=== PATIENT | male | born 1960 | race Caucasian/White ===

== ENCOUNTER → 2016-06-08 | Outpatient (CLI) | payer BC ==
[2016-06-08 18:57] LABS: ALT/SGPT 40 U/L (12-78); AST/SGOT 21 U/L (15-37); BLOOD UREA NITROGEN 11 mg/dl (7-18); BUN/CREATININE RATIO 11.2 (10-20); CALCIUM 9.1 mg/dl (8.5-10.1); CARBON DIOXIDE 26 mmol/L (21-32); CHLORIDE 103 mmol/L (98-107); GLUCOSE 88 mg/dl (70-99); POTASSIUM 4.1 mmol/L (3.5-5.1); SODIUM 139 mmol/L (136-145)
[2016-06-08 19:04] LABS: ALB/GLOB RATIO 1.2 (0.9-2); ALKALINE PHOSPHATASE 77 U/L (45-117); CHOLESTEROL 191 mg/dl (0-200); CHOLESTEROL/HDL RATIO 2.9; FREE PSA 0.16 ng/ml; HDL CHOLESTEROL 67 mg/dl; LDL CHOLESTEROL CALCULATED 107 mg/dl; PROSTATE SPECIFIC ANTIGEN 0.475 ng/ml (0.000-4.000); TRIGLYCERIDES 87 mg/dl (0-150); VERY LOW DENSITY LIPOPROT CALC 17 mg/dl
== END | disposition home or self-care (01) ==
LOC: C.LABSPEC 17:53
PROVIDERS: ATTEND Family Medicine
DX: Z00.00 Encounter for general adult medical examination without abnormal findings (principal)

== ENCOUNTER 2023-10-18 19:24 | Inpatient (IN) ==
[2023-10-18 20:34] LABS: Basophils # (auto) 0.04 K/uL (0.00-0.20); Basophils % (auto) 0.3 %; Eosinophils # (auto) 0.04 K/uL (0.00-0.50); Eosinophils % (auto) 0.3 %; Hematocrit (blood only) 41.2 % (42.0-52.0); Hemoglobin 14.6 g/dl (14.0-18.0); Immature Granulocytes # (auto) 0.07 K/uL (0.01-0.20); Immature Granulocytes % (auto) 0.5 %; Lymphocytes # (auto) 1.69 K/uL (1.20-3.40); Lymphocytes % (auto) 12.9 %; Mean Corpuscular Hemoglobin 30.5 pg (25.0-34.0); Mean Corpuscular Hgb Conc 35.4 g/dL (32.0-36.0); Monocytes # (auto) 0.95 K/uL (0.11-0.59); Monocytes % (auto) 7.2 %; Neutrophils # (auto) 10.35 K/uL (1.40-6.50); Neutrophils % (auto) 78.8 %; Platelet Count 402 K/uL (130-400); RDW Coefficient of Variation 11.8 % (11.5-14.5); RDW Standard Deviation 36.8 fL (36.4-46.3); Red Blood Count 4.79 M/uL (4.70-6.10); White Blood Count 13.14 K/ul (4.8-10.8)
[2023-10-18 20:59] LABS: Albumin Globulin Ratio 1.3 (0.9-2); Albumin Level 5.1 gm/dl (3.4-5.0); BUN Creatinine Ratio 10.3 (10-20); Bilirubin,Total 0.6 mg/dl (0.2-1.0); Calcium 10.4 mg/dl (8.6-10.3); Creatinine Clr Calc Pharmacy 76.2 ml/min; Est GFR (African American) 85.8 ml/min; Globulin 3.9 gm/dl (2.5-4.0); Potassium 3.7 mmol/L (3.5-5.1)
[2023-10-18] MEDS: OPTIRAY 320 100ml IV ONE (21:53)
[2023-10-18 22:15] LABS: Appearance Urine Clear (Clear); Bilirubin Urine Negative (Negative); Blood Urine Trace (Negative); Color Urine Dark Yellow; Epithelial Cell Urine Auto 0-2 /hpf (0-2); Glucose Urine UA Negative (Negative); Ketones Urine 1+ (Negative); Leukocyte Esterase Urine Trace (Negative); Nitrite Urine Negative (Negative); Protein Urine 1+ (Negative); Specific Gravity Urine 1.025 (1.000-1.030); Urobilinogen Urine Negative (Negative); WBC Urine Automated 0-5 /hpf (0-5)
[2023-10-18 22:40] LABS: Mucus Urine Present (None Prsent)
[2023-10-18 22:43] LABS: Bacteria Urine Automated 1+ (None Seen)
[2023-10-19] MEDS: SODIUM CHLORIDE 0.9% 1,000 ML IV ONE (00:28)
[2023-10-19] MEDS: cefTRIAXone SODIUM 2,000 MG/50 ML BAG IV STA (00:28)
--- NOTE | 2023-10-19 01:13 | CT Scan Report ---
Exam(s): CT ABDOMEN + PELVIS With Contrast IV Amt: 90ml optiray 320 EXAM: CT Abdomen and Pelvis With Intravenous Contrast CLINICAL HISTORY: Reason for exam: lower abdominal pain; dysuria. TECHNIQUE: Axial computed tomography images of the abdomen and pelvis with intravenous contrast. CTDI is 23.79 mGy and DLP is 1192.29 mGy-cm. Automated exposure control was utilized for the study. A dose lowering technique was utilized adhering to the principles of ALARA. CONTRAST: Patient received 90ml optiray 320 of IV contrast COMPARISON: No relevant prior studies available. FINDINGS: Lung bases: Unremarkable. No mass. No consolidation. ABDOMEN: Liver: Unremarkable. No mass. Gallbladder and bile ducts: Unremarkable. No calcified stones. No ductal dilation. Pancreas: Unremarkable. No mass. No ductal dilation. Spleen: Unremarkable. No splenomegaly. Adrenals: Unremarkable. No mass. Kidneys and ureters: Unremarkable. No solid mass. No hydronephrosis. Stomach and bowel: Diverticulosis, without acute diverticulitis. No small bowel obstruction. No free intraperitoneal air. PELVIS: Appendix: No findings to suggest acute appendicitis. Bladder: Mild wall thickening of the urinary bladder, correlate for UTI. Reproductive: Unremarkable as visualized. ABDOMEN and PELVIS: Intraperitoneal space: Unremarkable. No free air. No significant fluid collection. Bones/joints: Degenerative changes of the spine. No acute fracture. No dislocation. Soft tissues: Unremarkable. Vasculature: Atherosclerotic changes of the aorta. No abdominal aortic aneurysm. Lymph nodes: Unremarkable. No enlarged lymph nodes. IMPRESSION: Diverticulosis, without acute diverticulitis. No small bowel obstruction. No free intraperitoneal air. Mild wall thickening of the urinary bladder, correlate for UTI. Electronically signed by: Omi Valerio MD 10/19/23 01:12 AM
--- NOTE | 2023-10-19 03:53 | History & Physical Report ---
Date of Service October 19, 2023 Assessment & Plan (1) Hyponatremia: Plan: 62-year-old male with past medical history significant for prediabetes, mixed hyperlipidemia, hypertension, GERD, BPH, hereditary and idiopathic peripheral neuropathy, ongoing tobacco abuse, history of pulmonary embolism and history of DVT comes because of urinary symptoms also found to have hyponatremia. Patient states last week he went to urgent care in [place] because of difficulty micturating and was told possible prostatitis and was prescribed Bactrim. Started taking Bactrim last Tuesday. Initially symptoms seem to improved. Has an appointment with [facility] urology October 18. But since Tuesday again he started to develop same symptoms and came here. Has lower abdominal pain. When he came in lower abdominal pain was 7/10 in severity. He did not notice any blood in the urine. Somewhat constipated. Not eating much since his symptoms started. Denies any fevers. No chest pain or shortness of breath. No cough. No headache. No blurred vision. No runny nose or sore throat. Patient states smokes 1-1 and half packs cigarettes daily. Drinks 10-12 beers daily. Smokes marijuana couple of times a week. Patient states he did not drink alcohol this whole this week and he does not think will go through withdrawal. hyponatremia sodium 121 most likely beer potomania also seems poor oral intake last few days will check urine osmolality, urine sodium and serum osmolality gentle fluids normal saline at rate of 50 mill per hour BMP every 6 hours slow correction closely monitor labs holding chlorthalidone nephrology consult for further recommendations UTI BPH possible prostatitis empiric Rocephin continue home Flomax urology consult alcoholism drinks 10-12 beers daily alcohol withdrawal protocol with gabapentin and IV Ativan as needed banana bag p.o. thiamine and folic acid close monitor tobacco abuse needs counseling history of DVT and PE on Eliquis hypertension on lisinopril and metoprolol succinate holding chlorthalidone IV labetalol as needed will monitor hyperlipidemia on statin GERD on omeprazole history of palpitations metoprolol succinate nightly history of anxiety on Prozac DVT prophylaxis on Eliquis disposition telemetry full code. History of Present Illness Chief Complaint: acute UTI, hyponatremia, alcoholism Primary Care Provider: Raimundo Flaherty DO 62-year-old male with past medical history significant for prediabetes, mixed hyperlipidemia, hypertension, GERD, BPH, hereditary and idiopathic peripheral neuropathy, ongoing tobacco abuse, history of pulmonary embolism and history of DVT comes because of urinary symptoms also found to have hyponatremia. Patient states last week he went to urgent care in [place] because of difficulty micturating and was told possible prostatitis and was prescribed Bactrim. Started taking Bactrim last Tuesday. Initially symptoms seem to improved. Has an appointment with [facility] urology October 18. But since Tuesday again he started to develop same symptoms and came here. Has lower abdominal pain. When he came in lower abdominal pain was 7/10 in severity. He did not notice any blood in the urine. Somewhat constipated. Not eating much since his symptoms started. Denies any fevers. No chest pain or shortness of breath. No cough. No headache. No blurred vision. No runny nose or sore throat. Patient states smokes 1-1 and half packs cigarettes daily. Drinks 10-12 beers daily. Smokes marijuana couple of times a week. Patient states he did not drink alcohol this whole this week and he does not think will go through withdrawal. Past medical history. As mentioned above past surgical history. Colonoscopy. Social history. Smokes 1-1 and a pack a day for last 35 years. Alcohol 10-12 beers daily. Smokes marijuana couple of times a week. Family history. Mother had diabetes And hypertension. Allergies Allergy/AdvReac Type Severity Reaction Status Date / Time Penicillins Allergy Hives Verified 10/19/23 00:33 Home Medications Medication Instructions Recorded Confirmed Type apixaban 5 mg tablet (Eliquis) 5 mg PO BID 10/19/23 10/19/23 History chlorthalidone 25 mg tablet 12.5 mg PO QAM 10/19/23 10/19/23 History fluoxetine 20 mg capsule 20 mg PO QAM 10/19/23 10/19/23 History lisinopril 40 mg tablet 40 mg PO DAILY 10/19/23 10/19/23 History metoprolol succinate 25 mg 12.5 mg PO HS 10/19/23 10/19/23 History tablet,extended release 24 hr omeprazole 20 mg capsule,delayed 20 mg PO DAILYBB 10/19/23 10/19/23 History release pravastatin 10 mg tablet 10 mg PO QAM 10/19/23 10/19/23 History sulfamethoxazole 800 1 tab PO BID 10/19/23 10/19/23 History mg-trimethoprim 160 mg tablet tamsulosin 0.4 mg capsule 0.4 mg PO QAM 10/19/23 10/19/23 History Past Med/Surg History Problem List (Updated 10/19/23 @ 06:36 by Mari Tee DO) Acute hyponatremia (Acute) Urinary tract infection Hyponatremia Medical History HTN (hypertension) Family History Other Heart disease Hypertension Social History Smoking Status: Current every day smoker Tobacco Type: Cigarettes Preferred Language: Serbian Feels Safe at Home: Yes Review of Systems Review of Systems: All systems reviewed & are unremarkable except as noted in HPI & below Physical Exam Physical Exam: General- Not in distress Head- atraumatic Eyes- PERRL. ENT- oropharynx clear Neck- supple, no JVD. Lungs- clear to auscultation no wheezing or crackles. Heart- regular rhythm; no murmur, no gallop. Abdomen- normal bowel sounds, soft, nontender, no distension Extremities- no pretibial edema, no erythema seen Neuro- alert, oriented PERRL, ; no facial palsy; no dysarthria; moves extremities. Results & Data Results & Data Vital Signs (Past 12 Hours) Vital Signs Temp Pulse Pulse Resp BP BP Pulse Ox 10/19/23 03:20 67 16 154/84 H 97 10/19/23 01:30 70 17 143/82 H 98 10/19/23 00:30 86 17 174/96 H 99 10/19/23 00:20 81 10/19/23 00:19 86 13 95 10/18/23 19:45 36.7 C 108 H 16 173/104 H 97 O2 Del Method 10/19/23 03:20 Room Air 10/19/23 01:30 Room Air 10/19/23 00:30 Room Air 10/19/23 00:20 10/19/23 00:19 Room Air 10/18/23 19:45 Room Air Diagnostic Findings Laboratory Results WBC 13.14 K/ul (4.8-10.8) H 10/18/23 20:16 RBC 4.79 M/uL (4.70-6.10) 10/18/23 20:16 Hgb 14.6 g/dl (14.0-18.0) 10/18/23 20:16 Hct 41.2 % (42.0-52.0) L 10/18/23 20:16 MCV 86.0 fL (80.0-100.0) 10/18/23 20:16 MCH 30.5 pg (25.0-34.0) 10/18/23 20:16 MCHC 35.4 g/dL (32.0-36.0) 10/18/23 20:16 RDW Std Deviation 36.8 fL (36.4-46.3) 10/18/23 20:16 RDW Coeff of Tyron 11.8 % (11.5-14.5) 10/18/23 20:16 Plt Count 402 K/uL (130-400) H 10/18/23 20:16 MPV 9.0 fL (9.4-12.4) L 10/18/23 20:16 Immature Gran % (Auto) 0.5 % 10/18/23 20:16 Neut % (Auto) 78.8 % 10/18/23 20:16 Lymph % (Auto) 12.9 % 10/18/23 20:16 Murray % (Auto) 7.2 % 10/18/23 20:16 Eos % (Auto) 0.3 % 10/18/23 20:16 Baso % (Auto) 0.3 % 10/18/23 20:16 Neut # (Auto) 10.35 K/uL (1.40-6.50) H 10/18/23 20:16 Lymph # (Auto) 1.69 K/uL (1.20-3.40) 10/18/23 20:16 Murray # (Auto) 0.95 K/uL (0.11-0.59) H 10/18/23 20:16 Eos # (Auto) 0.04 K/uL (0.00-0.50) 10/18/23 20:16 Baso # (Auto) 0.04 K/uL (0.00-0.20) 10/18/23 20:16 Immature Gran # (Auto) 0.07 K/uL (0.01-0.20) 10/18/23 20:16 Sodium 121 mmol/L (136-145) L 10/18/23 20:16 Potassium 3.7 mmol/L (3.5-5.1) 10/18/23 20:16 Chloride 86 mmol/L (98-107) L 10/18/23 20:16 Carbon Dioxide 24 mmol/L (21-32) 10/18/23 20:16 Anion Gap 11 (3-11) 10/18/23 20:16 BUN 11 mg/dl (6-23) 10/18/23 20:16 Creatinine 1.07 mg/dl (0.6-1.4) 10/18/23 20:16 Est Cr Clr Drug Dosing 76.2 ml/min 10/18/23 20:16 Est GFR ( Amer) 85.8 ml/min 10/18/23 20:16 Est GFR (Non-Af Amer) 74.0 ml/min 10/18/23 20:16 BUN/Creatinine Ratio 10.3 (10-20) 10/18/23 20:16 Glucose 129 mg/dl (70-99(Fasting)) H 10/18/23 20:16 Calcium 10.4 mg/dl (8.6-10.3) H 10/18/23 20:16 Total Bilirubin 0.6 mg/dl (0.2-1.0) 10/18/23 20:16 AST 20 U/L (13-39) 10/18/23 20:16 ALT 26 U/L (7-52) 10/18/23 20:16 Alkaline Phosphatase 119 U/L (34-104) H 10/18/23 20:16 Total Protein 9.0 gm/dl (6.0-8.3) H 10/18/23 20:16 Albumin 5.1 gm/dl (3.4-5.0) H 10/18/23 20:16 Globulin 3.9 gm/dl (2.5-4.0) 10/18/23 20:16 Albumin/Globulin Ratio 1.3 (0.9-2) 10/18/23 20:16 Lipase 69 U/L (11-82) 10/18/23 20:16 Urine Color Dark Yellow 10/18/23 21:22 Urine Appearance Clear (Clear) 10/18/23 21:22 Urine pH 7.0 (4.5-7.5) 10/18/23 21:22 Ur Specific [place] 1.025 (1.000-1.030) 10/18/23 21:22 Urine Protein 1+ (Negative) H 10/18/23 21:22 Urine Glucose (UA) Negative (Negative) 10/18/23 21:22 Urine Ketones 1+ (Negative) H 10/18/23 21:22 Urine Blood Trace (Negative) H 10/18/23 21:22 Urine Nitrite Negative (Negative) 10/18/23 21:22 Urine Bilirubin Negative (Negative) 10/18/23 21:22 Urine Urobilinogen Negative (Negative) 10/18/23 21:22 Ur Leukocyte Esterase Trace (Negative) H 10/18/23 21:22 Urine WBC (Auto) 0-5 /hpf (0-5) 10/18/23 21:22 Urine RBC (Auto) 6-10 /hpf (0-2) H 10/18/23 21:22 U Hyaline Cast (Auto) 3-5 /lpf (0-2) H 10/18/23 21:22 U Epithel Cells (Auto) 0-2 /hpf (0-2) 10/18/23 21:22 Urine Bacteria (Auto) 1+ (None Seen) H 10/18/23 21:22 Urine Mucus Present (None Prsent) A 10/18/23 21:22 Ethyl Alcohol mg/dL < 10.0 mg/dl (<10.0) 10/18/23 20:16 Impressions Abdomen/Pelvis CT 10/18/23 19:36 Exam(s): CT ABDOMEN + PELVIS With Contrast IV Amt: 90ml optiray 320 EXAM: CT Abdomen and Pelvis With Intravenous Contrast CLINICAL HISTORY: Reason for exam: lower abdominal pain; dysuria. TECHNIQUE: Axial computed tomography images of the abdomen and pelvis with intravenous contrast. CTDI is 23.79 mGy and DLP is 1192.29 mGy-cm. Automated exposure control was utilized for the study. A dose lowering technique was utilized adhering to the principles of ALARA. CONTRAST: Patient received 90ml optiray 320 of IV contrast COMPARISON: No relevant prior studies available. FINDINGS: Lung bases: Unremarkable. No mass. No consolidation. ABDOMEN: Liver: Unremarkable. No mass. Gallbladder and bile ducts: Unremarkable. No calcified stones. No ductal dilation. Pancreas: Unremarkable. No mass. No ductal dilation. Spleen: Unremarkable. No splenomegaly. Adrenals: Unremarkable. No mass. Kidneys and ureters: Unremarkable. No solid mass. No hydronephrosis. Stomach and bowel: Diverticulosis, without acute diverticulitis. No small bowel obstruction. No free intraperitoneal air. PELVIS: Appendix: No findings to suggest acute appendicitis. Bladder: Mild wall thickening of the urinary bladder, correlate for UTI. Reproductive: Unremarkable as visualized. ABDOMEN and PELVIS: Intraperitoneal space: Unremarkable. No free air. No significant fluid collection. Bones/joints: Degenerative changes of the spine. No acute fracture. No dislocation. Soft tissues: Unremarkable. Vasculature: Atherosclerotic changes of the aorta. No abdominal aortic aneurysm. Lymph nodes: Unremarkable. No enlarged lymph nodes. IMPRESSION: Diverticulosis, without acute diverticulitis. No small bowel obstruction. No free intraperitoneal air. Mild wall thickening of the urinary bladder, correlate for UTI. Electronically signed by: Omi Valerio MD 10/19/23 01:12 AM Code Status & VTE Plan VTE Prophylaxis Plan VTE Prophylaxis will be ordered: Yes
--- NOTE | 2023-10-19 04:26 | Urology Consultation ---
Date of Consultation October 19, 2023 Assessment & Plan (1) Urinary tract infection: The patient has been admitted on the hospitalist service. She is noted to have hyponatremia we will defer management this condition to the primary service Concerning patient's urologic issues we recommend proceeding as follows: The patient has been placed on empiric Rocephin. This should continue until his urine culture which has been sent is back at which time antibiotics be tailored based on these results May be beneficial to have patient have a PSA checked once his acute issue has been adequately treated The patient has already noted some symptomatic relief since he has had intravenous antibiotics initiated Additional recommendations be forthcoming based on his clinical course as it unfolds History of Present Illness Reason for Consultation: Urinary tract infection, concern for possible prostatitis Attending Physician: Cj Helms MD History of Present Illness This is a 62-year-old male who presented the emergency department secondary to urinary complaints. The patient notes for approximately 1 week he has been h aving urinary difficulties. He notes that he was having some burning with urination and he does admit to some urinary hesitancy and some incomplete bladder emptying. He does feel as though his urine stream was normal however. He also admits to some right lower abdominal pain as well as right flank pain. He denies any perineal pain. He denies any nausea or vomiting. He denies any fevers, shakes, or chills. He was seen at an urgent care recently and placed was placed on Bactrim secondary to these complaints. He notes he was initially feeling better with only to have return of his complaints at that time. The patient notes that due to his urinary complaints he tentatively made it an appointment to see [facility] group urology and his appointment was scheduled for tomorrow. Since arrival to the hospital the patient has had labs and imaging which I independent reviewed. A CT scan of the abdomen pelvis showed some mild thickening of the urinary bladder which was suggestive of urinary tract infection. Labs included CBC her white blood cell count was elevated at 13.1. Hemoglobin was normal and his hematocrit was slightly low at 41.2. Platelet count was 402,000. Chemistry profile showed sodium was 121 with a normal potassium. BUN and creatinine were both within the normal range. A urinalysis was negative for nitrites but did show trace leukocyte Estrace and no pyuria. There is 1+ bacteria on this study. At the time my interview the patient was resting comfortably in bed he was no distress. Allergies Allergy/AdvReac Type Severity Reaction Status Date / Time Penicillins Allergy Hives Verified 10/19/23 00:33 Home Medications Medication Instructions Recorded Confirmed Type apixaban 5 mg tablet (Eliquis) 5 mg PO BID 10/19/23 10/19/23 History chlorthalidone 25 mg tablet 12.5 mg PO QAM 10/19/23 10/19/23 History fluoxetine 20 mg capsule 20 mg PO QAM 10/19/23 10/19/23 History lisinopril 40 mg tablet 40 mg PO DAILY 10/19/23 10/19/23 History metoprolol succinate 25 mg 12.5 mg PO HS 10/19/23 10/19/23 History tablet,extended release 24 hr omeprazole 20 mg capsule,delayed 20 mg PO DAILYBB 10/19/23 10/19/23 History release pravastatin 10 mg tablet 10 mg PO QAM 10/19/23 10/19/23 History sulfamethoxazole 800 1 tab PO BID 10/19/23 10/19/23 History mg-trimethoprim 160 mg tablet tamsulosin 0.4 mg capsule 0.4 mg PO QAM 10/19/23 10/19/23 History Patient History Medical History HTN (hypertension) Family History Other Heart disease Hypertension Social History Smoking Status: Current every day smoker Tobacco Type: Cigarettes Preferred Language: Colombian Feels Safe at Home: Yes Review of Systems Review of Systems: All systems reviewed & are unremarkable except as noted in HPI & below Physical Exam Constitutional: WD/WN, vitals as above Eyes: no conjunctival abnormality ENMT: Ears: no hearing impairment and no external ear abnormality Mouth: no oropharynx abnormality Neck: trachea midline Respiratory: normal respiratory effort; no respiratory distress and no labored breathing Cardiovascular: Rate/Rhythm: regular rate and regular rhythm Gastrointestinal (Abdomen): Abdomen is soft and nondistended. There is no pain with palpation. Musculoskeletal: No calf tenderness Skin: no rashes Psychiatric: A+Ox3, euthymic affect Genitourinary: No CVA tenderness with percussion bilaterally Results & Data Vital Signs (Past 12 Hours) Vital Signs Temp Pulse Pulse Resp BP BP Pulse Ox 10/19/23 03:20 67 16 154/84 H 97 10/19/23 01:30 70 17 143/82 H 98 10/19/23 00:30 86 17 174/96 H 99 10/19/23 00:20 81 10/19/23 00:19 86 13 95 10/18/23 19:45 36.7 C 108 H 16 173/104 H 97 O2 Del Method 10/19/23 03:20 Room Air 10/19/23 01:30 Room Air 10/19/23 00:30 Room Air 10/19/23 00:20 10/19/23 00:19 Room Air 10/18/23 19:45 Room Air PG Care Time/CCT Total # of Minutes Spent Total Time Spent with Patient: Total time spent is greater than 50% in coordination of care (as documented) at patient's floor/unit and/or counseling patient: Coding Level of Care Code 63158 IN/OBS CONSULT LVL 5,80M Diagnoses Urinary tract infection N39.0
[2023-10-19] MEDS ORDERED: ACETAMINOPHEN 325 MG TAB PO PRN (05:43)
[2023-10-19] MEDS ORDERED: LORazepam 1 MG in SYRINGE 0.5 ML IV PRN (05:43)
[2023-10-19] MEDS ORDERED: NITROGLYCERIN SL 0.4 MG/TAB TAB SL PRN (05:43)
[2023-10-19] MEDS ORDERED: LORazepam 3 MG in SYRINGE 1.5 ML IV PRN (05:43)
[2023-10-19] MEDS ORDERED: LORazepam 2 MG in SYRINGE 1 ML IV PRN (05:43)
[2023-10-19] MEDS ORDERED: LABETALOL HCL IV 5 MG/ML 20ML IV PRN (05:43)
[2023-10-19] MEDS ORDERED: GABAPENTIN 1200MG ALCOHOL WITHDRAWAL LOAD PO STA (05:43)
[2023-10-19] MEDS ORDERED: Ativan IV Alcohol Withdrawal--Active Protocol IV PRN (05:43)
[2023-10-19] MEDS: GABAPENTIN 600 MG TAB PO ONE (06:06)
[2023-10-19] MEDS: PANTOprazole 40 MG TAB PO SCH (06:08)
[2023-10-19] MEDS: MULTI-VITAMIN INFUSION 10 ML, THIAMINE HCL 100 MG, FOLIC ACID 1 MG in SODIUM CHLORIDE 0... IV ONE (06:32)
--- NOTE | 2023-10-19 06:36 | Emergency Department Note ---
Impression & Plan Acute hyponatremia, Acute prostatitis admit to the [facility] [place] ED Provider Note NAME: JASWANT DE SANTIAGO AGE: 62 SEX: Male INFORMANT: Patient ED PROVIDER(S): Mari Tee DO CHIEF COMPLAINT: Abdominal pain and dysuria PLAN: Disposition: admit to the [facility] [place] MEDICAL DECISION MAKING: this is a 62-year-old male patient who presents to the emergency department with lower abdominal pain and urinary symptoms. The patient had been on Bactrim to treat prostatitis. He feels as if the symptoms are not improving. Patient was noted to be significantly hyponatremic. He does have a history of this and was told this was secondary to his alcohol abuse. When the diagnosis was made earlier this year, the patient stopped drinking alcohol and his sodium rebounded to 136. Unfortunately, the patient began to drink again(12-15 beers a day) and the sodium has dropped back down to 121. laboratory studies revealed white blood cell count was 13.1. H&H were stable. Glucose was 129. Urinalysis appears to be infected. We will start the patient on IV antibiotics here in the emergency department along with IV normal saline solution. Patient went for CT scan of the abdomen/pelvis which was unremarkable. [facility]. Triage Nursing notes: reviewed and agree With them. Vital Signs: reviewed and remarkable for hypertension and tachycardia Chronic Medical/Social Conditions affecting care: alcohol abuse Prior/ Outside/ External records reviewed: I reviewed patient's most recent laboratory values in the [facility] [employer] system Differential Diagnosis: acute UTI, prostatitis, urinary hesitancy, electrolyte abnormality, cystitis Diagnostics, independently interpreted by me: Imaging studies: CT scan of the abdomen/pelvis: As per stat rad HPI: 62 year old Male arrives for evaluation of abdominal pain and dysuria. patient had been diagnosed with prostatitis last week and started on Bactrim. He felt as if the symptoms were initially improving but then began to worsen again despite taking the Bactrim. He then began to develop some dysuria. PAST MEDICAL HISTORY: See Below, PAST SURGICAL HISTORY: See Below, SOCIAL HISTORY: See Below, HOME MEDICATIONS: See list ALLERGIES: penicillin VITALS: See Below PHYSICAL EXAMINATION: HEENT: Head - normocephalic and atraumatic. Pupils are equal, round, and reactive to light. Extraocular eye muscles are intact, and sclera are anicteric. Nose - moist nasal mucosa without discharge. Mouth - moist buccal mucosa. Oropharynx is nonerythematous and there is no tonsillar exudate or edema noted. Neck: Supple; no cervical lymphadenopathy or nuchal rigidity Heart: Tachycardic rate and regular rhythm. There is a normal S1 and S2 with no murmurs, clicks, or gallops appreciated. Lungs: Clear to auscultation bilaterally with no wheezes, rales, or rhonchi. Abdomen: Soft, completely nontender, nondistended, with good bowel sounds. There are no palpable pulsatile masses or hepatosplenomegaly. There is no guarding, rigidity, or rebound noted. Extremities: No evidence of cyanosis, clubbing, or edema. There are easily palpable peripheral pulses. Skin: warm and dry with good turgor and no rashes. emergency department treatment: IV normal saline bolus, IV Rocephin Emergency department course: Patient was initially evaluated out in WC 09. He was then moved into the ED proper. An IV lock was initiated and labs were drawn as above. Urine specimen was obtained. Patient was bolused with IV normal saline solution. He went for CT scan of the abdomen/pelvis. He was started on IV Rocephin. I discussed the case with the [facility] Hospitalist and they will evaluate for further inpatient care. Past Med/Surg History Problem List (Updated 10/20/23 @ 06:40 by Mari Tee DO) Acute prostatitis (Acute) Alcohol withdrawal syndrome without complication Alcohol abuse Chronic anticoagulation Prostatitis, acute Acute hyponatremia (Acute) Urinary tract infection Hyponatremia Medical History HTN (hypertension) Family History Other Heart disease Hypertension Social History Smoking Status: Current every day smoker Tobacco Type: Cigarettes Hx Alcohol Use: Yes Alcohol type: beer Hx Substance Use: No Preferred Language: Khmer Communication Ability: Effective Clinical Services Specialist Required: No Beliefs That Will Affect Care: None Current Living Situation: Spouse Other Information That Helps Us Care for You: No Feels Safe at Home: Yes Safety Concerns: Feels Safe At This Time Assistive Devices: None Allergies Allergies Allergy/AdvReac Type Severity Reaction Status Date / Time Penicillins Allergy Hives Verified 10/19/23 00:33 Home Meds Home Medications Medication Instructions Recorded Confirmed apixaban 5 mg tablet (Eliquis) 5 mg PO BID 10/19/23 10/19/23 chlorthalidone 25 mg tablet 12.5 mg PO QAM 10/19/23 10/19/23 fluoxetine 20 mg capsule 20 mg PO [facility] 10/19/23 10/19/23 lisinopril 40 mg tablet 40 mg PO DAILY 10/19/23 10/19/23 metoprolol succinate 25 mg 12.5 mg PO HS 10/19/23 10/19/23 tablet,extended release 24 hr omeprazole 20 mg capsule,delayed 20 mg PO DAILYBB 10/19/23 10/19/23 release pravastatin 10 mg tablet 10 mg PO QA 10/19/23 10/19/23 sulfamethoxazole 800 1 tab PO BID 10/19/23 10/19/23 mg-trimethoprim 160 mg tablet tamsulosin 0.4 mg capsule 0.4 mg PO [facility] 10/19/23 10/19/23 Results & Data (ED) Vital Signs Vital Signs - 24 hr 10/19/23 00:19 10/19/23 00:20 10/19/23 00:30 Pulse Rate 86 81 Pulse Rate [Right Finger] 86 Respiratory Rate 13 17 Blood Pressure [Left Arm] 174/96 H Blood Pressure Mean [Left Arm] 122 Blood Pressure Position [Left Arm] Pulse Oximetry 95 99 Oxygen Delivery Method Room Air Room Air 10/19/23 01:30 10/19/23 03:20 Pulse Rate Pulse Rate [Right Finger] 70 67 Respiratory Rate 17 16 Blood Pressure [Left Arm] 143/82 H 154/84 H Blood Pressure Mean [Left Arm] 102 107 Blood Pressure Position [Left Arm] Lying Pulse Oximetry 98 97 Oxygen Delivery Method Room Air Room Air Laboratory Data 10/19/23 06:41 10/19/23 19:12 Lab Results 10/18/23 10/18/23 Range/Units 20:16 21:22 WBC 13.14 H (4.8-10.8) K/ul RBC 4.79 (4.70-6.10) M/uL Hgb 14.6 (14.0-18.0) g/dl Hct 41.2 L (42.0-52.0) % MCV 86.0 (80.0-100.0) fL MCH 30.5 (25.0-34.0) pg MCHC 35.4 (32.0-36.0) g/dL RDW Std Deviation 36.8 (36.4-46.3) fL RDW Coeff of Tyron 11.8 (11.5-14.5) % Plt Count 402 H (130-400) K/uL MPV 9.0 L (9.4-12.4) fL Immature Gran % (Auto) 0.5 % Neut % (Auto) 78.8 % Lymph % (Auto) 12.9 % Terrell % (Auto) 7.2 % Eos % (Auto) 0.3 % Baso % (Auto) 0.3 % Neut # (Auto) 10.35 H (1.40-6.50) K/uL Lymph # (Auto) 1.69 (1.20-3.40) K/uL Terrell # (Auto) 0.95 H (0.11-0.59) K/uL Eos # (Auto) 0.04 (0.00-0.50) K/uL Baso # (Auto) 0.04 (0.00-0.20) K/uL Immature Gran # (Auto) 0.07 (0.01-0.20) K/uL Sodium 121 L (136-145) mmol/L Potassium 3.7 (3.5-5.1) mmol/L Chloride 86 L (98-107) mmol/L Carbon Dioxide 24 (21-32) mmol/L Anion Gap 11 (3-11) BUN 11 (6-23) mg/dl Creatinine 1.07 (0.6-1.4) mg/dl Est Cr Clr Drug Dosing 76.2 ml/min Est GFR ( Amer) 85.8 ml/min Est GFR (Non-Af Amer) 74.0 ml/min BUN/Creatinine Ratio 10.3 (10-20) Glucose 129 H (70-99(Fasting)) mg/dl Calcium 10.4 H (8.6-10.3) mg/dl Total Bilirubin 0.6 (0.2-1.0) mg/dl AST 20 (13-39) U/L ALT 26 (7-52) U/L Alkaline Phosphatase 119 H (34-104) U/L Total Protein 9.0 H (6.0-8.3) gm/dl Albumin 5.1 H (3.4-5.0) gm/dl Globulin 3.9 (2.5-4.0) gm/dl Albumin/Globulin Ratio 1.3 (0.9-2) Lipase 69 (11-82) U/L Urine Color Dark Yellow Urine Appearance Clear (Clear) Urine pH 7.0 (4.5-7.5) Ur Specific [place] 1.025 (1.000-1.030) Urine Protein 1+ H (Negative) Urine Glucose (UA) Negative (Negative) Urine Ketones 1+ H (Negative) Urine Blood Trace H (Negative) Urine Nitrite Negative (Negative) Urine Bilirubin Negative (Negative) Urine Urobilinogen Negative (Negative) Ur Leukocyte Esterase Trace H (Negative) Urine WBC (Auto) 0-5 (0-5) /hpf Urine RBC (Auto) 6-10 H (0-2) /hpf U Hyaline Cast (Auto) 3-5 H (0-2) /lpf U Epithel Cells (Auto) 0-2 (0-2) /hpf Urine Bacteria (Auto) 1+ H (None Seen) Urine Mucus Present A (None Prsent) Ethyl Alcohol mg/dL < 10.0 (<10.0) mg/dl Administered Medications Apixaban (Apixaban 5 Mg Tablet) 5 mg PO BID [facility] Stop: 11/18/23 08:59 Last Admin: 10/19/23 20:52 Dose: 5 mg Documented By: Admin: 10/19/23 08:42 Dose: 5 mg Documented By: JOEL Fluoxetine HCl (Fluoxetine Hcl 20 Mg Cap) 20 mg PO QAM [facility] Stop: 11/18/23 08:59 Last Admin: 10/19/23 08:42 Dose: 20 mg Documented By: JOEL Folic Acid (Folic Acid 1 Mg Tab) 1 mg PO QAM [facility] Stop: 11/18/23 08:59 Last Admin: 10/19/23 08:42 Dose: 1 mg Documented By: JOEL Gabapentin (Gabapentin 600 Mg Tab) 600 mg PO Q8H [facility] Stop: 10/20/23 16:01 Last Admin: 10/19/23 23:06 Dose: 600 mg Documented By: ELIAN Sodium Chloride (Nss) 1,000 mls @ 50 mls/hr IV .Q20H [facility] Stop: 11/18/23 07:44 Last Admin: 10/20/23 01:54 Dose: 50 mls/hr Documented By: Infusion: 10/20/23 01:54 Dose: Infused Documented By: Admin: 10/19/23 07:16 Dose: 50 mls/hr Documented By: JOEL Ceftriaxone Sodium (Rocephin) 2,000 mg in 50 mls @ 100 mls/hr IV Q24H [facility] Stop: 10/29/23 21:59 Last Infusion: 10/19/23 21:29 Dose: Infused Documented By: Admin: 10/19/23 20:49 Dose: 100 mls/hr Documented By: ELIAN Metoprolol Succinate (Metoprolol Succ 25mg Ext Rel Tab) 12.5 mg PO [facility] Stop: 11/18/23 20:59 Last Admin: 10/19/23 20:50 Dose: 12.5 mg Documented By: ELIAN Pantoprazole [facility] 40 Mg Tab) [facility]: 11/18/23 06:29 Last Admin: 10/20/23 06:20 Dose: 40 mg Documented By: Admin: 10/19/23 06:08 Dose: 40 mg Documented By: ELI Pravastatin Sodium (Pravastatin Sod 10 Mg Tab) 10 mg PO [facility] Stop: 11/18/23 08:59 Last Admin: 10/19/23 08:42 Dose: 10 mg Documented By: JOEL Tamsulosin HCl (Tamsulosin Hcl 0.4 Mg Cap) 0.4 mg PO [facility] Stop: 11/18/23 08:59 Last Admin: 10/19/23 08:42 Dose: 0.4 mg Documented By: JOEL Thiamine HCl (Thiamine Hcl 100 Mg Tab) [facility] [place] [facility] [place]: 11/18/23 08:59 Last Admin: 10/19/23 08:42 Dose: 100 mg Documented By: JOEL Urea (Urea (Urea-Na) 15 Gm Pack) 15 gm PO BID [facility] Stop: 11/18/23 14:14 Last Admin: 10/19/23 21:02 Dose: 15 gm Documented By: Admin: 10/19/23 15:18 Dose: 15 gm Documented By: LAVERNE Discontinued Medications Furosemide (Furosemide Inj 20 Mg/2 Ml Vial) 20 mg IV ONE ONE Stop: 10/19/23 14:16 Last Admin: 10/19/23 15:19 Dose: 20 mg Documented By: LAVERNE Furosemide (Furosemide Inj 20 Mg/2 Ml Vial) 20 mg IV ONE ONE Stop: 10/19/23 14:43 Last Admin: 10/19/23 15:35 Dose: 20 mg Documented By: LAVERNE Gabapentin (Gabapentin 600 Mg Tab) 1,200 mg PO NOW ONE Stop: 10/19/23 05:44 Last Admin: 10/19/23 06:06 Dose: 1,200 mg Documented By: ELI Gabapentin (Gabapentin 600 Mg Tab) 600 mg PO Q6H [facility] Stop: 10/19/23 18:01 Last Admin: 10/19/23 17:12 Dose: 600 mg Documented By: Admin: 10/19/23 11:37 Dose: 600 mg Documented By: LAVERNE Sodium Chloride (Nss) 1,000 mls @ 999 mls/hr IV .Q1H1M ONE Stop: 10/19/23 01:04 Last Infusion: 10/19/23 01:25 Dose: Infused Documented By: Admin: 10/19/23 00:28 Dose: 999 mls/hr Documented By: ELI Ceftriaxone Sodium (Rocephin) 2,000 mg in 50 mls @ 100 mls/hr IV NOW STA Stop: 10/19/23 00:38 Last Infusion: 10/19/23 01:25 Dose: Infused Documented By: Admin: 10/19/23 00:28 Dose: 100 mls/hr Documented By: ELI Multivitamins 10 ml/ Thiamine HCl 100 mg/ Folic Acid 1 mg/Sodium Chloride 1,011.2 mls @ 500 mls/hr IV .Q2H2M ONE Stop: 10/19/23 07:44 Last Infusion: 10/19/23 08:44 Dose: Infused Documented By: Admin: 10/19/23 06:32 Dose: 500 mls/hr Documented By: JIMENA Ioversol (Optiray 320 100ml) 90 ml IV ONCE ONE Stop: 10/18/23 21:54 Last Admin: 10/18/23 21:53 Dose: 90 ml Documented By: DIMA Lisinopril (Lisinopril 40 Mg Tab) 40 mg PO DAILY [facility] Stop: 11/18/23 08:59 Last Admin: 10/19/23 08:42 Dose: 40 mg Documented By: MMG Imaging Data Radiologist's Impression: Abdomen/Pelvis CT 10/18/23 19:36 Exam(s): CT ABDOMEN + PELVIS With Contrast IV Amt: 90ml optiray 320 EXAM: CT Abdomen and Pelvis With Intravenous Contrast CLINICAL HISTORY: Reason for exam: lower abdominal pain; dysuria. TECHNIQUE: Axial computed tomography images of the abdomen and pelvis with intravenous contrast. CTDI is 23.79 mGy and DLP is 1192.29 mGy-cm. Automated exposure control was utilized for the study. A dose lowering technique was utilized adhering to the principles of ALARA. CONTRAST: Patient received 90ml optiray 320 of IV contrast COMPARISON: No relevant prior studies available. FINDINGS: Lung bases: Unremarkable. No mass. No consolidation. ABDOMEN: Liver: Unremarkable. No mass. Gallbladder and bile ducts: Unremarkable. No calcified stones. No ductal dilation. Pancreas: Unremarkable. No mass. No ductal dilation. Spleen: Unremarkable. No splenomegaly. Adrenals: Unremarkable. No mass. Kidneys and ureters: Unremarkable. No solid mass. No hydronephrosis. Stomach and bowel: Diverticulosis, without acute diverticulitis. No small bowel obstruction. No free intraperitoneal air. PELVIS: Appendix: No findings to suggest acute appendicitis. Bladder: Mild wall thickening of the urinary bladder, correlate for UTI. Reproductive: Unremarkable as visualized. ABDOMEN and PELVIS: Intraperitoneal space: Unremarkable. No free air. No significant fluid collection. Bones/joints: Degenerative changes of the spine. No acute fracture. No dislocation. Soft tissues: Unremarkable. Vasculature: Atherosclerotic changes of the aorta. No abdominal aortic aneurysm. Lymph nodes: Unremarkable. No enlarged lymph nodes. IMPRESSION: Diverticulosis, without acute diverticulitis. No small bowel obstruction. No free intraperitoneal air. Mild wall thickening of the urinary bladder, correlate for UTI. Electronically signed by: Omi Valerio MD 10/19/23 01:12 AM Discharge Plan Visit Data Chief Complaint: Urinary Symptoms Stated Complaint: PROSTATITIS, LITTLE URINATION, ABD/PELVIC PAIN ED Provider: Mari Tee Discharge Problem: Acute hyponatremia, Acute prostatitis Patient Disposition: Admitted As Inpatient Discharge Instructions Interventions: ED Discharge Assessment Last Done: 10/19/23 05:44
[2023-10-19] MEDS: SODIUM CHLORIDE 0.9% 1,000 ML IV SCH (07:16)
[2023-10-19 07:49] LABS: Basophils # (auto) 0.04 K/uL (0.00-0.20); Basophils % (auto) 0.5 %; Eosinophils # (auto) 0.11 K/uL (0.00-0.50); Eosinophils % (auto) 1.3 %; Hematocrit (blood only) 36.3 % (42.0-52.0); Hemoglobin 12.9 g/dl (14.0-18.0); Immature Granulocytes # (auto) 0.04 K/uL (0.01-0.20); Immature Granulocytes % (auto) 0.5 %; Lymphocytes # (auto) 1.37 K/uL (1.20-3.40); Lymphocytes % (auto) 16.6 %; Mean Corpuscular Hgb Conc 35.5 g/dL (32.0-36.0); Mean Corpuscular Volume 84.4 fL (80.0-100.0); Mean Platelet Volume 9.3 fL (9.4-12.4); Monocytes # (auto) 0.77 K/uL (0.11-0.59); Monocytes % (auto) 9.3 %; Neutrophils # (auto) 5.92 K/uL (1.40-6.50); Neutrophils % (auto) 71.8 %; Platelet Count 340 K/uL (130-400); RDW Coefficient of Variation 11.8 % (11.5-14.5); RDW Standard Deviation 35.9 fL (36.4-46.3); White Blood Count 8.25 K/ul (4.8-10.8)
[2023-10-19 07:53] LABS: BUN Creatinine Ratio 11.5 (10-20); Creatinine Clr Calc Pharmacy 93.8 ml/min; Est GFR (African American) 107.2 ml/min; Est GFR (Non-African American) 92.5 ml/min; Magnesium 1.9 mg/dl (1.7-2.4); Phosphorus 4.2 mg/dl (2.5-4.9); Potassium 3.9 mmol/L (3.5-5.1)
[2023-10-19] MEDS: FOLIC ACID 1 MG TAB PO SCH (08:42)
[2023-10-19] MEDS: FLUoxetine HCL 20 MG CAP PO SCH (08:42)
[2023-10-19] MEDS: lisinopril 40 MG TAB PO SCH (08:42)
[2023-10-19] MEDS: TAMSULOSIN HCL 0.4 MG CAP PO SCH (08:42)
[2023-10-19] MEDS: APIXABAN 5 MG TABLET PO SCH (08:42)
[2023-10-19] MEDS: THIAMINE HCL 100 MG TAB PO SCH (08:42)
[2023-10-19] MEDS: PRAVASTATIN SOD 10 MG TAB PO SCH (08:42)
[2023-10-19] MEDS: GABAPENTIN 600 MG TAB PO SCH ×2 (11:37→23:06)
[2023-10-19 13:20] LABS: BUN Creatinine Ratio 10.7 (10-20); Calcium 9.3 mg/dl (8.6-10.3); Creatinine Clr Calc Pharmacy 79.2 ml/min; Est GFR (African American) 89.8 ml/min; Est GFR (Non-African American) 77.5 ml/min; Potassium 4.4 mmol/L (3.5-5.1)
--- NOTE | 2023-10-19 13:57 | Nephrology Consultation ---
Date of Consultation October 19, 2023 Assessment & Plan (1) Hyponatremia: Acute on chronic issue. He has h/o beer potomania. Na normal when less beer and low when high as per outpt review of labs. He is also on Chlorthalidone which in a person prone to low Na is not a good choice at all and should never be used. the effect of this will be there for few days if he needs diuretics he can have Loop diuretics only. na 121 but has stalled at 121--123 range. Add lasix 20 iv for free water diuresis. Continue NS at 50/hr. Also add urea-na 15 bid. No beer. FFR 1800 ml per day. (2) Urinary tract infection: On iV abx but urine C>s from 10/10 was negative Plan time spent 52 mins. History of Present Illness Reason for Consultation: hyponatremia Attending Physician: Tommy Hawk DO History of Present Illness 62-year-old male with well-known history of hyponatremia related with super excessive beer intake. I reviewed his outpatient blood work and he has had sodium as low as 122 which then improved to completely normal as soon as it cut down/Stops Beer. Admitted yesterday for Acute prostatitis/ UTI, hyponatremia, alcoholism. He was started on Bactrim as outpt on 10/11/2023 for presmued UTI. However Urine C/s was negative. Since admission on Ceftriaxone. Was seen by urology earlier today. na on admission was 121 and most recent 123. Chlorthalidone stopped and is on NS currently. he feels normal currently. NO UTI symptoms now. ROS--12 Systems reviewed and otherwise negative Physical Exam Physical Exam: General- Not in distress. gonzalo/flushed facial appearance Head- atraumatic Neck- supple, no JVD. Lungs- clear to auscultation no wheezing or crackles. Heart- regular rhythm; no murmur, no gallop. Abdomen- normal bowel sounds, soft, nontender, no distension Extremities- no pretibial edema, no erythema seen Neuro- alert, oriented PERRL, ; no facial palsy; no dysarthria; moves extremities. Allergies Allergy/AdvReac Type Severity Reaction Status Date / Time Penicillins Allergy Hives Verified 10/19/23 00:33 Home Medications Medication Instructions Recorded Confirmed Type apixaban 5 mg tablet (Eliquis) 5 mg PO BID 10/19/23 10/19/23 History chlorthalidone 25 mg tablet 12.5 mg PO QAM 10/19/23 10/19/23 History fluoxetine 20 mg capsule 20 mg PO QAM 10/19/23 10/19/23 History lisinopril 40 mg tablet 40 mg PO DAILY 10/19/23 10/19/23 History metoprolol succinate 25 mg 12.5 mg PO HS 10/19/23 10/19/23 History tablet,extended release 24 hr omeprazole 20 mg capsule,delayed 20 mg PO DAILYBB 10/19/23 10/19/23 History release pravastatin 10 mg tablet 10 mg PO QAM 10/19/23 10/19/23 History sulfamethoxazole 800 1 tab PO BID 10/19/23 10/19/23 History mg-trimethoprim 160 mg tablet tamsulosin 0.4 mg capsule 0.4 mg PO QAM 10/19/23 10/19/23 History Patient History Medical History HTN (hypertension) Family History Other Heart disease Hypertension Social History Smoking Status: Current every day smoker Tobacco Type: Cigarettes Hx Alcohol Use: Yes Alcohol type: beer Hx Substance Use: No Preferred Language: Micronesian Communication Ability: Effective Numerologist Required: No Beliefs That Will Affect Care: None Current Living Situation: Spouse Other Information That Helps Us Care for You: No Feels Safe at Home: Yes Safety Concerns: Feels Safe At This Time Assistive Devices: None Results & Data Vital Signs (Past 12 Hours) Vital Signs Temp Pulse Pulse Resp BP Pulse Ox O2 Del Method 10/19/23 12:52 80 10/19/23 12:27 Room Air 10/19/23 10:09 36.9 C 74 20 138/71 97 Room Air 10/19/23 08:44 67 18 152/92 H 99 Room Air 10/19/23 07:25 60 10/19/23 06:18 60 18 167/85 H 95 Room Air 10/19/23 03:20 67 16 154/84 H 97 Room Air
--- OUTSIDE RECORDS SUMMARY | 2023-10-19 14:40 | External Medical Summary | Summary of Care ---
Author Name Unknown Organization [facility] Address [address] [facility] [place] [address] Phone [phone] Care Team Providers Care Customer Support Associate Name Role Phone Sam Clemente PA-C Primary Care Provide r Reason for Visit * Reason Onset Date Comments Referral 10/18/2023 Encounter Details Date Type Department Care Team (Late st Contact Info) Description 10/18/2023 Telephone [facility] [place] [address] [place] [phone] Hair Henderson PA-C [address] [place] [phone] Referral Allergies Active Allergy Reactions Criticality Noted Date Comments Penicillins Rash 05/19/2012 documented as of this encounter (statuses as of 10/18/2023) Medications Medication Sig Dispensed Refills Start Date End Date Status Misc. Devices MISC Custom Molded Orthotics 1 Each 10/23/2019 Active Tamsulosin HCl 0.4 MG Oral Capsule (Flomax)Indications:N octuria Take 1 Capsule by mouth in the morning. 90 Capsule 3 02/02/2023 Active Lisinopril 40 MG Oral TabletIndications:HTN , goal below 140/90 Take 1 Tablet by mouth in the morning. 90 Tablet 3 05/09/2023 Active Eliquis 5 MG Oral Tablet (Apixaban) TAKE ONE TABLET BY MOUTH TWICE DAILY 180 Tablet 08/01/2023 Active Pravastatin Sodium 10 MG Oral Tablet (Pravachol)Indication s:Mixed hyperlipidemia Take 1 Tablet by mouth in the morning. In the morning.. 90 Tablet 3 08/04/2023 Active ProAir HFA 108 (90 Base) MCG/ACT Inhalation Aerosol SolutionIndications:S OB (shortness of breath),Tobacco use disorder Inhale 2 Puffs by mouth every 4 hours as needed for Wheezing. 18 g 3 08/04/2023 Active Chlorthalidone 25 MG Oral Tablet (Hygroton) Take 0.5 Tablets by mouth in the morning. 45 Tablet 1 08/19/2023 Active FLUoxetine HCl 20 MG Oral Capsule (PROzac) Take 1 Capsule by mouth at bedtime. 30 Capsule 1 09/20/2023 Active Metoprolol Succinate ER 25 MG Oral Tablet Extended Release 24 Hour (toPROL XL) Take 0.5 Tablets by mouth at bedtime. 45 Tablet 3 09/20/2023 Active Omeprazole 20 MG Oral Capsule Delayed Release (PriLOSEC)Indications :GERD without esophagitis TAKE ONE CAPSULE BY MOUTH IN THE MORNING, one hour before the first meal of the day 30 Capsule 10/10/2023 Active Sulfamethoxazole-Trim ethoprim 800-160 MG Oral Tablet (Bactrim DS) Take 1 Tablet by mouth in the morning and 1 Tablet before bedtime. Do all this for 14 days. Until gone.. 28 Tablet 10/11/2023 10/25/2023 Active documented as of this encounter (statuses as of 10/18/2023) Active Problems Problem Noted Date Diagnosed Date BPH without obstruction/lower urinary tract symp toms 08/04/2023 Mixed hyperlipidemia 02/02/2023 Gastroesophageal reflux disease without esophagi tis 02/02/2023 Prediabetes 01/09/2021 History of pulmonary embolism 04/24/2019 History of DVT (deep vein thrombosis) 04/24/2019 Hereditary and idiopathic peripheral neuropathy 04/23/2019 Personal history of skin cancer 12/12/2014 Overview: Hx Basal Cell Carcinoma left shoulder HTN, goal below 140/90 05/19/2012 Tobacco use disorder 05/19/2012 documented as of this encounter (statuses as of 10/18/2023) Resolved Problems Problem Noted Date Diagnosed Date Resolved Date Elevated hemoglobin 07/15/2021 04/14/19 24 Personal history of alcoholism 07/13/2021 04/14/2023 Stage 2 chronic kidney disease 01/02/2021 07/10/2021 Loss of weight 01/02/2021 01/20/2022 Pulmonary embolism 10/17/2018 0 Acute deep vein thrombosis ( DVT) of left lower extremity 10/17/2018 04/24/2019 documented as of this encounter (statuses as of 10/18/2023) Immunizations Name Administration Dates Next Due TDAP (age 10 and older)(Boostrix) 09/17/2008 documented as of this encounter Social History Tobacco Use Types Packs/Day Years Used Date Smoking Tobacco: Every Day Cigarettes 1 35 Smokeless Tobacco: Never Comments:About 1/2 ppd as of 08/09/23 Alcohol Use Standard Drinks/Week Comments Yes 72 (1 standard drink = 0.6 oz pu re alcohol) avg 6pk+ per day AUDIT-C Answer Date Recorded Q1: How often do you have a drink containing alcohol? 4 or more times a week 09/13/2022 Q2: How many drinks containi ng alcohol do you have on a typical day when you are drinking? 7 to 9 Q3: How often do you have si x or more drinks on one occasion? Daily or almost daily 09/13/2022 PHQ-2 Answer Date Recorded PHQ Adult Total Score 0 08/04/2023 Hunger Vital Sign Answer Date Recorded Within the past 12 months, y ou worried that your food would run out before you got the money to buy more. Never true 09/14/19 23 Within the past 12 months, t he food you bought just didn't last and you didn't have money to get more. Never true 09/13/2022 Utilities Answer Date Recorded Do you have trouble paying y our heating, water, or electric bill? (Adult - for ages 18 years and over) Not on file 09/27/2023 Is your family able to pay t he heat, water, or electric bill? (Household - for ages 0-17 years) Not on file 09/27/2023 Does your family have access to good internet? (Household - for ages 0-17 years) Not on file 09/27/2023 Social Connections Answer Date Recorded How often do you feel lonely or isolated from those around you? (Adult - for ages 18 years and over) Not on file 09/27/2023 Sex and Gender Information Value Date Recorded Sex Assigned at Male 10/20/2018 10:42 AM EDT Gender Identity Male 10/20/2018 10:42 AM EDT Sexual Orientation Straight 10/20/2018 10 :42 AM EDT Job Start Date Occupation Industry Not on file Not on file Not on file documented as of this encounter Functional Status Functional Status Response Date of Assess ment Are you deaf or do you have serious difficulty h earing? No 10/17/2018 Are you blind or do you have serious difficulty seeing, even when wearing glasses? No 10/17/2018 Do you have serious difficul ty walking or climbing stairs? (5 years old or older) No 10/17/2018 Do you have difficulty dress ing or bathing? (5 years old or older) No 10/17/2018 Because of a physical, menta l, or emotional condition, do you have difficulty doing errands alone such as visiting a doctor s office or shopping? (15 years old or older) No 10/18/19 19 Cognitive Status Response Date of Assessm ent Because of a physical, menta l, or emotional condition, do you have serious difficulty concentrating, remembering, or making decisions? (5 years old or older) No 10/17/2018 documented as of this encounter Miscellaneous Notes * Addendum Note - Don Negro LPN - 10/18/2023 11:12 AM EDTAddended by: DON NEGRO on: 10/18/2023 11:12 AM Modules accepted: Orders * Telephone Encounter - Don Negro LPN - 10/18/2023 11:12 AM EDT Referral pended. * Telephone Encounter - Adriana Lorenz LPN - 10/18/2023 10:57 AM EDT Patient calling with continuation of symptoms as he had in office with provider Hair Henderson PA-C. This provider is not currently in clinic today. He is attempting to see urology in [facility] but no referral was placed. Can you please place a referral for patient to have continuation of care? Thank you! documented in this encounter Plan of Treatment Upcoming Encounters Date Type Department Care Team (Late st Contact Info) Description 11/16/2023 9:30 AM EDT Office Visit Cardiology, [place] [address] [place] [address] Tabitha Chauhan CRNP [address] [place] [address] 10/19/2024 9:00 AM EDT Office Visit [facility], [place] [address] [place] [phone] Sam Clemente PA-C [address] [place] [address] Scheduled Procedures Name Priority Associated Diagnoses Date/Ti me COLONOSCOPY FLEXIBLE PROXIMA L DIAGNOSTIC Recall Screening for colon cancer Health Maintenance Due Date Last Done Comments Pneumococcal Vaccine: Pediatrics (0 to 5 Years) and At-Risk Patients (6 to 64 Years) (1 of 2 - PCV) 1966 Cologuard 2005 Fecal Occult Blood Test 2005 Sigmoidoscopy 2005 Zoster Vaccines (1 of 2) 2010 DTaP,Tdap,and Td Vaccines (2 - Td or Tdap) 09/17/2018 09/17/2008 COVID-19 Vaccine (1 - season) 2022 *NEPHROLOGY REFERRAL DUE TO RESISTANT HTN 08/12/2023 Influenza Vaccine (FLU shot) (#1) 2023 HbA1c 07/20/2024 07/21/2023, 07/10, 07/14/2021, Additional history exists Depression Screening 08/03/2024 08/04/2023 GFR 08/31/2024 09/01/2023, 05/0 12/2023, 07/31/2023, Additional history exists Albumin/Creatinine Ratio 07/23/2025 07/23/2022 Lipid Panel 07/20/2028 07/21/2023, 07/10, 2021, Additional history exists Colonoscopy 03/19/2032 03/19/2022, 03/19/2022 Colorectal Cancer Screening 03/19/2032 Lung Cancer Screening Completed 12/13/2017 HPV (Gardasil) Vaccine Aged Out No lo nger eligible based on patient's age to complete this topic Hepatitis B Vaccine Aged Out No longe r eligible based on patient's age to complete this topic MENINGOCOCCAL (MENACTRA/MENVEO) Aged Out No longer eligible based on patient's age to complete this topic documented as of this encounter Medical Devices Not on filedocumented as of this encounter Advance Directives * Full Code (Latest Code Status on File) Date Activated Date Inactivated Comments 10/17/2018 7:16 PM 10/19/2018 4:24 PM This order re flects the patients wishes and were consensually agreed upon. Question Answer Comments Discussion of Advance Directives occurred with: Patient Care Teams Customer Support Associate Relationship Specialty Start Date End Date Sam Clemente PA-C [address] [place] [phone] PCP - General Physician Ethylene Plant Helper 02/02/23 documented as of this encounter
--- OUTSIDE RECORDS SUMMARY | 2023-10-19 14:40 | External Medical Summary | Summary of Care ---
Author Name Unknown Organization [facility] Address [address] [facility] [facility] [address] Phone [phone] Care Team Providers Care Rabbet Operator Name Role Phone Whitney Clemente PA-C Primary Care Provide r Reason for Referral * Evaluate & Treat - Unlimited Visits (Within 10 days (routine)) - Pending Review Specialty Diagnoses / Procedures Referred By Timi aguilar Referred To Contact Urology Diagnoses Dysuria Hair Henderson PA-C [address] [place] [phone] Referral ID Status Reason Start Date Expiration Date Visits Requested Visits Authorized [id number] Pending Review Specialty Services Required 10/18/[phone] Question Answer Referral Priority Within 10 days (routine) Where should this appointment be scheduled? [facility] What is the patient being referred for? Urinary Concerns Reason for Visit * Reason Onset Date Comments Referral 10/18/2023 Encounter Details Date Type Department Care Team (Late st Contact Info) Description [facility] [place] [address] [place] [phone] Hair Henderson PA-C [address] [place] [phone] Referral Allergies [...] Date Resolved Date Elevated hemoglobin 07/15/2021 04/14/19 Personal history of alcoholism 07/13/2021 04/14/2023 Stage [...] encounter Miscellaneous Notes * Addendum Note - Whitney Clemente PA-C - 10/18/2023 12:00 PM EDTAddended by: WHITNEY CLEMENTE on: 10/18/2023 12:00 PM Modules accepted: Orders * Telephone Encounter - Whitney Clemente PA-C - 10/18/2023 12:00 PM EDT Referral signed. * Addendum Note - Don Negro LPN [...] He is attempting to see urology in [facility] but no referral was placed. Can you please place a referral for patient to have continuation of care? Thank you! documented in this encounter Plan of Treatment Upcoming Encounters Date Type Department Care Team (Late st Contact Info) Description 11/16/2023 9:30 AM EDT Office Visit [place] [address] [place] [address] Tabitha Chauhan CRNP [address] [place] [address] 10/19/2024 9:00 AM EDT Office Visit Family Practice, [place] [address] [facility] [place] [address] Whitney Clemente PA-C [address] [facility] [place] [address] Scheduled Procedures Name Priority Associated Diagnoses Date/Ti me COLONOSCOPY FLEXIBLE PROXIMA L DIAGNOSTIC Recall Screening for colon cancer Scheduled Referrals Name Type Priority Associated Diagnoses Orde r Schedule ADULT/PEDS UROLOGY REFERRAL OP Referral Within 10 days (routine) Dysuria Ordered: 10/18/2023 Health Maintenance Due Date Last Done Comments Pneumococcal Vaccine: Pediatrics (0 to 5 Years) and At-Risk Patients (6 to 64 Years) (1 of 2 - PCV) 1966 Cologuard 2005 Fecal Occult Blood Test 2005 Sigmoidoscopy 2005 Zoster Vaccines (1 of 2) 2010 DTaP,Tdap,and Td Vaccines (2 - Td or Tdap) 09/17/2018 09/17/2008 COVID-19 Vaccine ( - 2022- season) 2022 *NEPHROLOGY REFERRAL DUE TO RESISTANT [...] Not on filedocumented as of this encounter Visit Diagnoses Diagnosis Dysuria- Primary documented in this encounter Advance Directives * Full Code (Latest Code Status on File) Date Activated Date Inactivated Comments 10/17/2018 7:16 PM 10/19/2018 4:24 PM This order re flects the patients wishes and were consensually agreed upon. Question Answer Comments Discussion of Advance Directives occurred with: Patient Care Teams Rabbet Operator Relationship Specialty Start Date End Date Whitney Clemente PA-C [address] [facility] [place] [phone] PCP - General Physician Purchasing Intern 02/02/23 documented as of this encounter
--- OUTSIDE RECORDS SUMMARY | 2023-10-19 14:40 | External Medical Summary | Summary of Care ---
Author Name Unknown Organization [facility] Address [address] [facility] [place] [address] Phone [phone] Care Team Providers Care Senior Design Engineering Specialist Name Role Phone Sam Clemente PA-C Primary Care Provide r Reason for Visit * Reason Onset Date Comments Referral 10/18/2023 Encounter Details Date Type Department Care Team (Late st Contact Info) Description 10/18/2023 Telephone [facility] [place] [address] [place] [phone] Hair Henderson PA-C [address] [place] [phone] Referral Allergies [...] He is attempting to see urology in [facility] but no referral was placed. Can you please place a referral for patient to have continuation of care? Thank you! documented in this encounter Plan of Treatment Upcoming Encounters Date Type Department Care Team (Late st Contact Info) Description 11/16/2023 9:30 AM EDT Office Visit Cardiology, [place] [address] [place] [address] Tabitha Chauhan CRNP [address] [place] [address] 10/19/2024 9:00 AM EDT Office Visit [facility], [place] [address] [place] [address] Sam Clemente PA-C [address] [place] [address] Scheduled Procedures Name Priority Associated Diagnoses Date/Ti [...] Advance Directives occurred with: Patient Care Teams Senior Design Engineering Specialist Relationship Specialty Start Date End Date Sam Clemente PA-C [address] [place] [phone] PCP - General Physician Assistant Child Care Teacher 02/02/23 documented as of this encounter
--- OUTSIDE RECORDS SUMMARY | 2023-10-19 14:40 | External Medical Summary | Summary of Care ---
Author Name Unknown Organization [facility] Address [address] [place] [address] Phone [phone] Care Team Providers Care Anthropology Professor Name Role Phone Whitney Clemente PA-C Primary Care Provide r Reason for Referral * Evaluate & Treat - Unlimited Visits (Within 10 days (routine)) - Pending Review Specialty Diagnoses / Procedures Referred By Timi aguilar Referred To Contact Urology Diagnoses Dysuria Hair Henderson PA-C [address] [place] [phone] Referral ID Status Reason Start Date Expiration Date Visits Requested Visits Authorized [id number] Pending Review Specialty Services Required 10/18/[phone] Question Answer Referral Priority Within 10 days (routine) Where should this appointment be scheduled? [facility] What is the patient being referred for? Urinary Concerns Reason for Visit * Reason Onset Date Comments Referral 10/18/2023 Encounter Details Date Type Department Care Team (Late st Contact Info) Description [facility] [place] [address] [place] [address] Hair Henderson PA-C [address] [place] [phone] Referral Allergies [...] He is attempting to see urology in [facility] but no referral was placed. Can you please place a referral for patient to have continuation of care? Thank you! documented in this encounter Plan of Treatment Upcoming Encounters Date Type Department Care Team (Late st Contact Info) Description 11/16/2023 9:30 AM EDT Office Visit [place] [address] [place] [address] Tabitha Chauhan CRNP [address] [place] [address] 10/19/2024 9:00 AM EDT Office Visit Family Practice, [place] [address] [facility] [place] [address] Whitney Clemente PA-C [address] [facility] [place] [address] Scheduled Procedures Name Priority Associated Diagnoses Date/Ti [...] Advance Directives occurred with: Patient Care Teams Anthropology Professor Relationship Specialty Start Date End Date Whitney Clemente PA-C [address] [facility] [place] [phone] PCP - General Physician Basin Cleaner 02/02/23 documented as of this encounter
--- OUTSIDE RECORDS SUMMARY | 2023-10-19 14:41 | External Medical Summary | Summary of Care ---
Author Name Unknown Organization [facility] Address [address] [facility] [place] [address] Phone [phone] Care Team Providers Care Flame Cutting Machine Operator Name Role Phone Sam Clemente PA-C Primary Care Provide r Reason for Visit * Reason Onset Date Comments Test Results 09/09/2023 Holter Encounter Details Date Type Department Care Team (Late st Contact Info) Description 09/09/2023 [facility] [address] [place] [address] Tabitha Chauhan CRNP [address] [facility] [place] [id number] Test Results (Holter) Allergies Active Allergy Reactions Criticality Noted Date Comments Penicillins Rash 05/19/2012 documented as of this encounter (statuses as of 09/09/2023) Medications Medication Sig Dispensed Refills Start Date End Date Status Misc. Devices MISC Custom Molded Orthotics 1 Each 10/23/2019 Active Omeprazole 20 MG Oral Capsule Delayed Release (PriLOSEC)Indications :GERD without esophagitis Take 1 capsule by mouth 60 minutes before the first meal of the day 30 Capsule 11 10/11/2022 Active Tamsulosin HCl 0.4 MG Oral Capsule [...] the morning. 45 Tablet 1 08/19/2023 Active documented as of this encounter (statuses as of 09/09/2023) Active Problems Problem Noted Date Diagnosed Date [...] as of this encounter (statuses as of 09/09/2023) Resolved Problems Problem Noted Date Diagnosed Date Resolved Date Elevated hemoglobin 07/15/2021 04/14/19 24 Personal history of alcoholism 07/13/2021 04/14/2023 Stage 2 chronic kidney disease 01/02/2021 07/10/2021 Loss of weight 01/02/2021 01/20/2022 Pulmonary embolism 10/17/2018 0 Acute deep vein thrombosis ( DVT) of left lower extremity 10/17/2018 04/24/2019 documented as of this encounter (statuses as of 09/09/2023) Immunizations Name Administration Dates Next Due TDAP [...] money to get more. Never true 09/13/2022 Sex and Gender Information Value Date Recorded [...] as of this encounter Miscellaneous Notes * Telephone Encounter - Kiesha Westbrook NRCMA - 09/09/2023 1:25 PM EDT Pt notified. Kiesha Lema. SILKE Westbrook * Telephone Encounter - Kiehsa Westbrook NRCMA - 09/09/2023 1:21 PM EDT ----- Message from Elizabeth Ervin sent at 09/09/2023 11:21 AM EDT ----- Results reviewed in coverage of Tabitha Chauhan Holter monitor unremarkable showing primarily sinus rhythm with an average heart rate of 96 beats per minute. Occasional PVCs with a 2% burden. Symptoms correlated with sinus rhythm and sinus tach. Keep follow-up as scheduled on 09/20/2023 to discuss results in detail. documented in this encounter Plan of Treatment Upcoming Encounters Date Type Department Care Team (Late st Contact Info) Description 09/13/2023 12:45 PM EDT [address] [address] 09/13/2023 2:00 PM EDT App[address]ment Vascular Lab, [address] [address] 09/20/2023 11:00 AM EDT [address]iology[address] [place] [address] Tabitha Chauhan CRNP [address] [place], [place] [address] [address] 11/15/2024 9:00 AM EDT Office Visit [facility] [address] [facility] [address] [place] [address] Sam Clemente PA-C [address] [facility] [address] [place] [address] Scheduled Procedures Name Priority Associated Diagnoses Date/Ti [...] RESISTANT HTN 08/12/2023 Influenza Vaccine (FLU shot) (Season Ended) 2023 HbA1c 07/20/2024 07/21/2023, 07/10, 07/14/2021, Additional history exists Depression Screening 08/03/2024 08/04/2023 GFR 08/31/2024 09/01/2023, 05/0 12/2023, 07/31/2023, Additional history exists Albumin/Creatinine Ratio 07/23/2025 07/23/2022 Lipid Panel 07/20/2028 07/21/2023, 07/10, 2021, Additional history exists Colonoscopy 03/19/2032 03/19/2022, 03/19/2022 Colorectal Cancer Screening 03/19/2032 Lung Cancer Screening Completed 12/13/2017 GARDASIL-HPV IMMUNIZATION SERIES Aged Out No longer eligible based on patient's age to complete this topic Hepatitis B Aged Out No longer eligi ble based on patient's age to complete this [...] Advance Directives occurred with: Patient Care Teams Flame Cutting Machine Operator Relationship Specialty Start Date End Date Sam Clemente PA-C [address] [facility] [place] [address] PCP - General Physician Leach Runner 02/02/23 documented as of this encounter
--- OUTSIDE RECORDS SUMMARY | 2023-10-19 14:41 | External Medical Summary | Summary of Care ---
Author Name Unknown Organization [facility] Address [address] [facility] [place] [address] Phone [phone] Care Team Providers Care Train Inspector Name Role Phone Sam Clemente PA-C Primary Care Provide r Reason for Visit * Reason Onset Date Comments Urinary Tract Infection Symptoms 10/10/2023 Encounter Details Date Type Department Care Team (Late st Contact Info) Description 10/10/2023 Telephone [facility], [place] [address] [facility] [place] [phone] Sam Clemente PA-C [address] [place] [phone] Urinary Tract Infection Symptoms Allergies Active Allergy Reactions Criticality Noted Date Comments Penicillins Rash 05/19/2012 documented as of this encounter (statuses as of 10/12/2023) Medications Medication Sig Dispensed Refills Start Date [...] of the day 30 Capsule 10/10/2023 Active documented as of this encounter (statuses as of 10/12/2023) Active Problems Problem Noted Date Diagnosed Date [...] as of this encounter (statuses as of 10/12/2023) Resolved Problems Problem Noted Date Diagnosed Date Resolved Date Elevated hemoglobin 07/15/2021 04/14/19 24 Personal history of alcoholism 07/13/2021 04/14/2023 Stage 2 chronic kidney disease 01/02/2021 07/10/2021 Loss of weight 01/02/2021 01/20/2022 Pulmonary embolism 10/17/2018 0 Acute deep vein thrombosis ( DVT) of left lower extremity 10/17/2018 04/24/2019 documented as of this encounter (statuses as of 10/12/2023) Immunizations Name Administration Dates Next Due TDAP [...] encounter Miscellaneous Notes * Telephone Encounter - Leela Ta CCMA - 10/12/2023 12:27 PM EDT Patient was seen at [facility] 10/11/2023 for uti symptoms * Telephone Encounter - Charlotte Moore OSA - 10/10/2023 7:09 PM EDT No Appointments Available Patient declined appointments?: No What Visit Type is needed? Return If Acute Visit Type is needed, were surrounding clinics offered to patient (Yes/No)? No, explain unavailable Was patient offered appointments with other available providers (Yes/No)? No, explain unavailable See Call Details? (Yes or No): Yes documented in this encounter Plan of Treatment Upcoming Encounters Date Type Department Care Team (Late st Contact Info) Description 11/16/2023 9:30 AM EDT Office Visit Cardiology, [place] [address] [place] [address] Tabitha Chauhan CRNP [address] [place] [address] 10/19/2024 9:00 AM EDT Office Visit [facility], [place] [address] [place] [address] Sam Clemente PA-C [address] [place] [address] Scheduled Procedures Name Priority Associated Diagnoses Date/Ti [...] Tdap) 09/17/2018 09/17/2008 COVID-19 Vaccine (1 - 2022- season) 2022 *NEPHROLOGY REFERRAL DUE [...] Advance Directives occurred with: Patient Care Teams Train Inspector Relationship Specialty Start Date End Date Sam Clemente PA-C [address] [place] [phone] PCP - General Physician Senior Software Manager 02/02/23 documented as of this encounter
--- OUTSIDE RECORDS SUMMARY | 2023-10-19 14:41 | External Medical Summary | Summary of Care ---
Author Name Unknown Organization [facility] Address [address] [facility] [facility] [address] Phone [phone] Care Team Providers Care Game Manager Name Role Phone Sam Clemente PA-C Primary Care Provide r Reason for Visit * Reason Onset Date Comments Test Results 09/14/2023 Encounter Details Date Type Department Care Team (Late st Contact Info) Description 09/14/2023 Telephone Cardiology, [place] [address] [place] [address] Tabitha Chauhan CRNP [address] [facility] [place] [address] Test Results Allergies Active Allergy Reactions Criticality Noted Date Comments Penicillins Rash 05/19/2012 documented as of this encounter (statuses as of 09/14/2023) Medications Medication Sig Dispensed Refills Start Date [...] as of this encounter (statuses as of 09/14/2023) Active Problems Problem Noted Date Diagnosed Date [...] as of this encounter (statuses as of 09/14/2023) Resolved Problems Problem Noted Date Diagnosed Date Resolved Date Elevated hemoglobin 07/15/2021 04/14/19 Personal history of alcoholism 07/13/2021 04/14/2023 Stage 2 chronic kidney disease 01/02/2021 07/10/2021 Loss of weight 01/02/2021 01/20/2022 Pulmonary embolism 10/17/2018 0 Acute deep vein thrombosis ( DVT) of left lower extremity 10/17/2018 04/24/2019 documented as of this encounter (statuses as of 09/14/2023) Immunizations Name Administration Dates Next Due TDAP (age 10 and older)(Boostrix) 09/17/2008 documented as of this encounter Social History Tobacco Use Types Packs/Day Years Used Date Smoking Tobacco: Every Day Cigarettes 1 35 Smokeless Tobacco: Never Comments:About 2 ppd as of 08/09/23 Alcohol Use Standard [...] when you are drinking? 7 to 9 3 Q3: How often do you have si [...] encounter Miscellaneous Notes * Telephone Encounter - Adriane Gupta LPN - 09/14/2023 11:12 AM EDT Patient advised of the provider's message. * Telephone Encounter - Adriane Gupta LPN - 09/14/2023 11:11 AM EDT ----- Message from Tabitha Chauhan sent at 09/14/2023 7:46 AM EDT ----- No evidence of renal artery stenosis. documented in this encounter Plan of Treatment Upcoming Encounters Date Type Department Care Team (Late st Contact Info) Description 09/20/2023 11:00 AM EDT [facility] [place] [address] [facility] [place] [address] Tabitha Chauhan CRNP [address] [place] [address] 11/15/2024 9:00 AM EDT Office Visit Family Practice, [place] [address] [facility] [place] [address] Sam Clemente PA-C [address] [facility] [phone] Scheduled Procedures Name Priority Associated Diagnoses Date/Ti [...] Tdap) 09/17/2018 09/17/2008 COVID-19 Vaccine ( - 2022-24 season) 2022 *NEPHROLOGY REFERRAL DUE TO RESISTANT [...] Advance Directives occurred with: Patient Care Teams Game Manager Relationship Specialty Start Date End Date Sam Clemente PA-C [address] [place] [phone] PCP - General Physician Blister Packaging Machine Operator 02/02/23 documented as of this encounter
--- OUTSIDE RECORDS SUMMARY | 2023-10-19 14:41 | External Medical Summary | Summary of Care ---
Author Name Unknown Organization [facility] Address [address] [place] [address] Phone [phone] Care Team Providers Care Time Lock Expert Name Role Phone Sam Clemente PA-C Primary Care Provide r Reason for Visit * Precert (Within 10 days (routine)) - Authorized Specialty Diagnoses / Procedures Referred By Contac t Referred To Contact Cardiac Studies Diagnoses HTN, goal below 130/80 Procedures ECHO, COMPLETE (2D), TRANS-THORACIC Tabitha Chauhan CRNP [address] [place] [address] Referral ID Status Reason Start Date Expiration Date V isits Requested Visits Authorized [id number] Authorized Precert 09/13/2023 10/22/[phone] Encounter Details Date Type Department Care Team (Latest Contact Info) Description 09/13/2023 12:39 PM EDT Hospital Encounter Cardiac Studies, [facility] [address] [place] [address] Discharge Disposition: Home - Self Care Allergies Active Allergy Reactions Criticality Noted Date [...] No 10/17/2018 documented as of this encounter Plan of Treatment Upcoming Encounters Date Type Department Care Team (Late st Contact Info) Description 09/20/2023 11:00 AM EDT Office Visit Cardiology, [place] [address] [place] [address] Tabitha Chauhan CRNP [address] [place] [address] 11/15/2024 9:00 AM EDT Office Visit [facility], [place] [address] [place] [address] Sam Clemente PA-C [address] [place] [address] Pending Results Name Type Priority Associated Diagnoses Date /Time ECHO, COMPLETE (2D), TRANS-THORACIC Echocardiology Routine HTN, goal below 130/80 09/13/2023 1:22 PM EDT Scheduled Procedures Name Priority Associated Diagnoses Date/Ti ny COLONOSCOPY FLEXIBLE PROXIMA L DIAGNOSTIC Recall Screening [...] as of this encounter Visit Diagnoses Diagnosis HTN, goal below 130/80 Unspecified essential hypertension documented in this encounter Advance Directives * Full Code (Latest Code Status on File) Date Activated Date Inactivated Comments 10/17/2018 7:16 PM 10/19/2018 4:24 PM This order re flects the patients wishes and were consensually agreed upon. Question Answer Comments Discussion of Advance Directives occurred with: Patient Care Teams Time Lock Expert Relationship Specialty Start Date End Date Sam Clemente PA-C [address] [place] [address] PCP - General Physician Insurance Consultant 02/02/23 documented as of this encounter
--- OUTSIDE RECORDS SUMMARY | 2023-10-19 14:41 | External Medical Summary | Summary of Care ---
Author Name Unknown Organization [facility] Address [address] [facility] [place] [address] Phone [phone] Care Team Providers Care Optical Advisor Name Role Phone Sam Clemente PA-C Primary Care Provide r Reason for Visit * Reason Onset Date Comments Test Results 10/12/2023 Encounter Details Date Type Department Care Team (Late st Contact Info) Description 10/12/2023 Telephone [facility] [place] [address] [place] [address] Patricia Hernandes PA-C [address] [facility] [address] [place] [address] Test Results Allergies Active Allergy Reactions Criticality Noted Date Comments Penicillins Rash 05/19/2012 documented as of this encounter (statuses as of 10/14/2023) Medications Medication Sig Dispensed Refills Start Date [...] as of this encounter (statuses as of 10/14/2023) Active Problems Problem Noted Date Diagnosed Date [...] as of this encounter (statuses as of 10/14/2023) Resolved Problems Problem Noted Date Diagnosed Date Resolved Date Elevated hemoglobin 07/15/2021 04/14/19 24 Personal history of alcoholism 07/13/2021 04/14/2023 Stage 2 chronic kidney disease 01/02/2021 07/10/2021 Loss of weight 01/02/2021 01/20/2022 Pulmonary embolism 10/17/2018 0 Acute deep vein thrombosis ( DVT) of left lower extremity 10/17/2018 04/24/2019 documented as of this encounter (statuses as of 10/14/2023) Immunizations Name Administration Dates Next Due TDAP [...] encounter Miscellaneous Notes * Telephone Encounter - Vanessa Mackey MED ASSIST - 10/14/2023 1:07 PM EDT I identified pt by name and , verified by patient. Pt has been informed of below message and verbalized understanding. * Telephone Encounter - Patricia Hernandes PA-C - 10/12/2023 5:13 PM EDT Urine culture was negative for a urinary tract infection. No bacteria grew in the urine culture. If you are still symptomatic, follow up with your primary care provider. Patricia Hernandes PA-C documented in this encounter Plan of Treatment Upcoming Encounters Date Type Department Care Team (Late st Contact Info) Description 11/16/2023 9:30 AM EDT Office Visit Cardiology, [place] [address] [place] [address] Tabitha Chauhan CRNP [address] [place] [address] 10/19/2024 9:00 AM EDT Office Visit [facility], [place] [address] [place] [address] Sam Clemente PA-C [address] [place] [address] Scheduled Procedures Name Priority Associated Diagnoses Date/Ti [...] Advance Directives occurred with: Patient Care Teams Optical Advisor Relationship Specialty Start Date End Date Sam Clemente PA-C [address] [place] [address] PCP - General Physician Wash Tank Tender 02/02/23 documented as of this encounter
--- OUTSIDE RECORDS SUMMARY | 2023-10-19 14:41 | External Medical Summary | Summary of Care ---
Author Name Unknown Organization [facility] Address [address] [facility] [place] [address] Phone [phone] Care Team Providers Care Mechanical Maintenance Engineer Name Role Phone Sam Clemente PA-C Primary Care Provide r Encounter Details Date Type Department Care Team (Latest Contact Info) Description 09/13/2023 12:40 PM EDT - 09/13/2023 11:59 PM EDT Hospital Encounter Vascular Lab, [facility] [address] [facility] [place] [phone] Arrived Discharge Disposition: Home - Self Care Allergies [...] as of this encounter Miscellaneous Notes * Result Encounter Note - Tabitha Chauhan CRNP - 09/13/2023 2:00 PM EDT No evidence of renal artery stenosis. * Result Encounter Note - Tabitha Chauhan CRNP - 09/13/2023 2:00 PM EDT No evidence of renal artery stenosis. documented in this encounter Plan of Treatment Upcoming Encounters Date Type Department Care Team (Late st Contact Info) Description 09/20/2023 11:00 AM EDT Office Visit Cardiology, [place] [address] [place] [address] Tab[facility]han CRNP [address] [facility] [place] [address] 11/15/2024 9:00 AM EDT Office Visit Family Practice, [place] [address] [place] [address] Sam Clemente PA-C [address] [place] [address] Scheduled Procedures Name Priority Associated Diagnoses Date/Ti [...] Not on filedocumented as of this encounter Procedures Procedure Name Priority Date/Time Associated Diagnosis Comments [facility] RENAL VASCULAR SCAN-COMPLETE Routine 09/13/2023 2:02 PM EDT HTN, goal below 130/80 documented in this encounter Results * [facility] RENAL VASCULAR SCAN-COMPLETE (09/13/2023 2:02 PM EDT) Anatomical Region Laterality Modality Abdomen, Vascular Ultrasound Narrative 09/13/2023 2:46 PM EDT VASCULAR LAB RESULTS DATE OF EXAMINATION: 09/13/23 INDICATION: htn RENAL ARTERY DUPLEX SCAN Immediately before proceeding with the vascular lab procedure reported below, the identity of the patient, the correct exam and the correct procedural site were verified. Goodwin scale, color flow and spectral doppler were performed for this examination. Duplex ultrasound demonstrates an aortic flow velocity of 92 centimeters per second. The right renal artery is visualized. The peak systolic velocities are 165, 131, 100 and 92 centimeters per second at the origin, proximal, mid and distal renal artery segments, respectively. The renal resistive index is 0.67. The ddhz-kv-fyis length of the right kidney measured 10.7 centimeters. The right renal-aortic ratio is 1.8. The right renal vein is visualized and demonstrates normal flow. The left renal artery is visualized. The peak systolic velocities are 98, 98, 143 and 154 centimeters per second at the origin, proximal, mid and distal renal artery segments, respectively. The renal resistive index is 0.74. The ghml-ir-hydl length of the left kidney measured 11.8 centimeters. The left renal-aortic ratio is 1.6. The left renal vein is visualized and demonstrates normal flow. CONCLUSIONS: On the right:: There is no evidence of hemodynamically significant renal artery stenosis. On the left: There is no evidence of hemodynamically significant renal artery stenosis. Tabitha Gissel [facility] documented in this encounter Visit Diagnoses Diagnosis HTN, goal below 130/80 Unspecified essential hypertension documented in this encounter Advance Directives * Full Code (Latest Code Status on File) Date Activated Date Inactivated Comments 10/17/2018 7:16 PM 10/19/2018 4:24 PM This order re flects the patients wishes and were consensually agreed upon. Question Answer Comments Discussion of Advance Directives occurred with: Patient Care Teams Mechanical Maintenance Engineer Relationship Specialty Start Date End Date Sam Clemente PA-C [address] [place] [phone] PCP - General Physician Buildings And Grounds Director 02/02/23 documented as of this encounter
--- OUTSIDE RECORDS SUMMARY | 2023-10-19 14:41 | External Medical Summary | Summary of Care ---
Author Name Unknown Organization [facility] Address [address] [facility] [place] [address] Phone [phone] Care Team Providers Care Rubber Goods Inspector Tester Name Role Phone Sam Clemente PA-C Primary Care Provide r Reason for Visit * Reason Comments New Problem C/O of right great i ngrown nail and thickened 2nd toe. Pt has stubbed both of these toes in the past and nails have grown like this since. Encounter Details Date Type Department Care Team (Late st Contact Info) Description 08/31/2023 1:00 PM EDT Office Visit Podiatry, [facility] [address] [place] [address] Mari Alaniz, [place] [address] [facility] [place] [id number] Onychomycosis* Allergies Active Allergy Reactions Criticality Noted Date Comments Penicillins Rash 05/19/2012 documented as of this encounter (statuses as of 08/31/2023) Medications Medication Sig Dispensed Refills Start Date [...] as of this encounter (statuses as of 08/31/2023) Active Problems Problem Noted Date Diagnosed Date [...] as of this encounter (statuses as of 08/31/2023) Resolved Problems Problem Noted Date Diagnosed Date Resolved Date Elevated hemoglobin 07/15/2021 04/14/19 24 Personal history of alcoholism 07/13/2021 04/14/2023 Stage 2 chronic kidney disease 01/02/2021 07/10/2021 Loss of weight 01/02/2021 01/20/2022 Pulmonary embolism 10/17/2018 0 Acute deep vein thrombosis ( DVT) of left lower extremity 10/17/2018 04/24/2019 documented as of this encounter (statuses as of 08/31/2023) Immunizations Name Administration Dates Next Due TDAP [...] No 10/17/2018 documented as of this encounter Progress Notes * Lor Baptiste DPM - 08/31/2023 1:20 PM EDT PODIATRY CLINIC NOTE Name: Luis Robledo Date: 08/31/2023 Time: 1:20 PM Subjective PRESENTING PROBLEM: painful nail R toes 1,2 HPI: Luis Robledo is a 62 year old male who presents to clinic for right foot painful toenails to toes 1 and 2. Patient relates he has a history significant for stubbing the toes 1 and 2, and relates he had a metal beam fall on them around 18 years ago, as the origin of the injury. Patient relates he currently smokes 1.5 PPD, and drank 6-8 beers a day until August when he was told to quit. Patient also has a history of blood clots as well as a significant cardiovascular profile. No further pedal complaints or constitutional illness. Patient Active Problem List Diagnosis HTN, goal below 140/90 Tobacco use disorder Personal history of skin cancer Hereditary and idiopathic peripheral neuropathy History of pulmonary embolism History of DVT (deep vein thrombosis) Prediabetes Mixed hyperlipidemia Gastroesophageal reflux disease without esophagitis BPH without obstruction/lower urinary tract symptoms PAST MEDICAL HISTORY: Past Medical History: Diagnosis Date Acute deep vein thrombosis (DVT) of left lower extremity (HCC) 10/17/2018 HTN, goal below 140/90 Tobacco use disorder Past Medical History - Pertinent Findings: As stated PAST SURGICAL HISTORY: Past Surgical History: Procedure Laterality Date COLONOSCOPY W/ BIOPSY (RECTUM) N/A 03/19/2022 diverticulosis sigmoid colon/recall 10 years/COLONOSCOPY FLEXIBLE WITH BIOPSY performed by Rani Rea DO at [facility]COPY [facility] FAMILY HISTORY: Family History Problem Relation Name Age of Onset Hypertension Mother Diabetes Mother No Past Hx Other unaware of fam hx of skin ca, melanoma, or skin dz Family History - Pertinent Findings: As stated SOCIAL HISTORY: Social History Tobacco Use Smoking status: Every Day Current packs/day: 1.00 Average packs/day: 1 pack/day for 35.0 years (35.0 ttl pk-yrs) Types: Cigarettes Smokeless tobacco: Never Tobacco comments: About 1/2 ppd as of 08/09/23 Vaping Use Vaping status: Never Used Substance Use Topics Alcohol use: Yes Alcohol/week: 72.0 standard drinks of alcohol Types: 72 12 oz of beer per week Comment: avg 6pk+ per day Drug use: Yes Types: Marijuana CURRENT MEDICATIONS: Note that discontinued continue to display for 24 hours. Ordered medications to be given in the future also display. Current Outpatient Medications Medication Sig Dispense Refill Misc. Devices MISC Custom Molded Orthotics 1 Each 0 Omeprazole 20 MG Oral Capsule Delayed Release (PriLOSEC) Take 1 capsule by mouth 60 minutes before the first meal of the day 30 Capsule 11 Tamsulosin HCl 0.4 MG Oral Capsule (Flomax) Take 1 Capsule by mouth in the morning. 90 Capsule 3 Lisinopril 40 MG Oral Tablet Take 1 Tablet by mouth in the morning. 90 Tablet 3 Eliquis 5 MG Oral Tablet (Apixaban) TAKE ONE TABLET BY MOUTH TWICE DAILY 180 Tablet 0 Pravastatin Sodium 10 MG Oral Tablet (Pravachol) Take 1 Tablet by mouth in the morning. In the morning.. 90 Tablet 3 ProAir HFA 108 (90 Base) MCG/ACT Inhalation Aerosol Solution Inhale 2 Puffs by mouth every 4 hours as needed for Wheezing. 18 g 3 Chlorthalidone 25 MG Oral Tablet (Hygroton) Take 0.5 Tablets by mouth in the morning. 45 Tablet 1 No current facility-administered medications for this visit. ALLERGIES: Penicillins REVIEW OF SYSTEMS: A complete review of systems was negative unless otherwise stated in the HPI. Objective PHYSICAL EXAMINATION: Most Recent Vital Signs: There were no vitals taken for this visit. LOWER EXTREMITY PHYSICAL EXAM: VASC: DP pulses palpable to BL lower extremities. PT pulses 2/4 to BL extremities. KETTLE CHIPPER is brisk to all digits of BL lower extremities . Pedal hair is absent to BL lower extremities. Temperature gradient is warm to warm from proximal tibia to foot of BL lower extremities. (+) varicosities to BL lower extremities. NEURO: Protective sensation is diminished to BL lower extremities. Light touch sensation is diminished to BL lower extremities. Gross motor function is intact to BL lower extremities. MMT is 5/5 in all planes of BL lower extremities. ORTHO: Ankle ROM is intact to R lower extremities, with (-) pain. Digital ROM is diminished to R lower extremities, with (-) pain. (-) POP to proximal R calf muscle(s). 1st MTPJ ROM diminished to R lower extremities. Mild hallux limitus noted to RLE with decreased dorsal-plantar excursion. Pain to dorsal aspects oftoes 1 and 2 of the right lower extremity. No pain to posterior calves to BLLE. DERM: Skin color, turgor, and texture are unremarkable.(-) open lesions to R lower extremities. (-)signs of infection, including purulence, bogginess, malodor, or fluctuance to R lower extremities. (-) edema to R lower extremities. (-) erythema to R lower extremities. (-) skin lesions present to Rlower extremities. Incurvated pincer nails to toes 1 and 2 of the right lower extremity with thickened, elongated, dystrophic nails with significant subungal debris. No signs of interdigital maceration noted to webspaces. Mild malodor noted to nails of digits 1 and 2 of the right foot. LABS/MICRODATA: Labs reviewed as indicated below: n/a IMAGING/STUDIES: Reviewed. See comments below. No orders to display IMPRESSION and PLAN: Luis Robledo is a 62 year old male who presents to clinic for painful nails to toes 1 and 2 of the right foot. Nails were sharply palliated with a nail nipper to reduce pathologic bulk. Findings noted as above. A culture of nails from the right foot was taken for analysis. Patient will be contacted. Follow up as needed Pt was evaluated and treated by Dr. Alaniz with all questions and concerns addressed. Clinical exam performed, as above. Vitals, labs, and imaging reviewed, as above. Patient will follow up in clinic as needed. This note was completed using the dictation program Fluency Direct. As such, there may be misspellings, word substitutions, or other variations that should not change the essence of the clinical content of this encounter note. Necessary attempts were made to correct dictation errors. If there is need for further clarification, please direct questions to the author. I have discussed the patient's management with the medical trainee and agree with the note. Please refer to the documented findings and plan of care. This patient's visit today consisted of an evaluation and procedure. I was present and confirmed the findings of the history and exam, and was present for the rose and critical portions of the procedure. Nail trimmed. Cx obtained. Discussed treatmentof the toe nail would be dependent on the cx results. Medications such as PO vs topical Rx. Will call with results. Mari Alaniz DPM documented in this encounter Nursing Notes * Adriane Fair LPN - 08/31/2023 1:00 PM EDT Chief Complaint Patient presents with New Problem C/O of right great ingrown nail and thickened 2nd toe. Pt has stubbed both of these toes in the past and nails have grown like this since. Patient was instructed to not get up on the exam table/exam chair until directed and assisted by their provider; patient is to remain seated in the chair/ wheelchair/ exam table/ exam chair for fall prevention and safety reasons. Patient is aware to have assistance to step down off exam table/exam chair with personnel. Patient voiced full comprehension of instructions. documented in this encounter Plan of Treatment Upcoming Encounters Date Type Department Care Team (Late st Contact Info) Description 09/13/2023 12:45 PM EDT Appointment Cardiac Studies, [address] [place] [address] 09/13/2023 2:00 PM EDT Appointment Vascular Lab, [address] [place] [address] 09/20/2023 11:00 AM EDT Office Visit Cardiology, [address] [place] [address] [facility]ith[facility]han CR[facility] [address] [facility] [place] [address] 11/15/2024 9:00 AM EDT Office Visit [facility] [place] [address] [facility] [place] [address] Sam Clemente PA-C [address] [place] [address] Scheduled Orders Name Type Priority Associated Diagnoses Orde r Schedule CULTURE, FUNGUS, DERM Lab Routine Onychomycosis Expected: 08/31/2023, Expires: 01/01/2024 Scheduled Procedures Name Priority Associated Diagnoses Date/Ti [...] Tdap) 09/17/2018 09/17/2008 COVID-19 Vaccine ( - season) 2022 *NEPHROLOGY REFERRAL DUE TO RESISTANT HTN 08/12/2023 Influenza Vaccine (FLU shot) (Season Ended) 2023 HbA1c 07/20/2024 07/21/2023, 07/10, 07/14/2021, Additional history exists Depression Screening 08/03/2024 08/04/2023 GFR 08/17/2024 08/18/2023, 07/11, 07/21/2023, Additional history exists Albumin/Creatinine Ratio 07/23/2025 07/23/2022 [...] as of this encounter Visit Diagnoses Diagnosis Onychomycosis- Primary Dermatophytosis of nail documented in this encounter Advance Directives * Full Code (Latest Code Status on File) Date Activated Date Inactivated Comments 10/17/2018 7:16 PM 10/19/2018 4:24 PM This order re flects the patients wishes and were consensually agreed upon. Question Answer Comments Discussion of Advance Directives occurred with: Patient Care Teams Rubber Goods Inspector Tester Relationship Specialty Start Date End Date Sam Clemente PA-C [address] [place] [address] PCP - General Physician Circular Saw Edge Fuser 02/02/23 documented as of this encounter
--- OUTSIDE RECORDS SUMMARY | 2023-10-19 14:41 | External Medical Summary | Summary of Care ---
Author Name Unknown Organization [facility] Address [address] [facility] [place] [address] Phone [phone] Care Team Providers Care Breaker Layer Name Role Phone Sam Clemente PA-C Primary Care Provide r Reason for Visit * Reason Comments Outpatient Testing Encounter Details Date Type Department Care Team (Late st Contact Info) Description 09/01/2023 8:30 AM EDT Laboratory [facility], [address] [place] [address] [place] [id number] Hyponatremia Allergies Active Allergy Reactions Criticality Noted Date Comments Penicillins Rash 05/19/2012 documented as of this encounter (statuses as of 09/01/2023) Medications Medication Sig Dispensed Refills Start Date [...] as of this encounter (statuses as of 09/01/2023) Active Problems Problem Noted Date Diagnosed Date [...] as of this encounter (statuses as of 09/01/2023) Resolved Problems Problem Noted Date Diagnosed Date Resolved Date Elevated hemoglobin 07/15/2021 04/14/19 24 Personal history of alcoholism 07/13/2021 04/14/2023 Stage 2 chronic kidney disease 01/02/2021 07/10/2021 Loss of weight 01/02/2021 01/20/2022 Pulmonary embolism 10/17/2018 0 Acute deep vein thrombosis ( DVT) of left lower extremity 10/17/2018 04/24/2019 documented as of this encounter (statuses as of 09/01/2023) Immunizations Name Administration Dates Next Due TDAP [...] 09/13/2023 12:45 PM EDT Appointment Cardiac Studies, [address] [place] [address] 09/13/2023 2:00 PM EDT Appointment Vascular Lab, [address] [place] [address] 09/20/2023 11:00 AM EDT Office Visit Cardiology, [address] [place] [address] [facility]han CRNP [address] [facility] [address] 11/15/2024 9:00 AM EDT Office Visit [facility] [address] [facility] [place] [address] Sam Clemente PA-C [address] [place] [address] Pending Results Name Type Priority Associated Diagnoses Date /Time BASIC METABOLIC PANEL Lab Routine Hyponatremia 09/01/2023 8:28 AM EDT Scheduled Procedures Name Priority Associated Diagnoses [...] as of this encounter Visit Diagnoses Diagnosis Hyponatremia Hyposmolality and/or hyponatremia documented in this encounter Advance Directives * Full Code (Latest Code Status on File) Date Activated Date Inactivated Comments 10/17/2018 7:16 PM 10/19/2018 4:24 PM This order re flects the patients wishes and were consensually agreed upon. Question Answer Comments Discussion of Advance Directives occurred with: Patient Care Teams Breaker Layer Relationship Specialty Start Date End Date Sam Clemente PA-C [address] [place] [address] PCP - General Physician Casting Repairer 02/02/23 documented as of this encounter
--- OUTSIDE RECORDS SUMMARY | 2023-10-19 14:41 | External Medical Summary ---
Author Name Unknown Address Unknown Organization [id number]:[facility] [place] [address] [place] [address] Laboratory Report Ordering Provider Test Date Status BRIE MCBRIDE 09/01/2023 08:28:24 Final Observation Date Value Abnormality Reference (Units ) Status BUN 09/01/2023 08:28:24 20 6-20 (mg/dL) Final Creatinine 09/01/2023 08:28:24 1.0 0.6-1.2 (mg/dL) Final Glomerular filtration rate/1.73 sq M.predicted [Volume Rate/Area] in Serum, Plasma or Blood by Creatinine-based formula (CKD-EPI) 09/01/2023 08:28:24 88 >=60 (mL/min) Final eGFR is calculated based on the CKD-EPI 2020 equation Sodium 09/01/2023 08:28:24 136 135-146 (m mol/L) Final Potassium 09/01/2023 08:28:24 4.5 3.5-5.1 (m mol/L) Final Cl 09/01/2023 08:28:24 99 98-107 (mm ol/L) Final CO2 09/01/2023 08:28:24 27 22-32 (mmo l/L) Final Anion gap 09/01/2023 08:28:24 10 7-15 (mmol /L) Final Glucose 09/01/2023 08:28:24 122 Above high normal 70 -120 (mg/dL) Final Calcium 09/01/2023 08:28:24 9.6 8.4-10.2 ( mg/dL) Final Performing Location [facility] [place] [address] [place] [address]
--- OUTSIDE RECORDS SUMMARY | 2023-10-19 14:41 | External Medical Summary | Summary of Care ---
Author Name Unknown Organization [facility] Address [address] [facility] [place] [address] Phone [phone] Care Team Providers Care Director Of Occupational Therapy Name Role Phone Sam Clemente PA-C Primary Care Provide r Encounter Details Date Type Department Care Team (Latest Contact Info) Description 09/06/2023 11:06 AM EDT - 09/06/2023 11:59 PM EDT Hospital Encounter Cardiac Studies, [facility] [address] [facility] [place] [address] Glh, Plumbing Inspector [address] [facility] [place] [address] Discharge Disposition: Home - Self Care Allergies Active Allergy Reactions Criticality Noted Date Comments Penicillins Rash 05/19/2012 documented as of this encounter (statuses as of 09/07/2023) Medications Medication Sig Dispensed Refills Start Date [...] as of this encounter (statuses as of 09/07/2023) Active Problems Problem Noted Date Diagnosed Date [...] as of this encounter (statuses as of 09/07/2023) Resolved Problems Problem Noted Date Diagnosed Date Resolved Date Elevated hemoglobin 07/15/2021 04/14/19 24 Personal history of alcoholism 07/13/2021 04/14/2023 Stage 2 chronic kidney disease 01/02/2021 07/10/2021 Loss of weight 01/02/2021 01/20/2022 Pulmonary embolism 10/17/2018 0 Acute deep vein thrombosis ( DVT) of left lower extremity 10/17/2018 04/24/2019 documented as of this encounter (statuses as of 09/07/2023) Immunizations Name Administration Dates Next Due TDAP [...] 09/13/2023 12:45 PM EDT Appointment Cardiac Studies, [address] [place] [address] 09/13/2023 2:00 PM EDT Appointment Vascular Lab, [address] [place] [address] 09/20/2023 11:00 AM EDT Office Visit Cardiology, [address] [place] [address] Tabitha Chauhan CRNP [address] [facility] [place] [address] 11/15/2024 9:00 AM EDT [facility] [address] [facility] [place] [address] Sam Clemente PA-C [address] [place] [address] Scheduled Procedures Name Priority Associated Diagnoses Date/Ti [...] as of this encounter Visit Diagnoses Diagnosis Tachycardia Tachycardia, unspecified documented in this encounter Advance Directives * Full Code (Latest Code Status on File) Date Activated Date Inactivated Comments 10/17/2018 7:16 PM 10/19/2018 4:24 PM This order re flects the patients wishes and were consensually agreed upon. Question Answer Comments Discussion of Advance Directives occurred with: Patient Care Teams Director Of Occupational Therapy Relationship Specialty Start Date End Date Sam Clemente PA-C [address] [place] [address] PCP - General Physician Knife Grinder 02/02/23 documented as of this encounter
--- OUTSIDE RECORDS SUMMARY | 2023-10-19 14:41 | External Medical Summary | Summary of Care ---
Author Name Unknown Organization [facility] Address [address] [address] Phone [phone] Care Team Providers Care Sql Developer Dba Name Role Phone Sam Clemente PA-C Primary Care Provide r Reason for Visit * Reason Comments Follow Up Encounter Details Date Type Department Care Team (Late st Contact Info) Description 09/20/2023 11:00 AM EDT [facility] [address] [place] [phone] Tabitha Chauhan CRNP [address] [facility] [place] [phone] HTN, goal below 130/80*; Hyponatremia; ETOH abuse; Palpitations; Tobacco use; Anxiety Allergies Active Allergy Reactions Criticality Noted Date Comments Penicillins Rash 05/19/2012 documented as of this encounter (statuses as of 09/20/2023) Medications Medication Sig Dispensed Refills Start Date [...] at bedtime. 45 Tablet 3 09/20/2023 Active documented as of this encounter (statuses as of 09/20/2023) Active Problems Problem Noted Date Diagnosed Date [...] as of this encounter (statuses as of 09/20/2023) Resolved Problems Problem Noted Date Diagnosed Date Resolved Date Elevated hemoglobin 07/15/2021 04/14/19 24 Personal history of alcoholism 07/13/2021 04/14/2023 Stage 2 chronic kidney disease 01/02/2021 07/10/2021 Loss of weight 01/02/2021 01/20/2022 Pulmonary embolism 10/17/2018 0 Acute deep vein thrombosis ( DVT) of left lower extremity 10/17/2018 04/24/2019 documented as of this encounter (statuses as of 09/20/2023) Immunizations Name Administration Dates Next Due TDAP [...] on file documented as of this encounter Last Filed Vital Signs Vital Sign Reading Time Taken Comments Blood Pressure 143/84 09/20/2023 11:04 AM EDT Pulse 95 09/20/2023 11:04 AM EDT Temperature - - Respiratory Rate - - Oxygen Saturation - - Inhaled Oxygen Concentration - - Weight 91.2 kg (201 lb) 09/20/2023 11:04 AM EDT Height - - Body Mass Index 28.03 08/09/2023 11:27 AM EDT documented in this encounter Functional Status Functional Status Response [...] No 10/17/2018 documented as of this encounter Patient Instructions * Patient Instructions* Tabitha Chauhan CRNP - 09/20/2023 11:20 AM EDT Start Prozac 20 mg at bedtime. This is for your anxiety/mood. This takes at least 4-6 weeks to take effect. Start Metoprolol Succinate 12.5 mg at bedtime. You need a new blood pressure cuff. Do not get a wrist cuff. Omron is a great band. documented in this encounter Progress Notes * Tabitha Chauhan CRNP - 09/20/2023 11:06 AM EDT 09/20/2023 Cardiology Follow Up Primary Electrical Designer: DANII Cardiac Problems: Hypertension Hyperlipidemia Hx PE -on Eliquis Tobacco Use ETOH Abuse Hyponatremia HPI: Luis Robledo is a 62 year old male was last seen in the office on 08/08 as a new patient for evaluation of chest pressure. Here for Cardiology follow up. No longer on Bystolic. Reports palpitations at times. Denies chest pain. Reports a lot of stress in his life. Lives at home with his and step son. His step son is 26 yo and is autistic. He is struggling with anxiety/mood. Denies SI/HI. He is considering moving out of his home, but is not an easy decision. States he did not tolerate Wellbutrin. Chronic shortness of breath that seems to be at baseline. Smoking 1-1.5 PPD. States he is trying to quit and is maybe down to .5 PPD. Drinks 6-8 beer per day. This has been for many years. Home and office BP do not match. His home cuff is +20 pts higher. Home BP's 119-140/70-80s. Endorses headaches. Denies excessive NSAID use. Denies a diet high in sodium. Denies OTC cough/cold medications. REVIEW OF SYSTEMS: See HPI for pertinent positives. All others negative other than those noted in the HPI. CONSTITUTIONAL: No change in weight, No weakness, No fatigue and No fevers, No sweats or chills. +headaches PULMONARY: No cough, sputum, or hemoptysis, No wheezing, No shortness or breath and No recent change in breathing. CARDIOVASCULAR: No chest pain, No dyspnea on exertion, No edema, No palpitations and No syncope. GASTROINTESTINAL: No abdominal pain, No change in bowel habits, No significant heartburn, No nausea, No vomiting, No diarrhea, No constipation, No blood in stools or black tarry stools. No dysphagia. HEMATOLOGIC: No abnormal bleeding and No bruising. NEUROLOGICAL: Normal balance, No headaches and No weakness. Review of patient's allergies indicates: Allergen Reactions Penicillins Rash Current Outpatient Medications Medication Sig Dispense Refill Omeprazole 20 MG Oral Capsule Delayed Release [...] morning. In the morning.. 90 Tablet 3 Chlorthalidone 25 MG Oral Tablet (Hygroton) Take 0.5 Tablets by mouth in the morning. 45 Tablet 1 FLUoxetine HCl 20 MG Oral Capsule (PROzac) Take 1 Capsule by mouth at bedtime. 30 Capsule 1 Metoprolol Succinate ER 25 MG Oral Tablet Extended Release 24 Hour (toPROL XL) Take 0.5 Tablets by mouth at bedtime. 45 Tablet 3 Misc. Devices MISC Custom Molded Orthotics 1 Each 0 ProAir HFA 108 (90 Base) MCG/ACT Inhalation Aerosol Solution Inhale 2 Puffs by mouth every 4 hours as needed for Wheezing. 18 g 3 No current facility-administered medications for this visit. Past Medical History: Diagnosis Date Acute deep vein thrombosis (DVT) of left lower extremity (HCC) 10/17/2018 HTN, goal below 140/90 Tobacco use disorder Family History Problem Relation Name Age of Onset Hypertension Mother Diabetes Mother No Past Hx Other unaware of fam hx of skin ca, melanoma, or skin dz Social History Socioeconomic History Marital status: Tobacco Use Smoking status: Every Day Current packs/day: 1.00 Average packs/day: 1 pack/day for 35.0 years (35.0 ttl pk-yrs) Types: Cigarettes Smokeless tobacco: Never Tobacco comments: About 1/2 ppd as of 08/09/23 Vaping Use Vaping status: Never Used Substance and Sexual Activity Alcohol use: Yes Alcohol/week: 72.0 standard drinks of alcohol Types: 72 12 oz of beer per week Comment: avg 6pk+ per day Drug use: Yes Types: Marijuana Social Determinants of Health Food Insecurity: No Food Insecurity (09/13/2022) Hunger Vital Sign Worried About Running Out of Food in the Last Year: Never true Ran Out of Food in the Last Year: Never true OBJECTIVE/PHYSICAL EXAMINATION: BP 143/84 | Pulse 95 | Wt 91.2 kg (201 lb) | BMI 28.03 kg/m | BSA 2.14 m General: No acute distress. A+Ox3. HEENT: Normocephalic. Atraumatic. PERRL. EOMI. Conjunctiva and sclera clear. NECK: No carotid bruits. No JVD. Carotid upstrokes are brisk. Heart: RRR. S1 and S2 noted. No murmur. No rubs or gallops. PMI non displaced. Lungs: Clear to auscultation. No wheezes.No rhonchi. No rales. Abdomen: Normal bowel sounds. Soft. Nontender. No masses or organomegaly. No abdominal bruits. Extremities: No edema. No clubbing or cyanosis. Pulses: radial=2/4, posterior tibial=2/4, dorsalis pedis = 2/4. NEURO: No focal deficits. PSYCH: Appropriate affect and insight. DATA Labs & Imaging Reviewed Below: Echo 09/13/2023 Calculated LV ejection Fraction = 59% (three dimensional volumes). The left ventricular diastolic function is mildly abnormal (grade I). Non-dilated cardiac chambers. Trace mitral regurgitation. Trivial tricuspid regurgitation is present. The signal is inadequate to calculate pulmonary artery systolic pressure. The aortic root is borderline enlarged. Indeterminate IVC size and collapsability. Right atrial pressure estimated at 8 mmHg. Trivial tricuspid regurgitation is present. The signal is inadequate to calculate pulmonary artery systolic pressure EKG 07/31/2023 NSR 64 bpm LVH ASSESSMENT/PLAN: 62 year old year old male 1. HTN, goal below 130/80 2. Hyponatremia BP above goal today. Home BP monitor did not correlate with the office. Instructed to purchase a new BP cuff. States he is taking all of his medications. -Echocardiogram was unremarkable. No evidence of renal artery stenosis. -Continue Lisinopril 40 mg daily. -Continue Chlorthalidone 12.5 mg daily -Need to monitor his sodium level given his history of hyponatremia -Consider adding Amlodipine if needed in the future. -Consider sleep medicine referral in the future. 3. ETOH abuse -Drinking 6-8 beers/day. 4. Palpitations -Holter monitor unremarkable showing primarily sinus rhythm with an average heart rate of 96 beats per minute. Occasional PVCs with a 2% burden. Symptoms correlated with sinus rhythm and sinus tach. -Bystolic was weaned off at our last visit. Heart rates were low at that time. He also needed better blood pressure control. -Has struggled with Coreg, Metoprolol Tartrate, and Atenolol in the past. Will trial Metoprolol Succinate 12.5 mg at bedtime. 5. Tobacco use -Smoking 1-1.5 PPD -Discussed/Counseled patient on the ill effects of smoking, which may include cardiovascular disease, cerebrovascular disease, peripheral arterial disease, COPD, lung cancer etc. The patient was advised and encouraged to quit smoking completely. Different options for successful cessation of tobaccouse were also discussed with the patient. Patient is not interested in smoking cessation at this time. 6. Anxiety -Significant stress at home. Denies SI/HI. Did not feel well on Wellbutrin. -Start Prozac 20 mg at bedtime. -Patient was educated on the potential side effects of Prozac. Patient voices understanding. All questions were answered and they wish to proceed. -Plan to follow up with PCP in 4-6 weeks. DISPOSITION: Follow up in 8 weeks or if symptoms worsen/fail to improve. All questions were answered to the patients satisfaction. Patient advised to report to ED with any and all emergencies. The patient agrees to the above plan and will call with additional questions or concerns. MARY Powell [address] [address] I spent a total of 40 minutes on the date of service in preparation, delivery, and documentation ofthe care provided to Luis Robledo excluding any time spent in the performance of separately billed services. This chart was completed in part utilizing [employer] Speech Voice Recognition Software. Grammatical errors, random word insertions, pronoun errors, and incomplete sentences are an occasional consequence of this system due to software limitations, ambient noise, and hardware issues. Any formal questions or concerns about the content, text, or information contained within the body of this dictation should be directly addressed to the provider for clarification. documented in this encounter Nursing Notes * Adriane Gupta LPN - 09/20/2023 11:02 AM EDT Patient was identified by name and date of . Name: Luis Robledo Date of : (1960). Examination Room: 2 Reason for Visit: Chief Complaint Patient presents with Follow Up Home monitor- 163/95 Office monitor- 143/84 Interim Hospitalization(s): NO Interim Emergency room visit(s): NO Current symptoms: SOB Medications reviewed and are up to date via: Patient's memory Would you like to sign up for [facility]? decline Patient was instructed to not get up on the exam table/exam chair until directed and assisted by their provider; patient is to remain seated in the chair/ wheelchair/ exam table/ exam chair for fall prevention and safety reasons. Patient is aware to have assistance to step down off exam table/exam chair with personnel. Patient voiced full comprehension of instructions. Adriane Gupta LPN 11:02 AM 09/20/2023 documented in this encounter Plan of Treatment Upcoming Encounters Date Type Department Care Team (Late st Contact Info) Description 11/16/2023 9:30 AM EDT Office Visit Cardiology, [place] [address] [place] [id number] Tabitha Chauhan CRNP [address] [place] [id number] 10/19/2024 9:00 AM EDT Office Visit [facility] [place], [place] [address] [place] [address] Sam Clemente PA-C [address] [place] [address] Scheduled Procedures Name Priority Associated Diagnoses Date/Ti [...] encounter Visit Diagnoses Diagnosis HTN, goal below 130/80- Primary Unspecified essential hypertension Hyponatremia Hyposmolality and/or hyponatremia ETOH abuse Alcohol abuse, unspecified Palpitations Tobacco use Tobacco use disorder Anxiety Anxiety state, unspecified documented in this encounter Advance Directives * Full Code (Latest Code Status on File) Date Activated Date Inactivated Comments 10/17/2018 7:16 PM 10/19/2018 4:24 PM This order re flects the patients wishes and were consensually agreed upon. Question Answer Comments Discussion of Advance Directives occurred with: Patient Care Teams Sql Developer Dba Relationship Specialty Start Date End Date Sam Clemente PA-C [address] [place] [address] PCP - General Physician Lobbyist 02/02/23 documented as of this encounter"
--- OUTSIDE RECORDS SUMMARY | 2023-10-19 14:41 | External Medical Summary | Summary of Care ---
Author Name Unknown Organization [facility] Address [address] [facility] [place] [address] Phone [phone] Care Team Providers Care Kitchen Food Assembler Name Role Phone Sam Clemente PA-C Primary Care Provide r Reason for Visit * Reason Comments Urinary Tract Infection Symptoms Encounter Details Date Type Department Care Team (Late st Contact Info) Description 10/11/2023 11:20 AM EDT Conven[facility] [place] [email or web address] [place] [id number] Hair Henderson PA-C [address] [place] [phone] UTI symptoms* Allergies Active Allergy Reactions Criticality Noted Date Comments Penicillins Rash 05/19/2012 documented as of this encounter (statuses as of 10/11/2023) Medications Medication Sig Dispensed Refills Start Date [...] as of this encounter (statuses as of 10/11/2023) Active Problems Problem Noted Date Diagnosed Date [...] as of this encounter (statuses as of 10/11/2023) Resolved Problems Problem Noted Date Diagnosed Date Resolved Date Elevated hemoglobin 07/15/2021 04/14/19 24 Personal history of alcoholism 07/13/2021 04/14/2023 Stage 2 chronic kidney disease 01/02/2021 07/10/2021 Loss of weight 01/02/2021 01/20/2022 Pulmonary embolism 10/17/2018 0 Acute deep vein thrombosis ( DVT) of left lower extremity 10/17/2018 04/24/2019 documented as of this encounter (statuses as of 10/11/2023) Immunizations Name Administration Dates Next Due TDAP (age 10 and older)(Boostrix) 09/17/2008 documented as of this encounter Social History Tobacco Use Types Packs/Day Years Used Date Smoking Tobacco: Every Day Cigarettes 1 35 Smokeless Tobacco: Never Tobacco Cessation:Ready to Q uit: Not Asked; Counseling Given: Not Answered Comments:About 1/2 ppd as of 08/09/23 Alcohol [...] Sign Reading Time Taken Comments Blood Pressure 158/82 10/11/2023 10:55 AM EDT Pulse 63 10/11/2023 10:55 AM EDT Temperature 36.5 C (97.7 F) 10/11/2023 10:55 AM E DT Respiratory Rate 15 10/11/2023 10:55 AM EDT Oxygen Saturation 98% 10/11/2023 10:55 AM EDT Inhaled Oxygen Concentration - - Weight 90.8 kg (200 lb 3.2 oz) 10/11/2023 10:55 AM EDT Height 180.3 cm (5' 11") 10/11/2023 10:55 AM EDT Body Mass Index 27.92 10/11/2023 10:55 AM EDT documented in this encounter Functional [...] this encounter Patient Instructions * Patient Instructions* Hair Henderson PA-C - 10/11/2023 11:25 AM EDT Prostatitis most likely Fluids, rest Go to ER if worsening or no better in 4-5 days documented in this encounter Progress Notes * Hair Henderson PA-C - 10/11/2023 11:04 AM EDT Images from the original note were not included. History of Present Illness Luis Robledo is a 62 year old male that presents for Urinary Tract Infection Symptoms 3 d of slight dysuria, hesitancy, weak stream- was nauseated yesterday- no fever- no back pain- feels like when he had prostatitis back in April- tx w 14 dys of bactrim then- decliens abbie for now Urinary Tract Infection Symptoms This is a new problem. The current episode started in the past 7 days. The problem occurs every urination. The problem has been unchanged. The quality of the pain is described as burning. The pain isat a severity of 1/10. The pain is mild. There has been no fever. Associated symptoms include frequency, hesitancy and urgency. Pertinent negatives include no flank pain. He has tried nothing for thesymptoms. The treatment provided no relief. There is no history of recurrent UTIs. Physical Exam Vitals: 10/11/23 1055 Temp: 36.5 C (97.7 F) Pulse: 63 Resp: 15 SpO2: 98% BP: 158/82 BMI: 27.93 Physical Exam Constitutional: Appearance: Normal appearance. HENT: Head: Normocephalic and atraumatic. Cardiovascular: Rate and Rhythm: Normal rate and regular rhythm. Heart sounds: Normal heart sounds. Pulmonary: Effort: Pulmonary effort is normal. Breath sounds: Normal breath sounds. Abdominal: General: Abdomen is flat. Bowel sounds are normal. There is no distension. Palpations: Abdomen is soft. Tenderness: There is no abdominal tenderness. There is no right CVA tenderness, left CVA tendernessor guarding. Neurological: Mental Status: He is alert. I have reviewed the following results: UA small blood Assessment and Plan UTI symptoms (Primary) - URINALYSIS, POINT OF CARE (ENTER/EDIT) - CULTURE, URINE, QUANTITATIVE; Future; Expected date: 10/12/2023 - CULTURE, URINE, QUANTITATIVE Other orders - Sulfamethoxazole-Trimethoprim 800-160 MG Oral Tablet (Bactrim DS); Take 1 Tablet by mouth in the morning and 1 Tablet before bedtime. Do all this for 14 days. Until gone.. Follow Up: Return if symptoms worsen or fail to improve. Prostatitis most likely Fluids, rest Go to ER if worsening or no better in 4-5 days Wrap-Up Follow Up: Return if symptoms worsen or fail to improve. Time: I spent a total of 10-19 minutes (exact time 15 mins) on the date of service in preparation, delivery, and documentation of the care provided to Luis Robledo excluding any time spent in the performance of separately billed services. documented in this encounter Nursing Notes * Trevin Burton MED ASSIST - 10/11/2023 10:50 AM EDT Luis Robledo is a 62 year old male who presents to walk-in clinic today complaining of Chief Complaint Patient presents with Urinary Tract Infection Symptoms Brief history:Pt presents with enlarged prostate and states slight burning when peeing and burning in prostate area. Pt also states he struggles to urinate. Onset/duration 3x days ago. Tried N/A Effectiveness N/A Patient is accompanied by self for today's visit. documented in this encounter Plan of Treatment Upcoming Encounters Date Type Department Care Team (Late st Contact Info) Description 11/16/2023 9:30 AM EDT Office Visit [place]iology, [place] [address] [place] [address] Tabitha Chauhan CRNP [address] [place] [phone] 10/19/2024 9:00 AM EDT Office Visit [facility] [place] [address] [facility] [place] [address] Sam Clemente PA-C [address] [facility] [place] [address] Pending Results Name Type Priority Associated Diagnoses Date /Time CULTURE, URINE, QUANTITATIVE Lab Routine UTI symptoms 10/11/2023 11:20 AM EDT Scheduled Orders Name Type Priority Associated Diagnoses Orde r Schedule CULTURE, URINE, QUANTITATIVE Lab Routine UTI symptoms Expected: 10/12/2023, Expires: 10/10/2024 Scheduled Procedures Name Priority Associated Diagnoses Date/Ti [...] Procedure Name Priority Date/Time Associated Diagnosis Comments URINALYSIS, POINT OF CARE (ENTER/EDIT) Routine 10/11/2023 11:19 AM EDT UTI symptoms documented in this encounter Results * URINALYSIS, POINT OF CARE (ENTER/EDIT) (10/11/2023 11:19 AM EDT) Color, Urine Yellow Yellow or Light Yellow Clarity, Urine Clear Clear Glucose, Urine Negative Negative mg/dL Bilirubin, Urine Negative Negative Ketone, Urine Negative Negative mg/dL Specific [place], Urine 1.015 1.003 - 1.030 Blood, Urine Small Negative pH, Urine 7.0 5.0 - 7.5 units Protein, Urine Negative Negative mg/dL Urobilinogen, Urine 0.2 0.2 - 1.0 mg/dL Nitrite, Urine Negative Negative Esterase, Urine Negative Negative Urine 10/11/2023 11:1 9 AM EDT Hair Henderson PA-C LAB POINT OF CAR E TEST ENTER/EDIT ORDERABLES documented in this encounter Visit Diagnoses Diagnosis UTI symptoms- Primary Other symptoms involving urinary system documented in this encounter Advance Directives * Full Code (Latest Code Status on File) Date Activated Date Inactivated Comments 10/17/2018 7:16 PM 10/19/2018 4:24 PM This order re flects the patients wishes and were consensually agreed upon. Question Answer Comments Discussion of Advance Directives occurred with: Patient Care Teams Kitchen Food Assembler Relationship Specialty Start Date End Date Sam Clemente PA-C [address] [place] [address] PCP - General Physician Clearing Supervisor 02/02/23 documented as of this encounter
--- OUTSIDE RECORDS SUMMARY | 2023-10-19 14:41 | External Medical Summary | Summary of Care ---
Author Name Unknown Organization [facility] Address [address] [facility] [place] [address] Phone [phone] Care Team Providers Care Complaint Supervisor Name Role Phone Whitney Clemente PA-C Primary Care Provide r Reason for Visit * Reason Comments eRx-Medication Refill Encounter Details Date Type Department Care Team (Late st Contact Info) Description 10/09/2023 Refill [facility], [place] [address] [facility] [place] [address] Whitney Clemente PA-C [address] [facility] [place] [address] GERD without esophagitis Allergies Active Allergy Reactions Criticality Noted Date Comments Penicillins Rash 05/19/2012 documented as of this encounter (statuses as of 10/10/2023) Medications Medication Sig Dispensed Refills Start Date End Date Status [facility]. Devices MIS Custom Molded Orthotics 1 Each 10/23/2019 Active Tamsulosin HCl 0.4 MG Oral Capsule (Flomax)Indications :Nocturia Take 1 Capsule by mouth in the morning. 90 Capsule 3 02/02/2023 Active Lisinopril 40 MG Oral TabletIndications:H TN, goal below 140/90 Take 1 Tablet by mouth in the morning. 90 Tablet 3 05/09/2023 Active Eliquis 5 MG Oral Tablet (Apixaban) TAKE ONE TABLET BY MOUTH TWICE DAILY 180 Tablet 08/01/2023 Active Pravastatin Sodium 10 MG Oral Tablet (Pravachol)Indicati ons:Mixed hyperlipidemia Take 1 Tablet by mouth in the morning. In the morning.. 90 Tablet 3 08/04/2023 Active ProAir HFA 108 (90 Base) MCG/ACT Inhalation Aerosol SolutionIndications :SOB (shortness of breath),Tobacco use disorder Inhale 2 [...] Omeprazole 20 MG Oral Capsule Delayed Release (PriLOSEC)Indicatio ns:GERD without esophagitis TAKE ONE CAPSULE BY MOUTH IN THE MORNING, one hour before the first meal of the day 30 Capsule 10/10/2023 Active Omeprazole 20 MG Oral Capsule Delayed Release (PriLOSEC)Indicatio ns:GERD without esophagitis Take 1 capsule by mouth 60 minutes before the first meal of the day 30 Capsule 11 10/11/2022 10/10/19 24 Discontinued documented as of this encounter (statuses as of 10/10/2023) Active Problems Problem Noted Date Diagnosed Date [...] as of this encounter (statuses as of 10/10/2023) Resolved Problems Problem Noted Date Diagnosed Date Resolved Date Elevated hemoglobin 07/15/2021 04/14/19 24 Personal history of alcoholism 07/13/2021 04/14/2023 Stage 2 chronic kidney disease 01/02/2021 07/10/2021 Loss of weight 01/02/2021 01/20/2022 Pulmonary embolism 10/17/2018 0 Acute deep vein thrombosis ( DVT) of left lower extremity 10/17/2018 04/24/2019 documented as of this encounter (statuses as of 10/10/2023) Immunizations Name Administration Dates Next Due TDAP [...] encounter Miscellaneous Notes * Telephone Encounter - Whitney Clemente PA-C - 10/10/2023 1:11 PM EDT Signed Prescriptions: Disp Refills Omeprazole 20 MG Oral Capsule Delayed Rele*30 Cap*0 Sig: TAKE ONE CAPSULE BY MOUTH IN THE MORNING, one hour before the first meal of the day Authorizing Provider: WHITNEY CLEMENTE * Telephone Encounter - Delonte Caicedo LPN - 10/10/2023 10:42 AM EDTPending Prescriptions: Disp Refills Omeprazole 20 MG Oral Capsule Delayed Rele*30 Cap*0 Sig: TAKE ONE CAPSULE BY MOUTH IN THE MORNING, one hour before the first meal of the day * Telephone Encounter - Delonte Caicedo LPN - 10/10/2023 10:42 AM EDT Did you pend patient's preferred pharmacy and medication before forwarding?yes Pharmacy: [id number] [place] [address] Pending Prescriptions: Disp Refills Omeprazole 20 MG Oral Capsule Delayed Rel*30 Cap*0 Sig: TAKE ONE CAPSULE BY MOUTH IN THE MORNING, one hour before the first meal of the day Last Visit: 08/04/2023 (in office), Visit date not found (telemedicine) Next Visit: Visit date not found If no future appointments scheduled, and last appointment is greater than a year ago, please schedule patient for a follow-up appointment Last date the medication was ordered: 10/11/22 Is this request for a controlled substance?No Urine Drug Screen:No results found for this or any previous visit. Patient Phone Numbers mobile [phone] Labs: Lab Results Component Value Date/Time CREAT 1.0 09/01/2023 08:28 AM CREAT 0.88 01/21/2022 12:00 AM CREAT 1.0 03/20/2019 02:42 PM POTASSIUM 4.5 09/01/2023 08:28 AM POTASSIUM 4.0 01/21/2022 12:00 AM POTASSIUM 4.3 03/20/2019 02:42 PM TSH 2.22 10/19/2018 09:21 AM LDLCALC 90 07/21/2023 08:16 AM LDLCALC 113 03/20/2019 02:42 PM LDLDIRECT 80 01/07/2021 02:10 PM ALT 35 07/31/2023 04:01 PM ALT 35 03/20/2019 02:42 PM HGBA1C 5.9 (H) 07/21/2023 08:16 AM documented in this encounter Plan of Treatment Upcoming Encounters Date Type Department Care Team (Late st Contact Info) Description 11/16/2023 9:30 AM EDT Office Visit Cardiology, [place] [address] [place] [phone] Tabitha Chauhan CRNP [address] [place] [address] 10/19/2024 9:00 AM EDT Office Visit Family [facility], [place] [address] [facility] [address] [place] [address] Whitney Clemente PA-C [address] [place] [address] Scheduled Procedures Name Priority Associated Diagnoses Date/Ti [...] as of this encounter Visit Diagnoses Diagnosis GERD without esophagitis Esophageal reflux documented in this encounter Advance Directives * Full Code (Latest Code Status on File) Date Activated Date Inactivated Comments 10/17/2018 7:16 PM 10/19/2018 4:24 PM This order re flects the patients wishes and were consensually agreed upon. Question Answer Comments Discussion of Advance Directives occurred with: Patient Care Teams Complaint Supervisor Relationship Specialty Start Date End Date Whitney Clemente PA-C [address] [facility] [address] [place] [phone] PCP - General Physician Underpresser Hand 02/02/23 documented as of this encounter
--- OUTSIDE RECORDS SUMMARY | 2023-10-19 14:41 | External Medical Summary ---
Author Name Unknown Address Unknown Organization K01:[facility] [place] [address] [place] [id number] Laboratory Report Ordering Provider Test Date Status IZABELLA GAMINO 10/11/2023 11:20:12 Final Observation Date Value Abnormality Reference (Units) Status Bacteria identified in Specimen by Culture 10/11/2023 11:20:12 No significant growth Final Test: Culture, Urine, Quant itative
Specimen Source: Urine, Clean Catch
Specimen Type: Urine
Specimen Date: 10/11/2023 1120
Result Date: 10/12/2023 1428
Result Status: Final result
Resulting Lab: [facility]
[address]
[place] [address]

CULTURE

No significant growth

null Performing Location [facility] [place] [address] [facility] [address]
--- OUTSIDE RECORDS SUMMARY | 2023-10-19 14:41 | External Medical Summary | Summary of Care ---
Author Name Unknown Organization [facility] Address [address] [facility] [place] [address] Phone [phone] Care Team Providers Care Supervisor Force Adjustment Name Role Phone Sam Clemente PA-C Primary Care Provide r Reason for Visit * Reason Onset Date Comments Appointment 09/02/2023 Holter needs yimi eduled. Encounter Details Date Type Department Care Team (Late st Contact Info) Description 09/02/2023 Telephone [facility] [address] [place] [address] Tabitha Chauhan CRNP [address] [facility] [place] [address] Appointment (Holter needs scheduled.) Allergies Active Allergy Reactions Criticality Noted Date [...] Telephone Encounter - Kiesha Westbrook NRCMA - 09/02/2023 4:03 PM EDT Scheduling can you please contact pt to schedule? Thanks. SILKE Rodriguez * Telephone Encounter - Tabitha Chauhan CRNP - 09/02/2023 1:18 PM EDT Lets do a 48 hour Holter Monitor. * Telephone Encounter - Kiesha Westbrook NRCMA - 09/02/2023 12:51 PM EDT Pt notified. He states that his HR are in the "one-teens" pretty often. Pt advised to check vitals AT REST and as instructed previously. Please advise, if any further instructions. Otherwise pt will call if HR worsens. SILKE Fishman * Telephone Encounter - Kiesha Westbrook NRCMA - 09/02/2023 12:47 PM EDT ----- Message from Tabitha Chauhan sent at 09/02/2023 7:42 AM EDT ----- Kidney function and electrolytes are normal * Telephone Encounter - Tabitha Chauhan CRNP - 09/02/2023 10:32 AM EDT BP log reviewed. Lets continue current medications. Keep monitoring BP at home. Record 1-2 hours after taking medications. Bring log to our appt on 09/19. MARY oPwell documented in this encounter Plan of Treatment Upcoming Encounters Date Type Department Care Team (Late st Contact Info) Description 09/13/2023 12:45 PM EDT [address] Studies[address] [place] [address] 09/13/2023 2:00 PM EDT Appointment Vascular Lab, [address] [place] [address] 09/20/2023 11:00 AM EDT Office Visit Cardiology, [address] [place] [address] Tab[facility] [place] [address] 11/15/2024 9:00 AM EDT [facility] [place] [address] Sam Clemente PA-C [address] [place] [address] Scheduled Orders Name Type Priority Associated Diagnoses Orde r Schedule HOLTER HOOK-UP (COMM PRAC) Holter Routine Tachycardia Expected: 09/02/2023, Expires: 09/01/2024 Scheduled Procedures Name Priority Associated Diagnoses Date/Ti [...] as of this encounter Visit Diagnoses Diagnosis Tachycardia- Primary Tachycardia, unspecified documented in this encounter Advance Directives * Full Code (Latest Code Status on File) Date Activated Date Inactivated Comments 10/17/2018 7:16 PM 10/19/2018 4:24 PM This order re flects the patients wishes and were consensually agreed upon. Question Answer Comments Discussion of Advance Directives occurred with: Patient Care Teams Supervisor Force Adjustment Relationship Specialty Start Date End Date Sam Clemente PA-C [address] [facility] [address] [place] [address] PCP - General Physician Tso 02/02/23 documented as of this encounter
--- OUTSIDE RECORDS SUMMARY | 2023-10-19 14:41 | External Medical Summary | Summary of Care ---
Author Name Unknown Organization [facility] Address [address] [facility] [address] Phone [phone] Care Team Providers Care Signal Tester Name Role Phone Sam Clemente PA-C Primary Care Provide r Reason for Visit * Reason Onset Date Comments Test Results 09/15/2023 Echo Encounter Details Date Type Department Care Team (Late st Contact Info) Description 09/15/2023 [facility] [address] [place] [address] Tabitha Chauhan CRNP [address] [facility] [place] [address] Test Results (Echo) Allergies Active Allergy Reactions Criticality Noted Date Comments Penicillins Rash 05/19/2012 documented as of this encounter (statuses as of 09/15/2023) Medications Medication Sig Dispensed Refills Start Date [...] as of this encounter (statuses as of 09/15/2023) Active Problems Problem Noted Date Diagnosed Date [...] as of this encounter (statuses as of 09/15/2023) Resolved Problems Problem Noted Date Diagnosed Date Resolved Date Elevated hemoglobin 07/15/2021 04/14/19 Personal history of alcoholism 07/13/2021 04/14/2023 Stage 2 chronic kidney disease 01/02/2021 07/10/2021 Loss of weight 01/02/2021 01/20/2022 Pulmonary embolism 10/17/2018 0 Acute deep vein thrombosis ( DVT) of left lower extremity 10/17/2018 04/24/2019 documented as of this encounter (statuses as of 09/15/2023) Immunizations Name Administration Dates Next Due TDAP [...] encounter Miscellaneous Notes * Telephone Encounter - Meixel, Kiesha L, NRCMA - 09/15/2023 2:30 PM EDT Pt notified. SILKE Fishman * Telephone Encounter - Kiesha Westbrook NRCMA - 09/15/2023 2:27 PM EDT ----- Message from Tabitha Chauhan sent at 09/15/2023 12:46 PM EDT ----- Normal pumping function. No significant valvular abnormalities. No LVH or WMA. documented in this encounter Plan of Treatment Upcoming Encounters Date Type Department Care Team (Late st Contact Info) Description 09/20/2023 11:00 AM EDT [facility] [place] [address] [facility] [place] [address] Tabitha Chauhan CR[facility] 400 [place] [address] 11/15/2024 9:00 AM EDT Office Visit [facility] [address] [place] [address] Sam Clemente PA-C [address] [facility] [place] [address] Scheduled Procedures Name Priority Associated Diagnoses Date/Ti [...] or Tdap) 09/17/2018 09/17/2008 COVID-19 Vaccine ( season) 2022 *NEPHROLOGY REFERRAL DUE TO RESISTANT [...] Advance Directives occurred with: Patient Care Teams Signal Tester Relationship Specialty Start Date End Date Sam Clemente PA-C [address] [facility] [place] [phone] PCP - General Physician Director Search 02/02/23 documented as of this encounter
--- OUTSIDE RECORDS SUMMARY | 2023-10-19 14:42 | External Medical Summary | Summary of Care ---
Author Name Unknown Organization [facility] Address [address] [facility] [place] [address] Phone [phone] Care Team Providers Care Paper Reeler Name Role Phone Sam Clemente PA-C Primary Care Provide r Reason for Referral * Evaluate & Treat - Unlimited Visits (Within 3 days (urgent)) - Pending Review Specialty Diagnoses / Procedures Referred By Contact Referred To Contact Cardiovascular Medicine / Cardiology Diagnoses Chest pressure Portillo Leon MD [address] [place] [address] Referral ID Status Reason Start Date Expiration Date Visits Requested Visits Authorized [id number] Pending Review Specialty Services Required 07/31/[phone] Question Answer Referral Priority Within 3 days (urgent) Where should this appointment be scheduled? [facility] To which of the following clinics are you referring your patient? General Cardiology Clinic Comments Discharge Order Reason for Visit * Reason Comments Dizziness Chest Pain * Auth/Cert Specialty Diagnoses / Procedures Referred By Contac t Referred To Contact [facility] [address] [place] [address] Phone: [phone] Emergency Medicine [facility] [address] [place] [address] Referral ID Status Reason Start Date Expiration Date Visits Re quested Visits Authorized [id number] Encounter Details Date Type Department Care Team (Late st Contact Info) Description 07/31/2023 3:01 PM EDT - 07/31/2023 8:09 PM EDT Emergency [facility] [address] [facility] [place] [address] Steffany Andrews, DO [address] [facility] [place] [address] Shant Yadav, DO [address] [facility] [address] Chest pressure (Primary Dx) Discharge Disposition: Home - Self Care Allergies Active Allergy Reactions Criticality Noted Date Comments Penicillins Rash 05/19/2012 documented as of this encounter (statuses as of 08/01/2023) Medications Medication Sig Dispensed Refills Start Date End Date Status Misc. Devices MISC Custom Molded Orthotics 1 Each 0 10/23/2019 Active Eliquis 5 MG Oral Tablet (Apixaban) TAKE ONE TABLET BY MOUTH TWICE DAILY 180 Tablet 3 07/17/2022 Active Pravastatin Sodium 10 MG Oral Tablet (Pravachol) TAKE ONE TABLET BY MOUTH EVERY DAY IN THE MORNING. 90 Tablet 3 08/13/2022 Active hydroCHLOROthiazide 25 MG Oral Tablet (Hydrodiuril)Indicat ions:HTN, goal below 140/90 TAKE ONE TABLET BY MOUTH ONCE DAILY 90 Tablet 3 08/13/2022 Active Omeprazole 20 MG Oral Capsule Delayed Release (PriLOSEC)Indication s:GERD without esophagitis Take 1 capsule by mouth 60 minutes before the first meal of the day 30 Capsule 11 10/11/2022 Active Tamsulosin HCl 0.4 MG Oral Capsule (Flomax)Indications: Nocturia Take 1 Capsule by mouth in the morning. 90 Capsule 3 02/02/2023 Active Nebivolol HCl 20 MG Oral Tablet (Bystolic)Indication s:HTN, goal below 140/90 Take 0.5 Tablets by mouth in the morning and 0.5 Tablets before bedtime. 90 Tablet 1 02/16/2023 Active Lisinopril 40 MG Oral TabletIndications:HT N, goal below 140/90 Take 1 Tablet by mouth in the morning. 90 Tablet 3 05/09/2023 Active documented as of this encounter (statuses as of 08/01/2023) Active Problems Problem Noted Date Diagnosed Date Mixed hyperlipidemia 02/02/2023 Gastroesophageal reflux disease without esophagi tis 02/02/2023 Prediabetes 01/09/2021 History of pulmonary embolism 04/24/2019 History of DVT (deep vein thrombosis) 04/24/2019 Hereditary and idiopathic peripheral neuropathy 04/23/2019 Personal history of skin cancer 12/12/2014 Overview: Hx Basal Cell Carcinoma left shoulder HTN, goal below 140/90 05/19/2012 Tobacco use disorder 05/19/2012 documented as of this encounter (statuses as of 08/01/2023) Resolved Problems Problem Noted Date Diagnosed Date Resolved Date Elevated hemoglobin 07/15/2021 04/14/19 24 Personal history of alcoholism 07/13/2021 04/14/2023 Stage 2 chronic kidney disease 01/02/2021 07/10/2021 Loss of weight 01/02/2021 01/20/2022 Pulmonary embolism 10/17/2018 0 Acute deep vein thrombosis ( DVT) of left lower extremity 10/17/2018 04/24/2019 documented as of this encounter (statuses as of 08/01/2023) Immunizations Name Administration Dates Next Due TDAP (age 10 and older)(Boostrix) 09/17/2008 documented as of this encounter Social History Tobacco Use Types Packs/Day Years Used Date Smoking Tobacco: Every Day Cigarettes 1 35 Smokeless Tobacco: Never Alcohol Use Standard Drinks/Week Comments Yes 72 (1 standard drink = 0.6 oz pure alcohol) Admits to 6, 10 on /weekend day Beer only AUDIT-C Answer Date Recorded Q1: How often [...] Answer Date Recorded PHQ Adult Total Score 1 07/16/2022 Hunger Vital Sign Answer Date Recorded Within [...] Sign Reading Time Taken Comments Blood Pressure 114/87 07/31/2023 8:00 PM EDT Pulse 57 07/31/2023 8:00 PM EDT Temperature 36.3 C (97.3 F) 07/31/2023 3:02 PM ED T Respiratory Rate 18 07/31/2023 8:00 PM EDT Oxygen Saturation 98% 07/31/2023 5:07 PM EDT Inhaled Oxygen Concentration - - Weight 92.1 kg (203 lb) 07/31/2023 3:02 PM EDT Height 180.3 cm (5' 11") 07/31/2023 3:02 PM EDT Body Mass Index 28.31 07/31/2023 3:02 PM EDT documented in this encounter Functional Status [...] No 10/17/2018 documented as of this encounter Discharge Instructions * Discharge Instructions* Portillo Leon MD - 07/31/2023 8:04 PM EDT You were evaluated in the Emergency Department today for chest pain/ dizziness. A cardiology referral has been placed, please follow-up for further evaluation. Return to the Emergency Department if you experience worsening or uncontrolled chest pain, shortness of breath, light headedness, feeling faint, nausea, vomiting, or any other concerning symptoms.Seek immediate medical care if your symptoms worsen or if you experience any new unexplained symptoms. documented in this encounter ED Notes * Cherelle Vasquez RN - 07/31/2023 3:04 PM EDT ALS report: pt here from home with c/o dizziness, lightheadedness, and L-sided chest pressure starting after he got home from running errands and laid down. Initial Bps 190s systolic for EMS. Given two nitro and BP did decrease to 160s SBP for EMS. Pt denies SOB with this. Denies diaphoresis or n/vwith episode. On eliquis for hx DVT and PE. Aox4. Pre-hospital blood glucose 110. Reports mild dizziness remains. documented in this encounter Miscellaneous Notes * Pt Handout (on AVS) - Portillo Leon MD - 07/31/2023 7:59 PM EDT Images from the original note were not included. [id number] Uncertain Causes of Chest Pain Chest pain can happen for a number of reasons. Sometimes the cause can't be determined. If your condition does not seem serious, and your pain does not appear to be coming from your heart, your healthcare provider may recommend watching it closely. Sometimes the signs of a serious problem take moretime to appear. Many problems not related to your heart can cause chest pain. These include: Musculoskeletal. Costochondritis is an inflammation of the tissues around the ribs that can occur from trauma or overuse injuries, or a strain of the muscles of the chest wall. Respiratory. Pneumonia, collapsed lung (pneumothorax), or inflammation of the lining of the chest and lungs (pleurisy). Gastrointestinal. Esophageal reflux, heartburn, ulcers, or gallbladder disease. Anxiety and panic disorders Nerve compression and inflammation Rare problems such as aortic aneurysm or aortic dissection (a swelling of the large artery coming out of the heart or a tear in the wall of the artery), or pulmonary embolism (a blood clot in the lungs). Home care After your visit, follow these recommendations: Rest today and avoid strenuous activity. Take any prescribed medicine as directed. Be aware of any recurrent chest pain and notice any changes Follow-up care Follow up with your healthcare provider if you don't start to feel better within 24 hours, or as advised. Call 911 Call 911 if any of these occur: A change in the type of pain: if it feels different, becomes more severe, lasts longer, or begins to spread into your shoulder, arm, neck, jaw or back Shortness of breath or increased pain with breathing Weakness, dizziness, or fainting Rapid heartbeat Crushing sensation in your chest Coughing up more than a small amount of blood. When to seek medical advice Call your healthcare provider right away if any of the following occur: Cough with dark colored sputum (phlegm) or small amount of blood Fever of 100.4F (38C) or higher, or as directed by your healthcare provider Swelling, pain or redness in one leg Last Reviewed Date: 04/11/202119999561-0596 [employer]. All rights reserved. This information is not intended as a substitute for professional medical care. Always follow your healthcare professional's instructions. * ED Fitting Room Supervisor Note - Brenda Rizzo TECH - 07/31/2023 5:12 PM EDT 1710: Positional blood pressures completed and were as follows: Supine: 136/70; 54 bpm Sittin/81; 55 bpm Standin/68; 57 bpm Pt denied any dizziness when changing positions. 1711: Pt ambulated around the department independently and with a steady gait. Pt denied any dizziness or chest pain when ambulating. Dr. Andrews made aware * ED Fitting Room Supervisor Note - Cherelle Vasquez RN - 07/31/2023 3:29 PM EDT Pt reports 3/10 L-sided chest pressure "like someone's pressing on me" remains, and mild dizziness/lightheadedness remains. He is unsure of what exacerbates dizziness/lightheadedness. He appears anxious. He reports headache after pre- hospital nitro administration. He denies SOB now or during episode. He denies diaphoresis or n/v. He denies fever/chills. NIH=0. SB on monitor. Peaked t-waves noted on EKG. Denies hx electrolyte abnormalities. Pt is on hydrochlorothiazide. Takes eliquis for hx DVTsand PE. Lungs clear upon auscultation. Heart sounds clear, regular, tachycardic. +2RP bilat. Trace edema BLE which he reports is his baseline. Arrives with pre- hospital PIV and assessed/charted. Pt on CCM and NiBP. Call dobson within reach. 1604 labs sent to lab. Plan of care explained to pt and pt verbalized understanding. On CCM and NiBP. Call dobson within reach. Denies needs at this time. documented in this encounter Plan of Treatment Upcoming Encounters Date Type Department Care Team (Late st Contact Info) Description 08/04/2023 9:20 AM EDT Office Visit [facility] [address] [place] [address] Sam Clemente PA-C [address] [place] [address] 08/09/2023 11:30 AM EDT Office Visit [facility] [address] [place] [phone] Tabitha Bruner CRNP [address] [place] [address] Scheduled Orders Name Type Priority Associated Diagnoses Orde r Schedule EXTERNAL EKG 8 TO 15 DAYS Holter Routine Chest pressure Expected: 08/01/2023 (Approximate), Expires: 07/30/2024 Scheduled Procedures Name Priority Associated Diagnoses Date/Ti me COLONOSCOPY FLEXIBLE PROXIMA L DIAGNOSTIC Recall Screening for colon cancer Scheduled Referrals Name Type Priority Associated Diagnoses Orde r Schedule CARDIOLOGY REFERRAL OP Referral Within 3 days (urgent) Chest pressure Ordered: 07/31/2023 Health Maintenance Due Date Last Done Comments Pneumococcal Vaccine: Pediatrics (0 to 5 Years) and At-Risk Patients (6 to 64 Years) (1 of 2 - PCV) 1966 Cologuard 2005 Fecal Occult Blood Test 2005 Sigmoidoscopy 2005 Zoster Vaccines (1 of 2) 2010 DTaP,Tdap,and Td Vaccines (2 - Td or Tdap) 09/17/2018 09/17/2008 COVID-19 Vaccine (1 - season) 2022 Depression Screening 07/17/2023 07/16/2022 Influenza Vaccine (FLU shot) (Season Ended) 2023 HbA1c 07/20/2024 07/21/2023, 07/10, 07/14/2021, Additional history exists GFR 07/30/2024 07/31/2023, 07/10, 04/12/2023, Additional history exists Albumin/Creatinine Ratio 07/23/2025 07/23/2022 [...] Procedure Name Priority Date/Time Associated Diagnosis Comments TROPONIN T, HIGH SENSITIVITY STAT 07/31/2023 6:[address] HEAD/BRAIN WO CONTRAST STAT 07/31/2023 4:19 PM EDT XR CHEST 1 VIEW STAT 07/31/2023 4:13 PM EDT EXTRA JOSEPH TOP Routine 07/31/2023 4:01 PM EDT EXTRA LIGHT BLUE TOP Routine 07/31/2023 4:01 PM EDT EXTRA TUBES Routine 07/31/2023 4:01 PM EDT DIFFERENTIAL, AUTOMATED STAT 07/31/2023 4:01 PM EDT TROPONIN T, HIGH SENSITIVITY STAT 07/31/2023 4:01 PM EDT BNP (NT-PROBNP) STAT 07/31/2023 4:01 PM EDT COMPREHENSIVE METABOLIC PANEL STAT 07/31/2023 4:01 PM EDT CBC STAT 07/31/2023 4:01 PM EDT CBC STAT 07/31/2023 4:01 PM EDT documented in this encounter Results * TROPONIN T, HIGH SENSITIVITY (07/31/2023 6:23 PM EDT) Pathologist [facility] Troponin T, High Sensitivity 10 <=22 ng/L 07/31/2023 7:08 PM EDT [facility] Blood Venous blood specimen / Unknown Venipuncture / Unknown 07/31/2023 6:23 PM EDT 07/31/2023 6:27 PM EDT Portillo Leon MD LAB BLOOD ORD ERABLES [facility] [address] [place] [address] * CT HEAD/BRAIN WO CONTRAST (07/31/2023 4:19 PM EDT) Anatomical Region Laterality Modality Head Computed Tomogra phy 07/31/2023 4:15 PM EDT Impressions 07/31/2023 4:53 PM EDT IMPRESSION: No acute intracranial abnormality. THIS DOCUMENT HAS BEEN ELECTRONICALLY SIGNED BY TED NEUMANN MD Narrative 07/31/2023 4:53 PM EDT PROCEDURE INFORMATION: Exam: CT Head Without Contrast Exam date and time: 07/31/2023 4:15 PM Age: 62 years old Clinical indication: Other: Rule out hemorrage TECHNIQUE: Imaging protocol: Computed tomography of the head without contrast. Radiation optimization: All CT scans at this facility use at least one of these dose optimization techniques: automated exposure control; mA and/or kV adjustment per patient size (includes targeted exams where dose is matched to clinical indication); or iterative reconstruction. COMPARISON: No relevant prior studies available. FINDINGS: Brain: Normal. No hemorrhage. Unremarkable white matter. No mass effect. Cerebral ventricles: No ventriculomegaly. Paranasal sinuses: Visualized sinuses are unremarkable. No fluid levels. Mastoid air cells: Visualized mastoid air cells are well aerated. Bones/joints: Unremarkable. No acute fracture. Soft tissues: Unremarkable. Procedure Note Ted Neumann MD - 07/31/2023 PROCEDURE INFORMATION: Exam: CT Head Without Contrast Exam date and time: 07/31/2023 4:15 PM Age: 62 years old Clinical indication: Other: Rule out hemorrage TECHNIQUE: Imaging protocol: Computed tomography of the head without contrast. Radiation optimization: All CT scans at this facility use at least one ofthese dose optimization techniques: automated exposure control; mA and/or kV adjustment per patient size (includes targeted exams where dose is matchedto clinical indication); or iterative reconstruction. COMPARISON: No relevant prior studies available. FINDINGS: Brain: Normal. No hemorrhage. Unremarkable white matter. No mass effect. Cerebral ventricles: No ventriculomegaly. Paranasal sinuses: Visualized sinuses are unremarkable. No fluid levels. Mastoid air cells: Visualized mastoid air cells are well aerated. Bones/joints: Unremarkable. No acute fracture. Soft tissues: Unremarkable. IMPRESSION IMPRESSION: No acute intracranial abnormality. THIS DOCUMENT HAS BEEN ELECTRONICALLY SIGNED BY TED NEUMANN MD Portillo Leon MD RAD CT * XR CHEST 1 VIEW (07/31/2023 4:13 PM EDT) Anatomical Region Laterality Modality Chest Digital Radiogra phy 07/31/2023 4:05 PM EDT Impressions 07/31/2023 4:55 PM EDT IMPRESSION: No acute findings. THIS DOCUMENT HAS BEEN ELECTRONICALLY SIGNED BY TED NEUMANN MD Narrative 07/31/2023 4:55 PM EDT PROCEDURE INFORMATION: Exam: XR Chest Exam date and time: 07/31/2023 4:05 PM Age: 62 years old Clinical indication: Left-sided; Patient HX: Left sided chest pain; Additional info: Rule out pneumothorax TECHNIQUE: Imaging protocol: Radiologic exam of the chest. Views: 1 view. COMPARISON: CT PULMONARY EMBOLUS W CONTRAST 07/19/2022 1:33 PM FINDINGS: Lungs: Unremarkable. No consolidation. Pleural spaces: Unremarkable. No pleural effusion. No pneumothorax. Heart/Mediastinum: Unremarkable. No cardiomegaly. Bones/joints: Unremarkable. Procedure Note Ted Neumann MD - 07/31/2023 PROCEDURE INFORMATION: Exam: XR Chest Exam date and time: 07/31/2023 4:05 PM Age: 62 years old Clinical indication: Left-sided; Patient HX: Left sided chest pain;Additional info: Rule out pneumothorax TECHNIQUE: Imaging protocol: Radiologic exam of the chest. Views: 1 view. COMPARISON: CT PULMONARY EMBOLUS W CONTRAST 07/19/2022 1:33 PM FINDINGS: Lungs: Unremarkable. No consolidation. Pleural spaces: Unremarkable. No pleural effusion. No pneumothorax. Heart/Mediastinum: Unremarkable. No cardiomegaly. Bones/joints: Unremarkable. IMPRESSION IMPRESSION: No acute findings. THIS DOCUMENT HAS BEEN ELECTRONICALLY SIGNED BY TED NEUMANN MD Portillo Leon MD RADIOLOGY (RA D GENERAL) * EXTRA JOSEPH TOP (07/31/2023 4:01 PM EDT) Blood Venous blood specimen / Unknown 07/31/2023 4:01 PM EDT 07/31/2023 4:06 PM EDT Steffany Andrews DO LAB BLOOD BLAIR FUENTES [facility] [address] [place] [address] * EXTRA LIGHT BLUE TOP (07/31/2023 4:01 PM EDT) Blood Venous blood specimen / Unknown 07/31/2023 4:01 PM EDT 07/31/2023 4:06 PM EDT Steffany Andrews DO LAB BLOOD ORDLizbeth FUENTES [facility] [address] [place] [address] * (ABNORMAL) DIFFERENTIAL, AUTOMATED (07/31/2023 4:01 PM EDT) WBC 9.19 4.00 - 10.80 K/uL 07/31/2023 4:09 PM EDT [facility] Neutrophils % 73.7 40.0 - 75.0 % 07/31/2023 4:09 PM EDT [facility] Lymphocytes % 17.4(L) 18.0 - 42.0 % 07/31/2023 4:09 PM EDT [facility] Monocytes % 7.1 1.0 - 11.0 % 07/31/2023 4:09 PM EDT [facility] Eosinophils % 1.0 0.0 - 6.0 % 07/31/2023 4:09 PM EDT [facility] Basophils % 0.4 0.0 - 2.0 % 07/31/2023 4:09 PM EDT LABORATORY GL Immature Granulocytes % 0.4 0.0 - 2.0 % 07/31/2023 4:09 PM EDT [facility] Absolute Neutrophils 6.77 1.80 - 7.70 K/uL 07/31/2023 4:09 PM EDT [facility] Absolute Lymphocytes 1.60 1.00 - 4.80 K/ul 07/31/2023 4:09 PM EDT [facility] Absolute Monocytes 0.65 0.00 - 1.10 K/uL 07/31/2023 4:09 PM EDT LABORATORY GL Absolute Eosinophils 0.09 0.00 - 0.70 K/uL 07/31/2023 4:09 PM EDT [facility] Absolute Basophils 0.04 0.00 - 0.20 K/uL 07/31/2023 4:09 PM EDT [facility] Absolute Immature Granulocytes 0.04 0.00 - 0.20 K/uL 07/31/2023 4:09 PM EDT [facility] Blood Venous blood specimen / Unknown Venipuncture / Unknown 07/31/2023 4:01 PM EDT 07/31/2023 4:05 PM EDT Portillo Leon MD LAB BLOOD ORD ERABLES [facility] [address] [place] [address] * (ABNORMAL) CBC (07/31/2023 4:01 PM EDT) WBC 9.19 4.00 - 10.80 K/uL 07/31/2023 4:09 PM EDT [facility] RBC 4.14 4.50 - 5.25 M/uL 07/31/2023 4:09 PM EDT [facility] HGB 12.9(L) 14.0 - 16.8 g/dL 07/31/2023 4:09 PM EDT [facility] HCT 36.7(L) 40.0 - 48.4 % 07/31/2023 4:09 PM EDT [facility] MCV 88.6 82.0 - 99.5 fL 07/31/2023 4:09 PM EDT [facility] MCH 31.2 27.0 - 34.0 pg 07/31/2023 4:09 PM EDT [facility] MCHC 35.1 32.0 - 36.0 g/dL 07/31/2023 4:09 PM EDT [facility] RDW 12.3 11.5 - 15.5 % 07/31/2023 4:09 PM EDT [facility] PLT 276 140 - 400 K/uL 07/31/2023 4:09 PM EDT [facility] MPV 9.9 6.6 - 11.1 fL 07/31/2023 4:09 PM EDT [facility] nRBCs 0 <=0 /100 WBCs 07/31/2023 4:09 PM EDT [facility] Blood Venous blood specimen / Unknown Venipuncture / Unknown 07/31/2023 4:01 PM EDT 07/31/2023 4:05 PM EDT Portillo Leon MD LAB BLOOD ORD ERABLES Performing Organization Address City/[facility]/ZIP Co de Phone Number LABORATORY [address] [address] * TROPONIN T, HIGH SENSITIVITY (07/31/2023 4:01 PM EDT) Troponin T, High Sensitivity 9 <=22 ng/L 07/31/2023 4:44 PM EDT [facility] Blood Venous blood specimen / Unknown Venipuncture / Unknown 07/31/2023 4:01 PM EDT 07/31/2023 4:05 PM EDT Portillo Leon MD LAB BLOOD ORD ERABLES LABORATORY [address] [address] * BNP, NT-PRO (07/31/2023 4:01 PM EDT) BNP, NT-Pro 213 <300 pg/mL 07/31/2023 4:54 PM EDT [facility] Blood Venous blood specimen / Unknown Venipuncture / Unknown 07/31/2023 4:01 PM EDT 07/31/2023 4:05 PM EDT Narrative [facility] - 07/31/2023 4:54 PM EDT Exclude Heart Failure: <300 pg/mL Diagnose Heart Failure: Age <50 yr: >450 pg/mL 50-75 yr: >900 pg/mL >75 yr: >1800 pg/mL GFR is 30-59 mL/min: >1200 pg/mL or Age-adjusted values GFR <30 mL/min: do not use, not reliable Prognostic threshold: 1000 pg/mL Portillo Leon MD LAB BLOOD ORD ERABLES [facility] [address] [place] [address] * (ABNORMAL) COMPREHENSIVE METABOLIC PANEL (07/31/2023 4:01 PM EDT) BUN 10 6 - 20 mg/dL 07/31/2023 4:54 PM EDT [facility] Creatinine 0.8 0.6 - 1.2 mg/dL 07/31/2023 4:54 PM EDT [facility] Estimated Glomerular Filtration Rate >90 >=60 mL/min 07/31/2023 4:54 PM EDT [facility] Comment:eGFR is calculated b ased on the CKD-EPI 2020 equation Sodium 131(L) 135 - 146 mmol/L 07/31/2023 4:54 PM EDT [facility] Potassium 3.9 3.5 - 5.1 mmol/L 07/31/2023 4:54 PM EDT [facility] Chloride 95(L) 98 - 107 mmol/L 07/31/2023 4:54 PM EDT [facility] CO2 20(L) 22 - 32 mmol/L 07/31/2023 4:54 PM EDT [facility] Anion Gap 16(H) 7 - 15 mmol/L 07/31/2023 4:54 PM EDT [facility] Glucose 108 70 - 120 mg/dL 07/31/2023 4:54 PM EDT [facility] Albumin 4.2 3.8 - 5.0 g/dL 07/31/2023 4:54 PM EDT [facility] AST 33 10 - 50 U/L 07/31/2023 4:54 PM EDT [facility] Comment:Result may be falsel y elevated due to hemolysis. Alkaline Phosphatase 85 35 - 130 U/L 07/31/2023 4:54 PM EDT [facility] Bilirubin, Total 0.4 <=1.2 mg/dL 07/31/2023 4:54 PM EDT [facility] Calcium 9.1 8.4 - 10.2 mg/dL 07/31/2023 4:54 PM EDT [facility] Protein 7.1 6.0 - 8.3 g/dL 07/31/2023 4:54 PM EDT [facility] ALT 35 10 - 50 U/L 07/31/2023 4:54 PM EDT LABORATORY [facility] Blood Venous blood specimen / Unknown Venipuncture / Unknown 07/31/2023 4:01 PM EDT 07/31/2023 4:05 PM EDT Portillo Leon MD LAB BLOOD ORD ERABLES LAB[facility]ATORY [facility] [address] [facility] [place] [id number] documented in this encounter Visit Diagnoses Diagnosis Chest pressure- Primary Other chest pain documented in this encounter Advance Directives Latest Code Status on File Code Status Date Activated Date Inactivated Comments Full Code 10/17/2018 7:16 PM 10/19/2018 4:24 PM This o rder reflects the patients wishes and were consensually agreed upon. Question Answer Comments Discussion of Advance Directives occurred with: Patient Care Teams Paper Reeler Relationship Specialty Start Date End Date Sam Clemente PA-C [address] [place] [address] PCP - General Physician [employer] 02/02/23 documented as of this encounter
--- OUTSIDE RECORDS SUMMARY | 2023-10-19 14:42 | External Medical Summary | Summary of Care ---
Author Name Unknown Organization [facility] Address [address] [facility] [place] [address] Phone [phone] Care Team Providers Care Union Steward Name Role Phone Sam Clemente PA-C Primary Care Provide r Encounter Details Date Type Department Care Team (Late st Contact Info) Description 08/19/2023 Orders Only [facility], [place] [address] [facility] [place] [address] Tabitha Chauhan CRNP [address] [facility] [place] [phone] Hyponatremia* Allergies Active Allergy Reactions Criticality Noted Date Comments Penicillins Rash 05/19/2012 documented as of this encounter (statuses as of 08/19/2023) Medications Medication Sig Dispensed Refills Start Date End Date Status Misc. Devices MISC Custom Molded Orthotics 1 Each 0 10/23/2019 Active Omeprazole 20 MG Oral Capsule [...] BY MOUTH TWICE DAILY 180 Tablet 0 08/01/2023 Active Pravastatin Sodium 10 MG Oral [...] the morning. 45 Tablet 1 08/19/2023 Active Chlorthalidone 25 MG Oral Tablet (Hygroton) Take 1 Tablet by mouth in the morning. 90 Tablet 3 08/09/2023 08/19/19 24 Discontinued documented as of this encounter (statuses as of 08/19/2023) Active Problems Problem Noted Date Diagnosed Date [...] as of this encounter (statuses as of 08/19/2023) Resolved Problems Problem Noted Date Diagnosed Date Resolved Date Elevated hemoglobin 07/15/2021 04/14/19 24 Personal history of alcoholism 07/13/2021 04/14/2023 Stage 2 chronic kidney disease 01/02/2021 07/10/2021 Loss of weight 01/02/2021 01/20/2022 Pulmonary embolism 10/17/2018 0 Acute deep vein thrombosis ( DVT) of left lower extremity 10/17/2018 04/24/2019 documented as of this encounter (statuses as of 08/19/2023) Immunizations Name Administration Dates Next Due TDAP [...] 09/13/2023 12:45 PM EDT Appointment Cardiac Studies, [address] [place] [address] 09/13/2023 2:00 PM EDT Appointment Vascular Lab, [address] [place] [address] 09/20/2023 11:00 AM EDT Office [address] Cardiology, [address] [place] [address] Tabitha Chauhan CRNP [address] [place], [place] [address] [address] 11/15/2024 9:00 AM EDT [facility] [facility] [place] [address] Sam Clemente PA-C [address] [place] [address] Scheduled Orders Name Type Priority Associated Diagnoses Orde r Schedule BASIC METABOLIC PANEL Lab Routine Hyponatremia Expected: 09/02/2023, Expires: 08/18/2024 Scheduled Procedures Name Priority Associated Diagnoses Date/Ti [...] Depression Screening 08/03/2024 08/04/2023 GFR 08/17/2024 08/18/2023, 0404/2023, 07/21/2023, Additional history exists Albumin/Creatinine Ratio 07/23/2025 [...] as of this encounter Visit Diagnoses Diagnosis Hyponatremia- Primary Hyposmolality and/or hyponatremia documented in this encounter Advance Directives Latest Code Status on File Code Status Date Activated Date Inactivated Comments Full Code 10/17/2018 7:16 PM 10/19/2018 4:24 PM This o rder reflects the patients wishes and were consensually agreed upon. Question Answer Comments Discussion of Advance Directives occurred with: Patient Care Teams Union Steward Relationship Specialty Start Date End Date Sam Clemente PA-C [address] [place] [phone] PCP - General Physician Computer Equipment Repairer 02/02/23 documented as of this encounter
--- OUTSIDE RECORDS SUMMARY | 2023-10-19 14:42 | External Medical Summary | Summary of Care ---
Author Name Unknown Organization [facility] Address [address] [facility] [place] [address] Phone [phone] Care Team Providers Care Log Handling Equipment Operator Name Role Phone Sam Clemente PA-C Primary Care Provide r Reason for Visit * Reason Comments Routine Exam 6 mo check up. Went to the ED on Tuesday. For SOB, pressure in chest. Is going to try to quit smoking and wants to discuss getting something for his breathing. Talk about smoking cessation. Encounter Details Date Type Department Care Team (Late st Contact Info) Description 08/04/2023 9:20 AM EDT Office Visit [facility] [place] [address] [facility] [place] [phone] Sma Clemente PA-C [address] [facility] [place] [phone] SOB (shortness of breath)*; Tobacco use disorder; History of pulmonary embolism; HTN, goal below 140/90; Mixed hyperlipidemia; BPH without obstruction/lower urinary tract symptoms Allergies Active Allergy Reactions Criticality Noted Date Comments Penicillins Rash 05/19/2012 documented as of this encounter (statuses as of 08/04/2023) Medications Medication Sig Dispensed Refills Start Date End Date Status Misc. Devices MISC Custom Molded Orthotics 1 Each 0 0 Active Omeprazole 20 MG Oral Capsule Delayed Release (PriLOSEC)Indicati ons:GERD without esophagitis Take 1 capsule by mouth 60 minutes before the first meal of the day 30 Capsule 11 3 Active Tamsulosin HCl 0.4 MG Oral Capsule (Flomax)Indication s:Nocturia Take 1 Capsule by mouth in the morning. 90 Capsule 3 3 Active Nebivolol HCl 20 MG Oral Tablet (Bystolic)Indicati ons:HTN, goal below 140/90 Take 0.5 Tablets by mouth in the morning and 0.5 Tablets before bedtime. 90 Tablet 1 3 Active Lisinopril 40 MG Oral TabletIndications: HTN, goal below 140/90 Take 1 Tablet by mouth in the morning. 90 Tablet 3 4 Active Eliquis 5 MG Oral Tablet (Apixaban) TAKE ONE TABLET BY MOUTH TWICE DAILY 180 Tablet 0 4 Active hydroCHLOROthiazid e 25 MG Oral Tablet (Hydrodiuril)Indic ations:HTN, goal below 140/90 Take 1 Tablet by mouth in the morning. 90 Tablet 3 4 Active Pravastatin Sodium 10 MG Oral Tablet (Pravachol)Indicat ions:Mixed hyperlipidemia Take 1 Tablet by mouth in the morning. In the morning.. 90 Tablet 3 4 Active buPROPion HCl ER (SR) 100 MG Oral Tablet Extended Release 12 Hour (Wellbutrin SR)Indications:Tob acco use disorder Take 1 Tablet by mouth in the morning and 1 Tablet before bedtime. 60 Tablet 5 4 Active ProAir HFA 108 (90 Base) MCG/ACT Inhalation Aerosol SolutionIndication s:SOB (shortness of breath),Tobacco use disorder Inhale 2 Puffs by mouth every 4 hours as needed for Wheezing. 18 g 3 4 Active Pravastatin Sodium 10 MG Oral Tablet (Pravachol) TAKE ONE TABLET BY MOUTH EVERY DAY IN THE MORNING. 90 Tablet 3 3 08/04/19 24 Discontinued(Ref ill) hydroCHLOROthiazid e 25 MG Oral Tablet (Hydrodiuril)Indic ations:HTN, goal below 140/90 TAKE ONE TABLET BY MOUTH ONCE DAILY 90 Tablet 3 3 08/04/19 24 Discontinued(Ref ill) Sulfamethoxazole-T rimethoprim 800-160 MG Oral Tablet (Bactrim DS) Take 1 Tablet by mouth in the morning and 1 Tablet before bedtime. Do all this for 14 days. Until gone. 28 Tablet 0 4 08/04/19 24 Discontinued Doxycycline Hyclate 100 MG Oral CapsuleIndications :Epidermoid cyst Take 1 Capsule by mouth in the morning and 1 Capsule before bedtime. Do all this for 10 days. Until gone.. 20 Capsule 0 4 08/04/19 24 Discontinued documented as of this encounter (statuses as of 08/04/2023) Active Problems Problem Noted Date Diagnosed Date [...] as of this encounter (statuses as of 08/04/2023) Resolved Problems Problem Noted Date Diagnosed Date Resolved Date Elevated hemoglobin 07/15/2021 04/14/19 24 Personal history of alcoholism 07/13/2021 04/14/2023 Stage 2 chronic kidney disease 01/02/2021 07/10/2021 Loss of weight 01/02/2021 01/20/2022 Pulmonary embolism 10/17/2018 0 Acute deep vein thrombosis ( DVT) of left lower extremity 10/17/2018 04/24/2019 documented as of this encounter (statuses as of 08/04/2023) Immunizations Name Administration Dates Next Due TDAP (age 10 and older)(Boostrix) 09/17/2008 documented as of this encounter Social History Tobacco Use Types Packs/Day Years Used Date Smoking Tobacco: Every Day Cigarettes 1 35 Smokeless Tobacco: Never Tobacco Cessation:Ready to Q uit: Not Asked; Counseling Given: Not Answered Alcohol Use Standard Drinks/Week Comments Yes 72 [...] Sign Reading Time Taken Comments Blood Pressure 156/82 08/04/2023 9:20 AM EDT Pulse 49 08/04/2023 9:20 AM EDT Temperature 36.3 C (97.4 F) 08/04/2023 9:20 AM ED T Respiratory Rate 16 08/04/2023 9:20 AM EDT Oxygen Saturation 98% 08/04/2023 9:20 AM EDT Inhaled Oxygen Concentration - - Weight 93.6 kg (206 lb 6.4 oz) 08/04/2023 9:20 A M EDT Height 180.3 cm (5' 11") 08/04/2023 9:20 AM EDT Body Mass Index 28.79 08/04/2023 9:20 AM EDT documented in this encounter Functional [...] as of this encounter Progress Notes * Sam Clemente PA-C - 08/04/2023 9:32 AM EDT Subjective Luis Robledo is a 62 year old male. Chief Complaint Patient presents with Routine Exam 6 mo check up. Went to the ED on Tuesday. For SOB, pressure in chest. Is going to try to quit smoking and wants to discuss getting something for his breathing. Talk about smoking cessation. HPI: Luis is a 62 year old male who presents for 6 month follow up. Recently seen at [facility] for chest pressure. Workup was stable overall. Does have a follow up appointment with cardiology next week. Would like to try to quit smoking. Has been cutting back on his own. Would like to add a medication. Also would like something to help with his breathing. Would like an inhaler. PMH: Patient Active Problem List Diagnosis Code HTN, goal below 140/90 I10 Tobacco use disorder F17.200 Personal history of skin cancer Z85.828 Hereditary and idiopathic peripheral neuropathy G60.9 History of pulmonary embolism Z86.711 History of DVT (deep vein thrombosis) Z86.718 Prediabetes R73.03 Mixed hyperlipidemia E78.2 Gastroesophageal reflux disease without esophagitis K21.9 BPH without obstruction/lower urinary tract symptoms N40.0 Current Outpatient Medications Medication Sig Dispense Refill Misc. Devices MISC Custom Molded Orthotics 1 Each 0 Omeprazole 20 MG Oral Capsule Delayed Release (PriLOSEC) Take 1 capsule by mouth 60 minutes before the first meal of the day 30 Capsule 11 Tamsulosin HCl 0.4 MG Oral Capsule (Flomax) Take 1 Capsule by mouth in the morning. 90 Capsule 3 Nebivolol HCl 20 MG Oral Tablet (Bystolic) Take 0.5 Tablets by mouth in the morning and 0.5 Tabletsbefore bedtime. 90 Tablet 1 Lisinopril 40 MG Oral Tablet Take 1 Tablet by mouth in the morning. 90 Tablet 3 Eliquis 5 MG Oral Tablet (Apixaban) TAKE ONE TABLET BY MOUTH TWICE DAILY 180 Tablet 0 hydroCHLOROthiazide 25 MG Oral Tablet (Hydrodiuril) Take 1 Tablet by mouth in the morning. 90 Tablet 3 Pravastatin Sodium 10 MG Oral Tablet (Pravachol) Take 1 Tablet by mouth in the morning. In the morning.. 90 Tablet 3 buPROPion HCl ER (SR) 100 MG Oral Tablet Extended Release 12 Hour (Wellbutrin SR) Take 1 Tablet by mouth in the morning and 1 Tablet before bedtime. 60 Tablet 5 ProAir HFA 108 (90 Base) MCG/ACT Inhalation Aerosol Solution Inhale 2 Puffs by mouth every 4 hours as needed for Wheezing. 18 g 3 No current facility-administered medications for this visit. Past Medical History: Diagnosis Date Acute deep vein thrombosis (DVT) of left lower extremity (HCC) 10/17/2018 HTN, goal below 140/90 Tobacco use disorder Past Surgical History: Procedure Laterality Date COLONOSCOPY W/ BIOPSY (RECTUM) N/A 03/19/2022 diverticulosis sigmoid colon/recall 10 years/COLONOSCOPY FLEXIBLE WITH BIOPSY performed by Rani Rea DO at [facility] Review of patient's allergies indicates: Allergen Reactions Penicillins Rash Family History Problem Relation Age of Onset Hypertension Mother Diabetes Mother No Past Hx Other unaware of fam hx of skin ca, melanoma, or skin dz Family Status Relation Status Mo at age 55 years Other (Not Specified) Social History Socioeconomic History Marital status: Spouse name: Not on file Number of children: Not on file Years of education: Not on file Highest education level: Not on file Occupational History Not on file Tobacco Use Smoking status: Every Day Current packs/day: 1.00 Average packs/day: 1 pack/day for 35.0 years (35.0 ttl pk-yrs) Types: Cigarettes Smokeless tobacco: Never Vaping Use Vaping Use: Never used Substance and Sexual Activity Alcohol use: Yes Alcohol/week: 72.0 standard drinks of alcohol Types: 72 12 oz of beer per week Comment: Admits to 6, 10 on /weekend day Beer only Drug use: Yes Types: Marijuana Sexual activity: Not on file Other Topics Concern Not on file Social History Narrative Not on file Social Determinants of Health Financial Resource Strain: Not on file Food Insecurity: No Food Insecurity (09/13/2022) Hunger Vital Sign Worried About Running Out of Food in the Last Year: Never true Ran Out of Food in the Last Year: Never true Transportation Needs: Not on file Physical Activity: Not on file Stress: Not on file Social Connections: Not on file Intimate Partner Violence: Not on file Housing Stability: Not on file Review of Systems Constitutional: Negative for appetite change, chills, diaphoresis, fatigue, fever and unexpected weight change. HENT: Negative for congestion, ear discharge, ear pain, hearing loss, postnasal drip, rhinorrhea, sinus pressure, sinus pain, sore throat and trouble swallowing. Eyes: Negative for photophobia, pain, discharge, redness, itching and visual disturbance. Respiratory: Positive for shortness of breath. Negative for cough, chest tightness and wheezing. Cardiovascular: Negative for chest pain, palpitations and leg swelling. Gastrointestinal: Negative for abdominal pain, blood in stool, constipation, diarrhea, nausea and vomiting. Genitourinary: Negative for decreased urine volume, difficulty urinating, dysuria, flank pain, frequency, hematuria and urgency. Musculoskeletal: Negative for arthralgias, back pain, gait problem, joint swelling, myalgias, neck pain and neck stiffness. Skin: Negative for color change, pallor, rash and wound. Neurological: Negative for dizziness, syncope, weakness, light-headedness, numbness and headaches. Psychiatric/Behavioral: Negative for agitation, behavioral problems, confusion, decreased concentration, dysphoric mood, hallucinations, self-injury, sleep disturbance and suicidal ideas. The patientis not nervous/anxious and is not hyperactive. Objective BP 156/82 | Pulse 49 | Temp 36.3 C (97.4 F) (Tympanic) | Resp 16 | Ht 1.803 m (5' 11") | Wt 93.6 kg (206 lb 6.4 oz) | SpO2 98% | BMI 28.79 kg/m | BSA 2.17 m Physical Exam Constitutional: General: He is not in acute distress. Appearance: Normal appearance. He is well-developed and normal weight. He is not ill-appearing, toxic-appearing or diaphoretic. HENT: Head: Normocephalic and atraumatic. Jaw: No trismus. Right Ear: Tympanic membrane, ear canal and external ear normal. There is no impacted cerumen. Left Ear: Tympanic membrane, ear canal and external ear normal. There is no impacted cerumen. Nose: Nose normal. No mucosal edema, congestion or rhinorrhea. Right Sinus: No maxillary sinus tenderness or frontal sinus tenderness. Left Sinus: No maxillary sinus tenderness or frontal sinus tenderness. Mouth/Throat: Mouth: Mucous membranes are moist. Pharynx: Oropharynx is clear. Uvula midline. No oropharyngeal exudate, posterior oropharyngeal erythema or uvula swelling. Tonsils: No tonsillar abscesses. Eyes: General: No scleral icterus. Right eye: No discharge. Left eye: No discharge. Extraocular Movements: Extraocular movements intact. Conjunctiva/sclera: Conjunctivae normal. Pupils: Pupils are equal, round, and reactive to light. Cardiovascular: Rate and Rhythm: Normal rate and regular rhythm. Pulses: Normal pulses. Heart sounds: Normal heart sounds. No murmur heard. No friction rub. No gallop. Pulmonary: Effort: Pulmonary effort is normal. No respiratory distress. Breath sounds: Normal breath sounds. No stridor. No decreased breath sounds, wheezing, rhonchi or rales. Chest: Chest wall: No tenderness. Abdominal: General: Bowel sounds are normal. There is no distension or abdominal bruit. Palpations: Abdomen is soft. Abdomen is not rigid. There is no hepatomegaly, splenomegaly or mass. Tenderness: There is no abdominal tenderness. There is no right CVA tenderness, left CVA tenderness, guarding or rebound. Negative signs include Olivia's sign and McBurney's sign. Hernia: No hernia is present. Musculoskeletal: General: No swelling, tenderness, deformity or signs of injury. Normal range of motion. Cervical back: Neck supple. Right lower leg: No edema. Left lower leg: No edema. Lymphadenopathy: Cervical: No cervical adenopathy. Skin: General: Skin is warm and dry. Coloration: Skin is not jaundiced or pale. Findings: No erythema or rash. Neurological: General: No focal deficit present. Mental Status: He is alert and oriented to person, place, and time. Mental status is at baseline. Psychiatric: Mood and Affect: Mood normal. Behavior: Behavior normal. Thought Content: Thought content normal. Judgment: Judgment normal. ASSESSMENT/PLAN: SOB (shortness of breath) (Primary) - ProAir HFA 108 (90 Base) MCG/ACT Inhalation Aerosol Solution; Inhale 2 Puffs by mouth every 4 hours as needed for Wheezing. Start albuterol. Declined PFT's at this time. Tobacco use disorder - buPROPion HCl ER (SR) 100 MG Oral Tablet Extended Release 12 Hour (Wellbutrin SR); Take 1 Tablet by mouth in the morning and 1 Tablet before bedtime. - ProAir HFA 108 (90 Base) MCG/ACT Inhalation Aerosol Solution; Inhale 2 Puffs by mouth every 4 hours as needed for Wheezing. Reinforced importance of smoking cessation. Start Wellbutrin to help. History of pulmonary embolism Continue Eliquis. HTN, goal below 140/90 - hydroCHLOROthiazide 25 MG Oral Tablet (Hydrodiuril); Take 1 Tablet by mouth in the morning. BP at goal. Mixed hyperlipidemia - Pravastatin Sodium 10 MG Oral Tablet (Pravachol); Take 1 Tablet by mouth in the morning. In the morning.. BPH without obstruction/lower urinary tract symptoms Continue Flomax. PSA stable. Follow Up: Return in about 6 weeks (around 09/15/2023), or if symptoms worsen or fail to improve. Sam Clemente PA-C * Delonte Caicedo LPN - 08/04/2023 9:23 AM EDT Chief Complaint Patient presents with Routine Exam 6 mo check up. Went to the ED on Tuesday. For SOB, pressure in chest. Is going to try to quit smoking and wants to discuss getting something for his breathing. Talk about smoking cessation. documented in this encounter Plan of Treatment Upcoming Encounters Date Type Department Care Team (Late st Contact Info) Description 08/09/2023 11:30 AM EDT [facility] [address] [place] [address] Tabitha Bruner CRNP [address] [place] [phone] 11/15/2024 9:00 AM EDT Office Visit [facility] [place] [address] [place] [address] Sam Clemente PA-C [address] [place] [address] Scheduled Procedures Name Priority Associated Diagnoses Date/Ti [...] 09/17/2008 COVID-19 Vaccine ( - season) 2022 Influenza Vaccine (FLU shot) (Season Ended) 2023 HbA1c 07/20/2024 07/21/2023, 07/10, 07/14/2021, Additional history exists GFR 07/30/2024 07/31/2023, 07/10, 04/12/2023, Additional history exists Depression Screening 08/03/2024 08/04/2023 Albumin/Creatinine Ratio 07/23/2025 07/23/2022 Lipid Panel 07/20/2028 [...] as of this encounter Visit Diagnoses Diagnosis SOB (shortness of breath)- Primary Shortness of breath Tobacco use disorder History of pulmonary embolism Personal history of pulmonary embolism HTN, goal below 140/90 Unspecified essential hypertension Mixed hyperlipidemia BPH without obstruction/lower urinary tract symptoms Hypertrophy of prostate without urinary obstruction and other lower urinary tract symptoms (LUTS) documented in this encounter Advance Directives Latest Code Status on File Code Status Date Activated Date Inactivated Comments Full Code 10/17/2018 7:16 PM 10/19/2018 4:24 PM This o rder reflects the patients wishes and were consensually agreed upon. Question Answer Comments Discussion of Advance Directives occurred with: Patient Care Teams Log Handling Equipment Operator Relationship Specialty Start Date End Date Sam Clemente PA-C [address] [place] [phone] PCP - General Physician Drug Abuse Resistance Education Officer 02/02/23 documented as of this encounter
--- OUTSIDE RECORDS SUMMARY | 2023-10-19 14:42 | External Medical Summary | Summary of Care ---
Author Name Unknown Organization [facility] Address [address] [facility] [place] [address] Phone [phone] Care Team Providers Care Financing Analyst Name Role Phone Whitney Clemente PA-C Primary Care Provide r Reason for Visit * Reason Comments eRx-Medication Refill Encounter Details Date Type Department Care Team (Late st Contact Info) Description 08/05/[address] [facility], [place] [address] [facility] [place] [phone] Whitney Clemente PA-C 27 [facility] [place] [address] HTN, goal below 140/90 Allergies Active Allergy Reactions Criticality Noted Date Comments Penicillins Rash 05/19/2012 documented as of this encounter (statuses as of 08/05/2023) Medications Medication Sig Dispensed Refills Start Date [...] TWICE DAILY 180 Tablet 0 08/01/2023 Active hydroCHLOROthiazide 25 MG Oral Tablet (Hydrodiuril)Indica tions:HTN, goal below 140/90 Take 1 Tablet by mouth in the morning. 90 Tablet 3 08/04/2023 Active Pravastatin Sodium 10 MG Oral Tablet (Pravachol)Indicati ons:Mixed hyperlipidemia Take 1 Tablet by mouth in the morning. In the morning.. 90 Tablet 3 08/04/2023 Active buPROPion HCl ER (SR) 100 MG Oral Tablet Extended Release 12 Hour (Wellbutrin SR)Indications:[employer]oba retail account manager use disorder Take 1 Tablet by mouth in the morning and 1 Tablet before bedtime. 60 Tablet 5 08/04/2023 Active ProAir HFA 108 (90 Base) MCG/ACT Inhalation Aerosol SolutionIndications :SOB (shortness of breath),Tobacco use disorder Inhale 2 Puffs by mouth every 4 hours as needed for Wheezing. 18 g 3 08/04/2023 Active Nebivolol HCl 20 MG Oral Tablet (Bystolic)Indicatio ns:HTN, goal below 140/90 TAKE 1/2 TABLET BY MOUTH IN THE MORNING AND 1/2 AT BEDTIME 90 Tablet 1 08/05/2023 Active Nebivolol HCl 20 MG Oral Tablet (Bystolic)Indicatio ns:HTN, goal below 140/90 Take 0.5 Tablets by mouth in the morning and 0.5 Tablets before bedtime. 90 Tablet 1 02/16/2023 08/05/19 24 Discontinued documented as of this encounter (statuses as of 08/05/2023) Active Problems Problem Noted Date Diagnosed Date [...] as of this encounter (statuses as of 08/05/2023) Resolved Problems Problem Noted Date Diagnosed Date Resolved Date Elevated hemoglobin 07/15/2021 04/14/19 24 Personal history of alcoholism 07/13/2021 04/14/2023 Stage 2 chronic kidney disease 01/02/2021 07/10/2021 Loss of weight 01/02/2021 01/20/2022 Pulmonary embolism 10/17/2018 0 Acute deep vein thrombosis ( DVT) of left lower extremity 10/17/2018 04/24/2019 documented as of this encounter (statuses as of 08/05/2023) Immunizations Name Administration Dates Next Due TDAP [...] Telephone Encounter - Whitney Clemente PA-C - 08/05/2023 9:15 AM EDT Signed Prescriptions: Disp Refills Nebivolol HCl 20 MG Oral Tablet (Bystolic) 90 Tab*1 Sig: TAKE 1/2 TABLET BY MOUTH IN THE MORNING AND 1/2 AT BEDTIME Authorizing Provider: WHITNEY CLEMENTE * Telephone Encounter - Aleksandra Thakkar, MED ASSIST - 08/05/2023 8:56 AM EDT Pending Prescriptions: Disp Refills Nebivolol HCl 20 MG Oral Tablet (Bystolic) 90 Tab*1 Sig: TAKE 1/2 TABLET BY MOUTH IN THE MORNING AND 1/2 AT BEDTIME * Telephone Encounter - Aleksandra Thakkar MED ASSIST - 08/05/2023 8:56 AM EDT Did you pend patient's preferred pharmacy and medication before forwarding?yes Pharmacy: [id number] [address] [place] Pending Prescriptions: Disp Refills Nebivolol HCl 20 MG Oral Tablet (Bystolic*90 Tab*0 Sig: TAKE 1/2 TABLET BY MOUTH IN THE MORNING AND 1/2 AT BEDTIME Last Visit: 08/04/2023 (in office), Visit date not found (telemedicine) Next Visit: Visit date not found If no future appointments scheduled, and last appointment is greater than a year ago, please schedule patient for a follow-up appointment Last date the medication was ordered: 02/16/2023 Is this request for a controlled substance?No Urine Drug Screen:No results found for this or any previous visit. Patient Phone Numbers Labs: Lab Results Component Value Date/Time CREAT 0.8 07/31/2023 04:01 PM CREAT 0.88 01/21/2022 12:00 AM CREAT 1.0 03/20/2019 02:42 PM POTASSIUM 3.9 07/31/2023 04:01 PM POTASSIUM 4.0 01/21/2022 12:00 AM POTASSIUM 4.3 [...] Description 08/09/2023 11:30 AM EDT Office Visit Cardiology, [place] [address] [place] [address] [place] [address] Tabitha Bruner CRNP [address] [employer] [place] [address] 11/15/2024 9:00 AM EDT Office Visit [facility] [place] [address] [facility] [address] [place] [address] Whitney Clemente PA-C [address] [facility] [address] [place] [address] Scheduled Procedures Name Priority Associated Diagnoses Date/Ti [...] 09/17/2008 COVID-19 Vaccine (1 - season) 2022 Influenza Vaccine (FLU shot) [...] encounter Visit Diagnoses Diagnosis HTN, goal below 140/90 Unspecified essential hypertension documented in this encounter Advance Directives Latest Code Status on File Code Status Date Activated Date Inactivated Comments Full Code 10/17/2018 7:16 PM 10/19/2018 4:24 PM This o rder reflects the patients wishes and were consensually agreed upon. Question Answer Comments Discussion of Advance Directives occurred with: Patient Care Teams Financing Analyst Relationship Specialty Start Date End Date Whitney Clemente PA-C 27 [facility] [place] [address] PCP - General Physician Retail Store Clerk 02/02/23 documented as of this encounter
--- OUTSIDE RECORDS SUMMARY | 2023-10-19 14:42 | External Medical Summary | Summary of Care ---
Author Name Unknown Organization [facility] Address [address] [facility] [address] Phone [phone] Care Team Providers Care Sighter Name Role Phone Sam Clemente PA-C Primary Care Provide r Reason for Visit * Reason Onset Date Comments Test Results 08/19/2023 labs Encounter Details Date Type Department Care Team (Late st Contact Info) Description 08/19/2023 Telephone [place] [address] [place] [address] Tabitha Chauhan CRNP 400 [facility] [place] [address] Test Results (labs) Allergies Active Allergy Reactions Criticality Noted Date [...] Telephone Encounter - Kiesha Westbrook NRCMA - 08/19/2023 3:35 PM EDT Patient notified and states understanding. SILKE Rodriguez * Telephone Encounter - Kiesha Westbrook NRCMA - 08/19/2023 3:33 PM EDT ----- Message from MARY Powell sent at 08/19/2023 1:22 PM EDT ----- Sodium level has decreased since medication change. Cut dose of chlorthalidone in half to 12.5 mg daily. Encouraged alcohol cessation. Continue to monitor blood pressure at home. Have repeat BMP doneagain in 2 weeks. documented in this encounter Plan of Treatment Upcoming Encounters Date Type Department Care Team (Late st Contact Info) Description 09/13/2023 12:45 PM EDT [address] [address] 09/13/2023 2:00 PM EDT Appointment Vascular Lab, [address] [place] [address] 09/20/2023 11:00 AM EDT Office Visit Cardiology, [place] [address] [place] [address] Tabitha [facility] CRNP [facility] [place] [address] 11/15/2024 9:00 AM EDT Office Visit [facility] 27 [facility] [place] [address] Sam Clemente PA-C 27 [facility] [place] [address] Scheduled Procedures Name Priority Associated Diagnoses Date/Ti [...] filedocumented as of this encounter Advance Directives Latest Code Status on File Code Status Date Activated Date Inactivated Comments Full Code 10/17/2018 7:16 PM 10/19/2018 4:24 PM This o rder reflects the patients wishes and were consensually agreed upon. Question Answer Comments Discussion of Advance Directives occurred with: Patient Care Teams Sighter Relationship Specialty Start Date End Date Sam Clemente PA-C [address] [facility] [address] [place] [address] PCP - General Physician Rubber Goods Tester 02/02/23 documented as of this encounter
--- OUTSIDE RECORDS SUMMARY | 2023-10-19 14:42 | External Medical Summary ---
Author Name Unknown Address Unknown Organization K1F:LAB[facility]ATORY [facility] - [address] [place] [address] Laboratory Report Ordering Provider Test Date Status DEBBIE CHILisbeth 07/31/2023 16:01:54 Final Exclude Heart Failure: <300 pg/mL
Diagnose Heart Failure:
Age <50 yr: >450 pg/mL
50-75 yr: >900 pg/mL
>75 yr: >1800 pg/mL
GFR is 30-59 mL/min: >1200 pg/mL or Age- adjusted values
GFR <30 mL/min: do not use, not reliable

Prognostic threshold: 1000 pg/mL Observation Date Value Abnormality Reference (Units ) Status BNP, Pro-hormone 07/31/2023 16:01:54 213 <30 0 (pg/mL) Final Performing Location [facility] - [address] [place] [address]
--- OUTSIDE RECORDS SUMMARY | 2023-10-19 14:42 | External Medical Summary ---
Author Name Unknown Address Unknown Organization K1F:LABORATORY [facility] - [address] [place] [address] Laboratory Report Ordering Provider Test Date Status FLORIN CHI 07/31/2023 18:23:11 Final Observation Date Value Abnormality Reference (Units ) Status Troponin T 07/31/2023 18:23:11 10 <=22 (ng/ L) Final Performing Location LAB[facility]ORY [facility] - [address] [place] [address]
--- OUTSIDE RECORDS SUMMARY | 2023-10-19 14:42 | External Medical Summary ---
Author Name Unknown Address Unknown Organization K01:LABORATORY [facility] - [address] [facility] [address] [place] [id number] Laboratory Report Ordering Provider Test Date Status GREY WOODS 08/31/2023 13:15:00 Final Observation Date Value Abnormality Reference (Units ) Status Bacteria identified in Specimen by Culture 08/31/2023 13:15:00 [id number]^TRICHOP HYTON SPECIES Abnormal Final Trichophyton species
Jazmin t: Culture, Fungus, Derm
Specimen Source: Toe, Right
Specimen Type: Nail
Specimen Date: 08/31/2023 1315
Result Date: 09/07/2023 1255
Result Status: Final result
Abnormal: Yes
Resulting Lab: LABORATORY [facility]
[address]
[place] [address]

CULTURE

Trichophyton species (Abnormal)

null Performing Location LABORATORY [facility] - [address] [facility] [address]
--- OUTSIDE RECORDS SUMMARY | 2023-10-19 14:42 | External Medical Summary ---
Author Name Unknown Address Unknown Organization K1F:[facility] - [address] [facility]. [place] [address] Laboratory Report Ordering Provider Test Date Status FLORIN CHI 07/31/2023 16:01:54 Final Observation Date Value Abnormality Reference (Units ) Status SYNC LEUKOCYTES IN BLOOD BY AUTOMATED COUNT 07/31/2023 16:01:54 9.19 4.00-10.80 (K/uL) Final Segs 07/31/2023 16:01:54 73.7 40.0-75.0 (%) Final Lymphs % 07/31/2023 16:01:54 17.4 Below low normal 18.0-42.0 (%) Final Monos 07/31/2023 16:01:54 7.1 1.0-11.0 (%) Final Eosinophils 07/31/2023 16:01:54 1.0 0.0-6.0 (%) Final Basos 07/31/2023 16:01:54 0.4 0.0-2.0 (%) Final Immature Granulocyte, Percent 07/31/2023 16:01:54 0.4 0.0-2.0 (%) Final Absolute Segs 07/31/2023 16:01:54 6.77 1.80-7.70 (K/uL) Final Lymphs, absolute 07/31/2023 16:01:54 1.60 1.00-4.80 (K/ul) Final Monos, Abs 07/31/2023 16:01:54 0.65 0.00-1.10 (K/uL) Final Eos, Abs 07/31/2023 16:01:54 0.09 0.00-0.70 (K/uL) Final Basos, Abs 07/31/2023 16:01:54 0.04 0.00-0.20 (K/uL) Final Immature Granulocytes, Number 07/31/2023 16:01:54 0.04 0.00-0.20 (K/uL) Final Performing Location LABORATORY [facility] - [address] [facility] [place] [address]
--- OUTSIDE RECORDS SUMMARY | 2023-10-19 14:42 | External Medical Summary | Summary of Care ---
Author Name Unknown Organization [facility] Address [address] [facility] [place] [address] Phone [phone] Care Team Providers Care Manager Technical Services Name Role Phone Sam Clemente PA-C Primary [...] 08/31/2023 1:00 PM EDT Office Visit Podiatry, [facility] 400 [facility] [place] [address] Mari Alaniz, [place] 400 [facility] [place] [phone] Onychomycosis* Allergies Active Allergy Reactions Criticality Noted [...] extremities. PT pulses 2/4 to BL extremities. ACOUSTICAL TILE PATTERNMAKER is brisk to all digits of BL [...] in this encounter Nursing Notes * Adriane aFir LPN - 08/31/2023 1:00 PM EDT Chief [...] 09/13/2023 12:45 PM EDT Appointment Cardiac Studies, [address] [place] [address] 09/13/2023 2:00 PM EDT Appointment Vascular Lab, [address] [place] [address] 09/20/2023 11:00 AM EDT Office Visit Cardiology, [address] [place] [address] Tabitha [facility]auhan CRNP [facility] [place] [address] 11/15/2024 9:00 AM EDT [facility] [place] 27 [facility] [place] [address] Sam Clemente PA-C [address] [facility] [address] [place] [address] Scheduled Orders Name Type Priority Associated Diagnoses [...] Advance Directives occurred with: Patient Care Teams Manager Technical Services Relationship Specialty Start Date End Date Sam Clemente PA-C [address] [facility] [address] [place] [address] PCP - General Physician Sanitation Tank Washer 02/02/23 documented as of this encounter
--- OUTSIDE RECORDS SUMMARY | 2023-10-19 14:42 | External Medical Summary | Summary of Care ---
Author Name Unknown Organization [facility] Address [address] [facility] [place] [address] Phone [phone] Care Team Providers Care Book Editor Name Role Phone Whitney Clemente PA-C Primary Care Provide r Reason for Visit * Reason Comments eRx-Medication Refill Encounter Details Date Type Department Care Team (Late st Contact Info) Description 07/30/[address] [place] [address] Gaby Sommer MD [address] [place] [address] Allergies Active Allergy Reactions Criticality Noted Date Comments Penicillins Rash 05/19/2012 documented as of this encounter (statuses as of 08/01/2023) Medications Medication Sig Dispensed Refills Start Date End Date Status [facility] MISC Custom Molded Orthotics 1 Each 0 10/23/2019 Active Pravastatin Sodium 10 MG Oral Tablet (Pravachol) TAKE ONE TABLET BY MOUTH EVERY DAY IN THE MORNING. 90 Tablet 3 08/13/2022 Active hydroCHLOROthiazi de 25 MG Oral Tablet (Hydrodiuril)Magdalena cations:HTN, goal below 140/90 TAKE ONE TABLET BY MOUTH ONCE DAILY 90 Tablet 3 08/13/2022 Active Omeprazole 20 MG Oral Capsule Delayed Release (PriLOSEC)Indicat ions:GERD without esophagitis Take 1 capsule by mouth 60 minutes before the first meal of the day 30 Capsule 11 10/11/2022 Active Tamsulosin HCl 0.4 MG Oral Capsule (Flomax)Indicatio ns:Nocturia Take 1 Capsule by mouth in the morning. 90 Capsule 3 02/02/2023 Active Nebivolol HCl 20 MG Oral Tablet (Bystolic)Indicat ions:HTN, goal below 140/90 Take 0.5 Tablets by mouth in the morning and 0.5 Tablets before bedtime. 90 Tablet 1 02/16/2023 Active Lisinopril 40 MG Oral TabletIndications :HTN, goal below 140/90 Take 1 Tablet by mouth in the morning. 90 Tablet 3 05/09/2023 Active Eliquis 5 MG Oral Tablet (Apixaban) TAKE ONE TABLET BY MOUTH TWICE DAILY 180 Tablet 0 08/01/2023 Active Eliquis 5 MG Oral Tablet (Apixaban) TAKE ONE TABLET BY MOUTH TWICE DAILY 180 Tablet 3 07/17/2022 4 Discontinued documented as of this encounter (statuses [...] Telephone Encounter - Whitney Clemente PA-C - 08/01/2023 8:24 AM EDT Signed Prescriptions: Disp Refills Eliquis 5 MG Oral Tablet (Apixaban) 180 Ta*0 Sig: TAKE ONE TABLET BY MOUTH TWICE DAILY Authorizing Provider: WHITNEY CLEMENTE * Telephone Encounter - Sylwia Joseph LPN - 08/01/2023 8:07 AM EDTPending Prescriptions: Disp Refills Eliquis 5 MG Oral Tablet [Pharmacy Med Nam*180 Ta*0 Sig: TAKE ONE TABLET BY MOUTH TWICE DAILY * Telephone Encounter - Sylwia Joseph LPN - 08/01/2023 8:06 AM EDT Pending Prescriptions: Disp Refills Eliquis 5 MG Oral Tablet (Apixaban) [Phar*180 Ta*0 Sig: TAKE ONE TABLET BY MOUTH TWICE DAILY Last Visit: 05/17/2023 (in office), Visit date not found (telemedicine) Next Visit: 08/04/2023 Last date the medication was ordered: 07/17/22 Patient Active Problem List Diagnosis Code HTN, goal below 140/90 I10 Tobacco use disorder F17.200 Personal history of skin cancer Z85.828 Hereditary and idiopathic peripheral neuropathy G60.9 History of pulmonary embolism Z86.711 History of DVT (deep vein thrombosis) Z86.718 Prediabetes R73.03 Mixed hyperlipidemia E78.2 Gastroesophageal reflux disease without esophagitis K21.9 Labs: Lab Results Component Value Date/Time CREATININE - [facility] 0.8 07/31/2023 04:01 PM CREATININE - [facility] 1.0 03/20/2019 02:42 PM CREATININE, RANDOM URINE - [facility] 48 07/23/2022 10:17 AM CREATININE-OUTSIDE LAB 0.88 01/21/2022 12:00 AM Lab Results Component Value Date/Time POTASSIUM - [facility] 3.9 07/31/2023 04:01 PM POTASSIUM - [facility] 4.3 03/20/2019 02:42 PM POTASSIUM-OUTSIDE LAB 4.0 01/21/2022 12:00 AM Lab Results Component Value Date/Time TSH - [facility] 2.22 10/19/2018 09:21 AM Lab Results Component Value Date/Time LDL CHOLESTEROL (CALCULATED) - [facility] 90 07/21/2023 08:16 AM LDL CHOLESTEROL (CALCULATED) - [facility] 87 07/23/2022 10:15 AM LDL CHOLESTEROL (CALCULATED) - [facility] 113 03/20/2019 02:42 PM LDL CHOLESTEROL (CALCULATED) - [facility] 113 11/01/2018 09:21 AM LDL CHOLESTEROL (DIRECT MEASURE) - [facility] 80 01/07/2021 02:10 PM Lab Results Component Value Date/Time ALT - [facility] 35 07/31/2023 04:01 PM ALT - [facility] 35 03/20/2019 02:42 PM Hemoglobin AIC Results: Lab Results Component Value Date/Time HEMOGLOBIN A1C - [facility] 5.9 (H) 07/21/2023 08:16 AM HEMOGLOBIN A1C - [facility] 5.7 (H) 07/23/2022 10:15 AM HEMOGLOBIN A1C - [facility] 5.9 (H) 07/14/2021 02:16 PM * Telephone Encounter - Interface, E-Rx Ss Inbound - 08/01/2023 6:04 AM EDT Pending Prescriptions: Disp Refills Eliquis 5 MG Oral Tablet [Pharmacy Med Nam*180 Ta*0 Sig: TAKE ONE TABLET BY MOUTH TWICE DAILY documented in this encounter Plan of Treatment Upcoming Encounters Date Type Department Care Team (Late st Contact Info) Description 08/04/2023 9:20 AM EDT Office Visit Family Practice, [place] [address] [facility] [address] [place] [address] Whitney Clemente PA-C [address] [facility] [address] [place] [address] 08/09/2023 11:30 AM EDT Office Visit Cardiology, [place] [address] [place] [address] Tabitha Bruner CRNP 400 [facility] [place] [address] Scheduled Procedures Name Priority Associated Diagnoses Date/Ti [...] Tdap) 09/17/2018 09/17/2008 COVID-19 Vaccine (1 - 2022-24 season) 2022 Depression Screening 07/17/2023 07/16/2022 Influenza [...] Advance Directives occurred with: Patient Care Teams Book Editor Relationship Specialty Start Date End Date Whitney Clemente PA-C [address] [facility] [address] [place] [address] PCP - General Physician Filtrose Crusher 02/02/23 documented as of this encounter
--- OUTSIDE RECORDS SUMMARY | 2023-10-19 14:42 | External Medical Summary ---
Author Name Unknown Address Unknown Organization K01:LABORATORY [facility] - [address] [facility] [address] [place] [address] Laboratory Report Ordering Provider Test Date Status BRIE MCBRIDE 08/18/2023 08:36:24 Final Observation Date Value Abnormality Reference (Units ) Status BUN 08/18/2023 08:36:24 16 6-20 (mg/dL) Final Creatinine 08/18/2023 08:36:24 0.8 0.6-1.2 (mg/dL) Final Glomerular filtration rate/1.73 sq M.predicted [Volume Rate/Area] in Serum, Plasma or Blood by Creatinine-based formula (CKD-EPI) 08/18/2023 08:36:24 >90 >=60 (mL/min) Final eGFR is calculated based on the CKD-EPI 2020 equation Sodium 08/18/2023 08:36:24 122 Below low normal 135 -146 (mmol/L) Final Potassium 08/18/2023 08:36:24 4.2 3.5-5.1 (m mol/L) Final Cl 08/18/2023 08:36:24 86 Below low normal 98- 107 (mmol/L) Final CO2 08/18/2023 08:36:24 27 22-32 (mmo l/L) Final Anion gap 08/18/2023 08:36:24 9 7-15 (mmol /L) Final Glucose 08/18/2023 08:36:24 122 Above high normal 70 -120 (mg/dL) Final Calcium 08/18/2023 08:36:24 9.5 8.4-10.2 ( mg/dL) Final Performing Location [facility]ORY [facility] - [address] [facility] [address] [place] [address]
--- OUTSIDE RECORDS SUMMARY | 2023-10-19 14:42 | External Medical Summary | Summary of Care ---
Author Name Unknown Organization [facility] Address [address] [facility] [place] [address] Phone [phone] Care Team Providers Care Lab Support Tech Name Role Phone Sam Clemente PA-C Primary Care Provide r Encounter Details Date Type Department Care Team (Late st Contact Info) Description 08/15/2023 Orders Only PATIENT PORTAL DO NOT DELETE THIS DEPT USED BY [place] [address] Allergies Active Allergy Reactions Criticality Noted Date Comments Penicillins Rash 05/19/2012 documented as of this encounter (statuses as of 08/15/2023) Medications Medication Sig Dispensed Refills Start Date [...] in the morning. 90 Tablet 3 08/09/2023 Active documented as of this encounter (statuses as of 08/15/2023) Active Problems Problem Noted Date Diagnosed Date [...] as of this encounter (statuses as of 08/15/2023) Resolved Problems Problem Noted Date Diagnosed Date Resolved Date Elevated hemoglobin 07/15/2021 04/14/19 24 Personal history of alcoholism 07/13/2021 04/14/2023 Stage 2 chronic kidney disease 01/02/2021 07/10/2021 Loss of weight 01/02/2021 01/20/2022 Pulmonary embolism 10/17/2018 0 Acute deep vein thrombosis ( DVT) of left lower extremity 10/17/2018 04/24/2019 documented as of this encounter (statuses as of 08/15/2023) Immunizations Name Administration Dates Next Due TDAP [...] 09/13/2023 12:45 PM EDT Appointment Cardiac Studies, [address] [place] [address] 09/13/2023 2:00 PM EDT Appointment Vascular Lab, [facility] [address] [place] [address] 09/20/2023 11:00 AM EDT Office Visit Cardiology, [place] [address] [place] [address] Tabitha Chauhan CRNP [address] [place] [address] 11/15/2024 9:00 AM EDT Office Visit Family [place], [place] [address] [facility] [address] [place] [address] Sam Clemente PA-C [address] [facility] [address] [place] [address] Scheduled Procedures Name Priority Associated Diagnoses Date/Ti [...] Advance Directives occurred with: Patient Care Teams Lab Support Tech Relationship Specialty Start Date End Date Sam Clemente PA-C 27 [facility] [place] [address] PCP - General Physician Global Clinical Leader 02/02/23 documented as of this encounter
--- OUTSIDE RECORDS SUMMARY | 2023-10-19 14:42 | External Medical Summary ---
Author Name Unknown Address Unknown Organization K1F:LABORATORY [facility] - [address] [facility] [place] [address] Laboratory Report Ordering Provider Test Date Status FLORIN CHI 07/31/2023 16:01:54 Final Observation Date Value Abnormality Reference (Units ) Status BUN 07/31/2023 16:01:54 10 6-20 (mg/dL) Final Creatinine 07/31/2023 16:01:54 0.8 0.6-1.2 (mg/dL) Final Glomerular filtration rate/1.73 sq M.predicted [Volume Rate/Area] in Serum, Plasma or Blood by Creatinine-based formula (CKD-EPI) 07/31/2023 16:01:54 >90 >=60 (mL/min) Final eGFR is calculated based on the CKD-EPI 2020 equation Sodium 07/31/2023 16:01:54 131 Below low normal 135 -146 (mmol/L) Final Potassium 07/31/2023 16:01:54 3.9 3.5-5.1 (m mol/L) Final Cl 07/31/2023 16:01:54 95 Below low normal 98- 107 (mmol/L) Final CO2 07/31/2023 16:01:54 20 Below low normal 22- 32 (mmol/L) Final Anion gap 07/31/2023 16:01:54 16 Above high normal 7- 15 (mmol/L) Final Glucose 07/31/2023 16:01:54 108 70-120 (mg /dL) Final Albumin 07/31/2023 16:01:54 4.2 3.8-5.0 (g /dL) Final AST (Aspartate aminotransferase) 07/31/2023 16:01:54 33 10-50 (U/L) Fin al Result may be falsely elevat ed due to hemolysis. Alk Phos 07/31/2023 16:01:54 85 35-130 (U/ L) Final Bilirubin, Total 07/31/2023 16:01:54 0.4 <=1 .2 (mg/dL) Final Calcium 07/31/2023 16:01:54 9.1 8.4-10.2 ( mg/dL) Final Protein 07/31/2023 16:01:54 7.1 6.0-8.3 (g /dL) Final ALT (Alanine aminotransferase) 07/31/2023 16:01:54 35 10-50 (U/L) Final Performing Location LABORATORY [facility] - [facility] [place] [address]
--- OUTSIDE RECORDS SUMMARY | 2023-10-19 14:42 | External Medical Summary | Summary of Care ---
Author Name Unknown Organization [facility] Address [address] [facility] [address] Phone [phone] Care Team Providers Care Data Warehouse Analyst Name Role Phone Sam Clemente PA-C Primary Care Provide r Reason for Referral * Precert (Within 10 days (routine)) - Pending Review Specialty Diagnoses / Procedures Referred By Contac t Referred To Contact Cardiac Studies Diagnoses HTN, goal below 130/80 Procedures ECHO, COMPLETE (2D), TRANS-THORACIC Tabitha Bruner [facility] [address] [facility] [place] [address] Referral ID Status Reason Start Date Expiration Date Visits Requested Visits Authorized [id number] Pending Review Precert 08/09/[phone] Reason for Visit * Reason Comments NEW PATIENT Rm # 2 * Evaluate & Treat - Unlimited Visits (Within 3 days (urgent)) - Pending Review Specialty Diagnoses / Procedures Referred By Contact Referred To Contact Cardiovascular Medicine / Cardiology Diagnoses Chest pressure Portillo Leon MD [address] [facility] [place] [address] Referral ID Status Reason Start Date Expiration Date Visits Requested Visits Authorized [id number] Pending Review Specialty Services Required 07/31/[phone] Encounter Details Date Type Department Care Team (Late st Contact Info) Description 08/09/2023 11:30 AM EDT Office Visit [facility] [address] [place] [address] Tabitha Bruner CRNP [address] [place] [address] HTN, goal below 130/80* Allergies Active Allergy Reactions Criticality Noted Date Comments Penicillins Rash 05/19/2012 documented as of this encounter (statuses as of 08/09/2023) Medications Medication Sig Dispensed Refills Start Date [...] 3 02/02/2023 Active Lisinopril 40 MG Oral TabletIndications:HT N, goal below 140/90 Take 1 Tablet by mouth in the morning. 90 Tablet 3 05/09/2023 Active Eliquis 5 MG Oral Tablet (Apixaban) TAKE ONE TABLET BY MOUTH TWICE DAILY 180 Tablet 0 08/01/2023 Active Pravastatin Sodium 10 MG Oral Tablet (Pravachol)Indicatio ns:Mixed hyperlipidemia Take 1 Tablet by mouth in the morning. In the morning.. 90 Tablet 3 08/04/2023 Active ProAir HFA 108 (90 Base) MCG/ACT Inhalation Aerosol SolutionIndications: SOB (shortness of breath),Tobacco use disorder Inhale 2 Puffs by mouth every 4 hours as needed for Wheezing. 18 g 3 08/04/2023 Active Chlorthalidone 25 MG Oral Tablet (Hygroton) Take 1 Tablet by mouth in the morning. 90 Tablet 3 08/09/2023 Active hydroCHLOROthiazide 25 MG Oral Tablet (Hydrodiuril)Indicat ions:HTN, goal below 140/90 Take 1 Tablet by mouth in the morning. 90 Tablet 3 08/04/2023 Discontinue d(Medicatio n/Dose Changed) buPROPion HCl ER (SR) 100 MG Oral Tablet Extended Release 12 Hour (Wellbutrin SR)Indications:Tobac co use disorder Take 1 Tablet by mouth in the morning and 1 Tablet before bedtime. 60 Tablet 5 08/04/2023 4 Discontinue d(Medicatio n List Clean Up) Nebivolol HCl 20 MG Oral Tablet (Bystolic)Indication s:HTN, goal below 140/90 TAKE 1/2 TABLET BY MOUTH IN THE MORNING AND 1/2 AT BEDTIME 90 Tablet 1 08/05/2023 4 Discontinue d(Medicatio n/Dose Changed) documented as of this encounter (statuses as of 08/09/2023) Active Problems Problem Noted Date Diagnosed Date [...] as of this encounter (statuses as of 08/09/2023) Resolved Problems Problem Noted Date Diagnosed Date Resolved Date Elevated hemoglobin 07/15/2021 04/14/19 24 Personal history of alcoholism 07/13/2021 04/14/2023 Stage 2 chronic kidney disease 01/02/2021 07/10/2021 Loss of weight 01/02/2021 01/20/2022 Pulmonary embolism 10/17/2018 0 Acute deep vein thrombosis ( DVT) of left lower extremity 10/17/2018 04/24/2019 documented as of this encounter (statuses as of 08/09/2023) Immunizations Name Administration Dates Next Due TDAP [...] Sign Reading Time Taken Comments Blood Pressure 148/75 08/09/2023 11:27 AM EDT Pulse 59 08/09/2023 11:27 AM EDT Temperature - - Respiratory Rate - - Oxygen Saturation - - Inhaled Oxygen Concentration - - Weight 92.1 kg (203 lb) 08/09/2023 11:27 AM EDT Height 180.3 cm (5' 11") 08/09/2023 11:27 AM EDT Body Mass Index 28.31 08/09/2023 11:27 AM EDT documented in this [...] encounter Patient Instructions * Patient Instructions* Tabitha Bruner CRNP - 08/09/2023 11:56 AM EDT We will wean you off the Bystolic. Reduce to 10 mg daily for 1 week. Then reduce to 5 mg daily for 1 week. Then stop altogether. Stop Hydrochlorothiazide. Start Chlorthalidone 25 mg daily. Labs in 1-2 weeks. We need to monitor your low sodium levels closely. Bring your home blood pressure monitor with you to the next visit. documented in this encounter Progress Notes * Tabitha Bruner CRNP - 08/09/2023 11:34 AM EDT [facility] [place], [facility] New Cardiology Patient 08/09/2023 CC: Chest Pressure History of Present Illness: Luis Robledo is a 62 year old year old male who is here as a new [facility] Cardiology patient. Referred by PCP. Patient was in the ED on 08/02 not feeling well. Patient was at home and felt lightheaded/dizzy. Took his BP at home which was 197-107. Called EMS and was treated with [address] head/brain was normal. EKG showed NSR with LVH. Has been taking Bystolic for a long time. Lives at home with his . 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 Not doing much with is free time. He is not active at all. States he probably snores. Notes weight gain. Smoking 1-1.5 PPD. States he is trying to quit and is maybe down to .5 PPD. Drinks 6-8 beer per day. This has been for many years. Denies illicit drug use. Denies excessive NSAID use. Denies a diet high in sodium. Denies OTC cough/cold medications. Uses an arm cuff at home. Family Hx: Mother had hypertension. Denies any personal/family history of rheumatic heart disease, rheumatic fever, scarlet fever, and SCD. REVIEW OF SYSTEMS: See HPI for pertinent positives. All others negative other than those noted in the HPI. CONSTITUTIONAL: No change in weight, No weakness, No fatigue and No fevers, No sweats or chills. PULMONARY: No cough, sputum, or hemoptysis, No [...] Normal balance, No headaches and No weakness. Past Medical History: Patient Active Problem List Diagnosis Code HTN, goal below 140/90 I10 Tobacco use disorder F17.200 Personal history of skin cancer Z85.828 Hereditary and idiopathic peripheral neuropathy G60.9 History of pulmonary embolism Z86.711 History of DVT (deep vein thrombosis) Z86.718 Prediabetes R73.03 Mixed hyperlipidemia E78.2 Gastroesophageal reflux disease without esophagitis K21.9 BPH without obstruction/lower urinary tract symptoms N40.0 Past Surgical History: Procedure Laterality Date COLONOSCOPY W/ BIOPSY (RECTUM) N/A 03/19/2022 diverticulosis sigmoid colon/recall 10 years/COLONOSCOPY FLEXIBLE WITH BIOPSY performed by Rani Rea, at [facility] Family History: Family History Problem Relation Age of Onset Hypertension Mother Diabetes Mother No Past Hx Other unaware of fam hx of skin ca, melanoma, or skin dz Social History: Social History Socioeconomic History Marital status: Spouse [...] ppd as of 08/09/23 Vaping Use Vaping Use: Never used Substance and Sexual Activity Alcohol use: Yes Alcohol/week: 72.0 standard drinks of alcohol Types: 72 12 oz of beer per week Comment: avg 6pk+ per day Drug use: Yes Types: Marijuana Sexual activity: [...] on file Housing Stability: Not on file Allergies: Penicillins Medications: Current Outpatient Medications Medication Sig Dispense Refill [...] mouth in the morning. 90 Tablet 3 Misc. Devices MISC Custom Molded Orthotics 1 Each 0 No current facility-administered medications for this visit. PHYSICAL EXAMINATION: BP 148/75 (BP Site: Left Arm, BP Position: Sitting, BP Cuff Size: Large) | Pulse 59 | Ht 1.803 m (5' 11") | Wt 92.1 kg (203 lb) | BMI 28.31 kg/m | BSA 2.15 m General: No acute distress. A+Ox3. HEENT: [...] insight. DATA Labs & Imaging Reviewed Below: EKG 07/31/2023 NSR 64 bpm LVH IMPRESSION: 62 year old year old male Chest Pressure Lightheaded/Dizzy LVH Hypertension Hyperlipidemia Hx PE -on Eliquis Tobacco Use ETOH Abuse Hyponatremia RECOMMENDATIONS/PLAN: -Symptoms likely secondary to uncontrolled hypertension. I don't think he needs a Zio Monitor at this time. EKG reviewed today. There is evidence of LVH. Will obtain an echocardiogram to assess heartfunction/structure. -Plan to wean Bystolic. It is not a great BP medication. -Decrease to 10 mg daily x 1 week -Then decrease to 5 mg daily x 1 week. -Discontinue after that. -Did not tolerate Coreg in the past. Prior to that was on Metoprolol. -Stop HCTZ -Start Chlorthalidone 25 mg daily. BMP in 1 week. -Will need to monitor his sodium level given his history of hyponatremia -Likely secondary to ETOH use -Consider adding Amlodipine if needed in the future. -Instructed him to bring his home BP cuff to next office visit. -Take his BP 1-2 hours after taking medications. -Vascular renal duplex ordered to rule out renal stenosis. -Consider sleep medicine referral in the future. Disposition: Follow up in 4 weeks. The patient agrees to the above plan and will call with additional questions or concerns. All questions were answered to the patients satisfaction. ER with all emergencies advised. MARY Means [facility] [address] I spent a total of 55 minutes on the date of service in preparation, delivery, and documentation ofthe care provided to Luis Robledo excluding any time spent in the performance of separately billed services. This chart was completed in part utilizing [employer] Speech Voice Recognition Software. Grammatical errors, random word insertions, prounoun errors, and incomplete sentences are an occasional consequence of this system due to software limitations, ambient noise, and hardware issues. Any formal questions or concerns about the content, text, or information contained within the body of this dictation should be directly addressed to the provider for clarification. documented in this encounter Nursing Notes * Kiesha Westbrook NRCMA - 08/09/2023 11:31 AM EDT Examination Room: 2 Name: Luis Robledo Date of : (1960). Reason for Visit: new patient Interim Hospitalization(s): [facility] Ed- 07/31/23 Problems/Concerns: Some GOMEZ. Chest Pain/SOB: no current CP. Medications were updated via: pt memory. My [facility] is a way you can talk to your provider online through e-mail. Would you like to sign up? I can activate it for you? DECLINES Patient was instructed to not get up on the exam table until directed and assisted by their provider; patient is to remain seated in the chair/ wheelchair/ exam table for fall prevention and safety reasons. Patient is aware to have assistance to step down off exam table with personnel. Patient voiced full comprehension of instructions. documented in this encounter Plan of Treatment Upcoming Encounters Date Type Department Care Team (Late st Contact Info) Description 09/13/2023 12:45 PM EDT Appointment [address], [address] [place] [address] 09/13/2023 2:00 PM EDT Appointment Vascular Lab, [address] [place] [address] 09/20/2023 11:00 AM EDT Office Visit Cardiology, [address] [place] [address] Tabitha Bruner CRNP [address] [place] [address] 11/15/2024 9:00 AM EDT Office Visit [facility] [place] [address] [place] [address] Sam Clemente PA-C [address] [place] [address] Scheduled Orders Name Type Priority Associated Diagnoses Orde r Schedule ECHO, COMPLETE (2D), TRANS-THORACIC Echocardiology Routine HTN, goal below 130/80 Expected: 08/09/2023 (Approximate), Expires: 09/07/2025 BASIC METABOLIC PANEL Lab Routine HTN, goal below 130/80 Expected: 08/16/2023, Expires: 08/08/2024 VASC RENAL VASCULAR SCAN-COMPLETE Medical Imaging Routine HTN, goal below 130/80 Expected: 08/09/2023, Expires: 09/07/2024 Scheduled Procedures Name Priority Associated Diagnoses Date/Ti [...] COVID-19 Vaccine (1 - 2022- season) 2022 Influenza Vaccine (FLU shot) (Season [...] goal below 130/80- Primary Unspecified essential hypertension documented in this encounter Advance Directives Latest Code Status on File Code Status Date Activated Date Inactivated Comments Full Code 10/17/2018 7:16 PM 10/19/2018 4:24 PM This o rder reflects the patients wishes and were consensually agreed upon. Question Answer Comments Discussion of Advance Directives occurred with: Patient Care Teams Data Warehouse Analyst Relationship Specialty Start Date End Date Sam Clemente PA-C [address] [place] [address] PCP - General Physician Ammonium Sulfate Operator 02/02/23 documented as of this encounter
--- OUTSIDE RECORDS SUMMARY | 2023-10-19 14:42 | External Medical Summary ---
Author Name Unknown Address Unknown Organization K1F:[facility] - [place] [address] Laboratory Report Ordering Provider Test Date Status FLORIN CHI 07/31/2023 16:01:54 Final Observation Date Value Abnormality Reference (Units ) Status Troponin T 07/31/2023 16:01:54 9 <=22 (ng/ L) Final Performing Location [facility] - [address] [place] [address]
--- OUTSIDE RECORDS SUMMARY | 2023-10-19 14:42 | External Medical Summary ---
Author Name Unknown Address Unknown Organization K1F:[facility] - [address] [place] [address] Laboratory Report Ordering Provider Test Date Status FLORIN CHI 07/31/2023 16:01:54 Final Observation Date Value Abnormality Reference (Units ) Status WBC, Total 07/31/2023 16:01:54 9.19 4.00-10.80 (K/uL) Final RBC 07/31/2023 16:01:54 4.14 4.50-5.25 (M/uL) Final Hemoglobin 07/31/2023 16:01:54 12.9 Below low normal 14.0-16.8 (g/dL) Final HCT 07/31/2023 16:01:54 36.7 Below low normal 40.0-48.4 (%) Final MCV 07/31/2023 16:01:54 88.6 82.0-99.5 (fL) Final MCH 07/31/2023 16:01:54 31.2 27.0-34.0 (pg) Final MCHC 07/31/2023 16:01:54 35.1 32.0-36.0 (g/dL) Final RDW 07/31/2023 16:01:54 12.3 11.5-15.5 (%) Final Platelets 07/31/2023 16:01:54 276 140-400 (K/uL) Final MPV 07/31/2023 16:01:54 9.9 6.6-11.1 (fL) Final Nucleated erythrocytes/100 leukocytes [Ratio] in Blood by Automated count 07/31/2023 16:01:54 0 <=0 (/100 WBCs) Final Performing Location [facility] - [address] [place] [address]
--- OUTSIDE RECORDS SUMMARY | 2023-10-19 14:42 | External Medical Summary | Summary of Care ---
Author Name Unknown Organization [facility] Address [address] [facility] [place] [address] Phone [phone] Care Team Providers Care Strawhat Inspector And Packer Name Role Phone Sam Clemente PA-C Primary Care Provide r Reason for Visit * Reason Comments Outpatient Testing Encounter Details Date Type Department Care Team (Late st Contact Info) Description 08/18/2023 8:40 AM EDT Laboratory [facility], [address] [place] [address] [place] [address] HTN, goal below 130/80 Allergies Active Allergy Reactions Criticality Noted Date Comments Penicillins Rash 05/19/2012 documented as of this encounter (statuses as of 08/18/2023) Medications Medication Sig Dispensed Refills Start Date [...] as of this encounter (statuses as of 08/18/2023) Active Problems Problem Noted Date Diagnosed Date [...] as of this encounter (statuses as of 08/18/2023) Resolved Problems Problem Noted Date Diagnosed Date Resolved Date Elevated hemoglobin 07/15/2021 04/14/19 24 Personal history of alcoholism 07/13/2021 04/14/2023 Stage 2 chronic kidney disease 01/02/2021 07/10/2021 Loss of weight 01/02/2021 01/20/2022 Pulmonary embolism 10/17/2018 0 Acute deep vein thrombosis ( DVT) of left lower extremity 10/17/2018 04/24/2019 documented as of this encounter (statuses as of 08/18/2023) Immunizations Name Administration Dates Next Due TDAP [...] 09/13/2023 12:45 PM EDT Appointment Cardiac Studies, [address] [place] [address] 09/13/2023 2:00 PM EDT Appointment Vascular Lab, [address] [place] [address] 09/20/2023 11:00 AM EDT Office Visit Cardiology, [address] [place] [address] Tabitha Chauhan CRNP [address] [facility] [place] [address] 11/15/2024 9:00 AM EDT Office Visit [facility] [place] [address] [facility] [place] [address] Sam Clemente PA-C [address] [place] [address] Pending Results Name Type Priority Associated Diagnoses Date /Time BASIC METABOLIC PANEL Lab Routine HTN, goal below 130/80 08/18/2023 8:36 AM EDT Scheduled Procedures Name Priority Associated [...] Advance Directives occurred with: Patient Care Teams Strawhat Inspector And Packer Relationship Specialty Start Date End Date Sam Clemente PA-C [address] [facility] [place] [address] PCP - General Physician Supervisor Shipping 02/02/23 documented as of this encounter
--- OUTSIDE RECORDS SUMMARY | 2023-10-19 14:43 | External Medical Summary | Summary of Care ---
Author Name Unknown Organization [facility] Address [address] [facility] [place] [address] Phone [phone] Care Team Providers Care Storm Door Maker Name Role Phone Sam Clemente PA-C Primary Care Provide r Reason for Visit * Reason Comments eRx-Medication Refill Encounter Details Date Type Department Care Team (Late st Contact Info) Description 05/23/2023 Refill [facility] [place] [address] [facility] [place] [phone] Sam Clemente PA-C [address] [facility] [place] [address] Epidermoid cyst Allergies Active Allergy Reactions Criticality Noted Date Comments Penicillins Rash 05/19/2012 documented as of this encounter (statuses as of 05/23/2023) Medications Medication Sig Dispensed Refills Start Date [...] 08/13/2022 Active hydroCHLOROthiazide 25 MG Oral Tablet (Hydrodiuril)Indica tions:HTN, goal below 140/90 TAKE ONE TABLET BY [...] 1 02/16/2023 Active Lisinopril 40 MG Oral TabletIndications:H TN, goal below 140/90 Take 1 Tablet by mouth in the morning. 90 Tablet 3 05/09/2023 Active Doxycycline Hyclate 100 MG Oral CapsuleIndications: Epidermoid cyst Take 1 Capsule by mouth in the morning and 1 Capsule before bedtime. Do all this for 10 days. Until gone.. 20 Capsule 0 05/17/2023 05/27/2023 Active documented as of this encounter (statuses as of 05/23/2023) Active Problems Problem Noted Date Diagnosed Date [...] as of this encounter (statuses as of 05/23/2023) Resolved Problems Problem Noted Date Diagnosed Date Resolved Date Elevated hemoglobin 07/15/2021 04/14/19 24 Personal history of alcoholism 07/13/2021 04/14/2023 Stage 2 chronic kidney disease 01/02/2021 07/10/2021 Loss of weight 01/02/2021 01/20/2022 Pulmonary embolism 10/17/2018 0 Acute deep vein thrombosis ( DVT) of left lower extremity 10/17/2018 04/24/2019 documented as of this encounter (statuses as of 05/23/2023) Immunizations Name Administration Dates Next Due TDAP [...] encounter Miscellaneous Notes * Telephone Encounter - Urmila Alanis LPN - 05/23/2023 11:38 AM ESTRefused Prescriptions: Disp Refills Doxycycline Hyclate 100 MG Oral Capsule 20 Cap*0 Sig: TAKE ONE CAPSULE BY MOUTH IN THE MORNING AND ONE AT BEDTIMERefused By: FAVIOLA ALANISeason for Refusal: Course of treatment complete * Telephone Encounter - Urmila Alanis LPN - 05/23/2023 11:38 AM EST Treatment completed. No refill needed documented in this encounter Plan of Treatment Upcoming Encounters Date Type Department Care Team (Late st Contact Info) Description 08/04/2023 9:20 AM EDT Office Visit [facility] [place] [address] [facility] [place] [address] Sam Clemente PA-C [address] [facility] [place] [place] [address] Scheduled Procedures Name Priority Associated Diagnoses Date/Ti me COLONOSCOPY FLEXIBLE PROXIMA L DIAGNOSTIC Recall Screening for colon cancer Health Maintenance Due Date Last Done Comments COVID-19 Vaccine (#1) 06/23/1961 Pneumococcal Vaccine: Pediatrics (0 to 5 Years) and At-Risk Patients (6 to 64 Years) (1 - PCV) 1966 Cologuard 2005 Fecal Occult Blood Test 2005 Sigmoidoscopy 2005 Zoster Vaccines (1 of 2) 2010 DTaP,Tdap,and Td Vaccines (2 - Td or Tdap) 09/17/2018 09/17/2008 Influenza Vaccine (FLU shot) (#1) 2022 Depression Screening 07/17/2023 07/16/2022 HbA1c 07/24/2023 07/23/2022, 08/2021, 01/07/2021 GFR 04/12/2024 04/12/2023, 01/09, 07/23/2022, Additional history exists Albumin/Creatinine Ratio 07/23/2025 07/23/2022 Lipid Panel 07/24/2027 07/23/2022, 12/10, 07/14/2021, Additional history exists Colonoscopy 03/19/2032 03/19/2022, 03/19/2022 Colorectal Cancer Screening 03/19/2032 LUNG CANCER SCREENING - USE SMARTSET 35086 Completed 12/13/2017 GARDASIL-HPV IMMUNIZATION SERIES Aged Out [...] as of this encounter Visit Diagnoses Diagnosis Epidermoid cyst Sebaceous cyst documented in this encounter Advance Directives Latest Code Status on File Code Status Date Activated Date Inactivated Comments Full Code 10/17/2018 7:16 PM 10/19/2018 4:24 PM This o rder reflects the patients wishes and were consensually agreed upon. Question Answer Comments Discussion of Advance Directives occurred with: Patient Care Teams Storm Door Maker Relationship Specialty Start Date End Date Sam Clemente PA-C [address] [place] [address] PCP - General Physician Dimpling Machine Operator 02/02/23 documented as of this encounter
--- OUTSIDE RECORDS SUMMARY | 2023-10-19 14:43 | External Medical Summary ---
Author Name Unknown Address Unknown Organization K01:[facility] [place] - [address] [facility] [address] Laboratory Report Ordering Provider Test Date Status WHITNEY,BRACKBILL 07/21/2023 08:16:47 Final Observation Date Value Abnormality Reference (Units ) Status SYNC LEUKOCYTES IN BLOOD BY AUTOMATED COUNT 07/21/2023 08:16:47 8.04 4.00-10.80 (K/uL) Final Segs 07/21/2023 08:16:47 68.7 40.0-75.0 (%) Final Lymphs % 07/21/2023 08:16:47 18.2 18.0-42.0 (%) Final Monos 07/21/2023 08:16:47 10.0 1.0-11.0 (%) Final Eosinophils 07/21/2023 08:16:47 2.2 0.0-6.0 (%) Final Basos 07/21/2023 08:16:47 0.5 0.0-2.0 (%) Final Immature Granulocyte, Percent 07/21/2023 08:16:47 0.4 0.0-2.0 (%) Final Absolute Segs 07/21/2023 08:16:47 5.53 1.80-7.70 (K/uL) Final Lymphs, absolute 07/21/2023 08:16:47 1.46 1.00-4.80 (K/ul) Final Monos, Abs 07/21/2023 08:16:47 0.80 0.00-1.10 (K/uL) Final Eos, Abs 07/21/2023 08:16:47 0.18 0.00-0.70 (K/uL) Final Basos, Abs 07/21/2023 08:16:47 0.04 0.00-0.20 (K/uL) Final Immature Granulocytes, Number 07/21/2023 08:16:47 0.03 0.00-0.20 (K/uL) Final Performing Location [facility] - [address] [facility] [address]
--- OUTSIDE RECORDS SUMMARY | 2023-10-19 14:43 | External Medical Summary | Summary of Care ---
Author Name Unknown Organization [facility] Address [address] [address] Phone [phone] Care Team Providers Care Control Clerk Head Name Role Phone Sam Clemente PA-C Primary Care Provide r Reason for Visit * Reason Comments Outpatient Testing Encounter Details Date Type Department Care Team (Late st Contact Info) Description 07/21/2023 8:20 AM EDT Laboratory [facility] [address] [place] [phone] [place] [address] History of pulmonary embolism; Personal history of alcoholism (HCC); Mixed hyperlipidemia; Prediabetes; Nocturia Allergies Active Allergy Reactions Criticality Noted Date Comments Penicillins Rash 05/19/2012 documented as of this encounter (statuses as of 07/21/2023) Medications Medication Sig Dispensed Refills Start Date [...] as of this encounter (statuses as of 07/21/2023) Active Problems Problem Noted Date Diagnosed Date [...] as of this encounter (statuses as of 07/21/2023) Resolved Problems Problem Noted Date Diagnosed Date Resolved Date Elevated hemoglobin 07/15/2021 04/14/19 24 Personal history of alcoholism 07/13/2021 04/14/2023 Stage 2 chronic kidney disease 01/02/2021 07/10/2021 Loss of weight 01/02/2021 01/20/2022 Pulmonary embolism 10/17/2018 0 Acute deep vein thrombosis ( DVT) of left lower extremity 10/17/2018 04/24/2019 documented as of this encounter (statuses as of 07/21/2023) Immunizations Name Administration Dates Next Due TDAP [...] Description 08/04/2023 9:20 AM EDT Office Visit [facility] [place], [place] [address] [place] [phone] Sam Clemente PA-C [address] [place] [phone] Pending Results Name Type Priority Associated Diagnoses Date /Time CBC WITH WBC DIFFERENTIAL Lab Routine History of pulmonary embolism Personal history of alcoholism (HCC) Mixed hyperlipidemia Prediabetes 07/21/2023 8:16 AM EDT COMPREHENSIVE METABOLIC PANEL Lab Routine Personal history of alcoholism (HCC) Mixed hyperlipidemia Prediabetes 07/21/2023 8:16 AM EDT LIPID PANEL WITH DIRECT LDL IF TG IS HIGH Lab Routine Mixed hyperlipidemia 07/21/2023 8:16 AM EDT HEMOGLOBIN A1C Lab Routine Prediabetes 07/21/2023 8:16 AM EDT PSA Lab Routine Nocturia 07/21/2023 8:16 AM EDT CBC Lab Routine History of pulmonary embolism Personal history of alcoholism (HCC) Mixed hyperlipidemia Prediabetes 07/21/2023 8:16 AM EDT DIFFERENTIAL, AUTOMATED Lab Routine History of pulmonary embolism Personal history of alcoholism (HCC) Mixed hyperlipidemia Prediabetes 07/21/2023 8:16 AM EDT Scheduled Procedures Name Priority Associated [...] COVID-19 Vaccine (1 - 2022- season) 2022 Depression Screening 07/17/2023 07/16/2022 HbA1c 07/24/2023 07/23/2022, 04/0 08/2021, 01/07/2021 Influenza Vaccine (FLU shot) (Season Ended) 2023 GFR 04/12/2024 04/12/2023, 01/09, 07/23/2022, Additional history exists Albumin/Creatinine Ratio 07/23/2025 07/23/2022 Lipid Panel 07/24/2027 07/23/2022, 12/10, 07/14/2021, Additional history exists Colonoscopy 03/19/2032 03/19/2022, 03/19/2022 Colorectal Cancer Screening 03/19/2032 LUNG CANCER SCREENING - USE SMARTSET 65436 Completed 12/13/2017 GARDASIL-HPV IMMUNIZATION SERIES Aged Out [...] as of this encounter Visit Diagnoses Diagnosis History of pulmonary embolism Personal history of pulmonary embolism Personal history of alcoholism (HCC) Personal history of alcoholism Mixed hyperlipidemia Prediabetes Other abnormal glucose Nocturia documented in this encounter Advance Directives Latest Code Status on File Code Status Date Activated Date Inactivated Comments Full Code 10/17/2018 7:16 PM 10/19/2018 4:24 PM This o rder reflects the patients wishes and were consensually agreed upon. Question Answer Comments Discussion of Advance Directives occurred with: Patient Care Teams Control Clerk Head Relationship Specialty Start Date End Date Sam Clemente PA-C [address] [facility] [place] [phone] PCP - General Physician Citrus Fruit Packer 02/02/23 documented as of this encounter
--- OUTSIDE RECORDS SUMMARY | 2023-10-19 14:43 | External Medical Summary | Summary of Care ---
Author Name Unknown Organization [facility] Address [address] [facility] [place] [address] Phone [phone] Care Team Providers Care Hogshead Dumper Name Role Phone Sam Clemente PA-C Primary Care Provide r Reason for Visit * Reason Comments eRx-Medication Refill Encounter Details Date Type Department Care Team (Late st Contact Info) Description 03/08/[address] [place] [address] Gaby Sommer MD [address] [place] [phone] HTN, goal below 140/90 Allergies Active Allergy Reactions Criticality Noted Date Comments Penicillins Rash 05/19/2012 documented as of this encounter (statuses as of 06/21/2023) Medications Medication Sig Dispensed Refills Start Date [...] before bedtime. 90 Tablet 1 02/16/2023 Active documented as of this encounter (statuses as of 06/21/2023) Active Problems Problem Noted Date Diagnosed Date [...] as of this encounter (statuses as of 06/21/2023) Resolved Problems Problem Noted Date Diagnosed Date Resolved Date Elevated hemoglobin 07/15/2021 04/14/19 24 Personal history of alcoholism 07/13/2021 04/14/2023 Stage 2 chronic kidney disease 01/02/2021 07/10/2021 Loss of weight 01/02/2021 01/20/2022 Pulmonary embolism 10/17/2018 0 Acute deep vein thrombosis ( DVT) of left lower extremity 10/17/2018 04/24/2019 documented as of this encounter (statuses as of 06/21/2023) Immunizations Name Administration Dates Next Due TDAP [...] encounter Miscellaneous Notes * Telephone Encounter - Lynne Mason LPN - 06/21/2023 8:39 AM EDTRefused Prescriptions: Disp Refills Lisinopril 40 MG Oral Tablet 90 Tab*0 Sig: TAKE ONE TABLET BY MOUTH ONCE DAILYRefused By: Kirsty MASON for Refusal: Duplicate Request * Telephone Encounter - Lynne Mason LPN - 06/21/2023 8:39 AM EDT Duplicate. * Telephone Encounter - Interface, E-Rx Ss Inbound - 03/14/2023 6:03 AM EST Pending Prescriptions: Disp Refills Lisinopril 40 MG Oral Tablet [Pharmacy Med*90 Tab*0 Sig: TAKE ONE TABLET BY MOUTH ONCE DAILY * Telephone Encounter - Interface, E-Rx Ss Inbound - 03/12/2023 6:03 AM EST Pending Prescriptions: Disp Refills Lisinopril 40 MG Oral Tablet [Pharmacy Med*90 Tab*0 Sig: TAKE ONE TABLET BY MOUTH ONCE DAILY * Telephone Encounter - Interface, E-Rx Ss Inbound - 03/10/2023 6:03 AM EST Pending Prescriptions: Disp Refills Lisinopril 40 MG Oral Tablet [Pharmacy Med*90 Tab*0 Sig: TAKE ONE TABLET BY MOUTH ONCE DAILY documented in this encounter Plan of Treatment Upcoming Encounters Date Type Department Care Team (Late st Contact Info) Description 08/04/2023 9:20 AM EDT Office Visit [facility], [place] [address] [facility] [place] [phone] Sam Clemente PA-C [address] [place] [address] Scheduled Procedures Name Priority Associated Diagnoses Date/Ti [...] - season) 2022 Influenza Vaccine (FLU shot) (#1) 2022 Depression Screening 07/17/2023 07/16/2022 HbA1c 07/24/2023 07/23/2022, 040 08/2021, 01/07/2021 GFR 04/12/2024 04/12/2023, 01/09, 07/23/2022, Additional history exists Albumin/Creatinine Ratio 07/23/2025 07/23/2022 Lipid Panel 07/24/2027 07/23/2022, 12/10, 07/14/2021, Additional history exists Colonoscopy 03/19/2032 03/19/2022, 03/19/2022 Colorectal Cancer Screening 03/19/2032 LUNG CANCER SCREENING - USE SMARTSET 17248 Completed 12/13/2017 GARDASIL-HPV IMMUNIZATION SERIES Aged Out [...] Advance Directives occurred with: Patient Care Teams Hogshead Dumper Relationship Specialty Start Date End Date Sam Clemente PA-C [address] [place] [address] PCP - General Physician Cane Weigher 02/02/23 documented as of this encounter
--- OUTSIDE RECORDS SUMMARY | 2023-10-19 14:43 | External Medical Summary ---
Author Name Unknown Address Unknown Organization [id number]:[facility] [place] [address] [place] [address] [place] [address] Laboratory Report Ordering Provider Test Date Status WHITNEY,BRACKBILL 07/21/2023 08:16:47 Final Observation Date Value Abnormality Reference (Units ) Status WBC, Total 07/21/2023 08:16:47 8.04 4.00-10.80 (K/uL) Final RBC 07/21/2023 08:16:47 4.45 4.50-5.25 (M/uL) Final Hemoglobin 07/21/2023 08:16:47 13.8 Below low normal 14.0-16.8 (g/dL) Final HCT 07/21/2023 08:16:47 40.5 40.0-48.4 (%) Final MCV 07/21/2023 08:16:47 91.0 82.0-99.5 (fL) Final MCH 07/21/2023 08:16:47 31.0 27.0-34.0 (pg) Final MCHC 07/21/2023 08:16:47 34.1 32.0-36.0 (g/dL) Final RDW 07/21/2023 08:16:47 12.6 11.5-15.5 (%) Final Platelets 07/21/2023 08:16:47 291 140-400 (K/uL) Final MPV 07/21/2023 08:16:47 10.2 6.6-11.1 (fL) Final Nucleated erythrocytes/100 leukocytes [Ratio] in Blood by Automated count 07/21/2023 08:16:47 0 <=0 (/100 WBCs) Final Performing Location [facility] [place] [address] [place] [address]
--- OUTSIDE RECORDS SUMMARY | 2023-10-19 14:43 | External Medical Summary ---
Author Name Unknown Address Unknown Organization [id number]:[facility] [place] [address] [facility] [place] [address] Laboratory Report Ordering Provider Test Date Status WHITNEY,BRACKBILL 07/21/2023 08:16:47 Final Observation Date Value Abnormality Reference (Units ) Status BUN 07/21/2023 08:16:47 13 6-20 (mg/dL) Final Creatinine 07/21/2023 08:16:47 1.0 0.6-1.2 (mg/dL) Final Glomerular filtration rate/1.73 sq M.predicted [Volume Rate/Area] in Serum, Plasma or Blood by Creatinine-based formula (CKD-EPI) 07/21/2023 08:16:47 89 >=60 (mL/min) Final eGFR is calculated based on the CKD-EPI 2020 equation Sodium 07/21/2023 08:16:47 130 Below low normal 135 -146 (mmol/L) Final Potassium 07/21/2023 08:16:47 4.7 3.5-5.1 (m mol/L) Final Cl 07/21/2023 08:16:47 93 Below low normal 98- 107 (mmol/L) Final CO2 07/21/2023 08:16:47 26 22-32 (mmo l/L) Final Anion gap 07/21/2023 08:16:47 11 7-15 (mmol /L) Final Glucose 07/21/2023 08:16:47 117 70-120 (mg /dL) Final Albumin 07/21/2023 08:16:47 4.6 3.8-5.0 (g /dL) Final AST (Aspartate aminotransferase) 07/21/2023 08:16:47 20 10-50 (U/L) Fin al Alk Phos 07/21/2023 08:16:47 88 35-130 (U/ L) Final Bilirubin, Total 07/21/2023 08:16:47 0.5 <=1 .2 (mg/dL) Final Calcium 07/21/2023 08:16:47 9.6 8.4-10.2 ( mg/dL) Final Protein 07/21/2023 08:16:47 7.3 6.0-8.3 (g /dL) Final ALT (Alanine aminotransferase) 07/21/2023 08:16:47 28 10-50 (U/L) Teja pickett Performing Location [facility] [place] [facility][note 3] [address] [facility] [address]
--- OUTSIDE RECORDS SUMMARY | 2023-10-19 14:43 | External Medical Summary ---
Author Name Unknown Address Unknown Organization K01:[facility] - [address] [place] [address] Laboratory Report Ordering Provider Test Date Status WHITNEY,BRACKBILL 07/21/2023 08:16:47 Final Observation Date Value Abnormality Reference (Units ) Status PSA 07/21/2023 08:16:47 0.38 <4.10 (ng/ mL) Final Performing Location [facility] - [address] [place] [address]
--- OUTSIDE RECORDS SUMMARY | 2023-10-19 14:43 | External Medical Summary ---
Author Name Unknown Address Unknown Organization [id number][place] [place] [address] [facility] [address] Laboratory Report Ordering Provider Test Date Status WHITNEY,MARINOBILL 07/21/2023 08:16:47 Final Observation Date Value Abnormality Reference (Units ) Status Triglyceride 07/21/2023 08:16:47 181 Above high normal <=174 (mg/dL) Final Triglyceride Reference Range s (mg/dL):
<150 Acceptable
150-174 Borderline high
175-499 High
>=500 Very high Cholesterol 07/21/2023 08:16:47 185 <200 (mg /dL) Final Total Cholesterol Reference Ranges (mg/dL):
<200 Desirable
200-239 Borderline high
>=240 High HDL 07/21/2023 08:16:47 59 >39 (mg/dL ) Final HDL Cholesterol Reference Ra nges (mg/dL):
>=60 High (Desirable)
<50 Low (Undesirable) For Females
<40 Low (Undesirable) For Males NON-HDL CHOLESTEROL 07/21/2023 08:16:47 126 <=159 (mg/dL) Final Non-HDL Cholesterol Referenc e Range (mg/dL):
<100 Target level for high risk ASCVD patient
<130 Optimal for general population
130-159 Near optimal for general population
160-189 Borderline High
190-219 High
>=220 Very High LDL, (calculated) 07/21/2023 08:16:47 90 <= 129 (mg/dL) Final LDL Cholesterol Reference Ra nges (mg/dL):
<70 Target level for high risk ASCVD patient
<100 Optimal for general population
100-129 Near optimal for general population
130-159 Borderline high
160-189 High
>=190 Very high Performing Location [facility] [place] [address] [facility] [address]
--- OUTSIDE RECORDS SUMMARY | 2023-10-19 14:43 | External Medical Summary | Summary of Care ---
Author Name Unknown Organization [facility] Address [address] [facility] [place] [address] Phone [phone] Care Team Providers Care Climatologist Name Role Phone Sam Clemente PA-C Primary Care Provide r Reason for Visit * Reason Onset Date Comments Test Results 07/22/2023 Encounter Details Date Type Department Care Team (Late st Contact Info) Description 07/22/[address] [facility], [place] [address] [facility] [place] [phone] Sam Clemente PA-C [address] [place] [phone] Test Results Allergies Active Allergy Reactions Criticality Noted Date Comments Penicillins Rash 05/19/2012 documented as of this encounter (statuses as of 07/22/2023) Medications Medication Sig Dispensed Refills Start Date [...] as of this encounter (statuses as of 07/22/2023) Active Problems Problem Noted Date Diagnosed Date [...] as of this encounter (statuses as of 07/22/2023) Resolved Problems Problem Noted Date Diagnosed Date Resolved Date Elevated hemoglobin 07/15/2021 04/14/19 24 Personal history of alcoholism 07/13/2021 04/14/2023 Stage 2 chronic kidney disease 01/02/2021 07/10/2021 Loss of weight 01/02/2021 01/20/2022 Pulmonary embolism 10/17/2018 0 Acute deep vein thrombosis ( DVT) of left lower extremity 10/17/2018 04/24/2019 documented as of this encounter (statuses as of 07/22/2023) Immunizations Name Administration Dates Next Due TDAP [...] encounter Miscellaneous Notes * Telephone Encounter - Delonte Caicedo LPN - 07/22/2023 4:29 PM EDT Made pt aware and they expressed understanding. States he will discuss more with [place] at appointment on 08/03. * Telephone Encounter - Sam Clemente PA-C - 07/22/2023 3:55 PM EDT Labs are overall stable. Sodium has been chronically low. Based on smoking history, would qualify for yearly low dose CT scans for lung cancer screening if he is willing. documented in this encounter Plan of Treatment Upcoming Encounters Date Type Department Care Team (Late st Contact Info) Description 08/04/2023 9:20 AM EDT Office Visit [facility] [place] [address] [facility] [place] [address] Sam Clemente PA-C [address] [place] [address] Scheduled Procedures Name Priority Associated Diagnoses Date/Ti [...] 2022- season) 2022 Depression Screening 07/17/2023 07/16/2022 Influenza Vaccine (FLU shot) (Season Ended) 2023 GFR 07/20/2024 07/21/2023, 0 05/2023, 01/18/2023, Additional history exists HbA1c 07/20/2024 07/21/2023, 07/10, 07/14/2021, Additional history exists Albumin/Creatinine Ratio 07/23/2025 07/23/2022 Lipid Panel 07/20/2028 07/21/2023, 07/10, 2021, Additional history exists Colonoscopy 03/19/2032 03/19/2022, 03/19/2022 Colorectal Cancer Screening 03/19/2032 LUNG CANCER SCREENING - USE SMARTSET 54343 Completed 12/13/2017 GARDASIL-HPV IMMUNIZATION SERIES Aged Out [...] Advance Directives occurred with: Patient Care Teams Climatologist Relationship Specialty Start Date End Date Sam Clemente PA-C [address] [place] [address] PCP - General Physician Director Advanced 02/02/23 documented as of this encounter
--- OUTSIDE RECORDS SUMMARY | 2023-10-19 14:43 | External Medical Summary ---
Author Name Unknown Address Unknown Organization K01:[facility] [place] [address] [place] [address] Laboratory Report Ordering Provider Test Date Status WHITNEYALEC DumontL 07/21/2023 08:16:47 Final Observation Date Value Abnormality Reference (Units ) Status HbA1C 07/21/2023 08:16:47 5.9 Above high normal 4. 0-5.6 (%) Final The use of HbA1c to monitor glycemic status is based on normal hemoglobin and HbA composition. This test should not be used in patients with abnormal hemoglobin that affects the half life of the red blood cell or the in vivo glycation rates. Glucose, estimated average 07/21/2023 08:16:47 123 <126 (mg/dL) Final Performing Location [facility] [place] [address] [place] [address]
--- OUTSIDE RECORDS SUMMARY | 2023-10-19 14:44 | External Medical Summary | Summary of Care ---
Author Name Unknown Organization [facility] Address [address] [facility] [place] [address] Phone [phone] Care Team Providers Care Patient Account Liaison Name Role Phone Sam Clemente PA-C Primary Care Provide r Reason for Visit * Reason Comments eRx-Medication Refill Encounter Details Date Type Department Care Team (Late st Contact Info) Description 04/23/2023 Refill Family [facility] [place] [address] [facility] [place] [phone] Jeffery Meehan MD [address] [facility] [place] [phone] Allergies Active Allergy Reactions Criticality Noted Date Comments Penicillins Rash 05/19/2012 documented as of this encounter (statuses as of 04/25/2023) Medications Medication Sig Dispensed Refills Start Date End Date Status [facility]. Devices MISC Custom Molded Orthotics 1 Each [...] the day 30 Capsule 11 10/11/2022 Active Lisinopril 40 MG Oral TabletIndications:H TN, goal below 140/90 TAKE ONE TABLET BY MOUTH ONCE DAILY 90 Tablet 0 12/11/2022 Active Tamsulosin HCl 0.4 MG Oral Capsule (Flomax)Indications :Nocturia Take 1 Capsule by mouth in the morning. 90 Capsule 3 02/02/2023 Active Nebivolol HCl 20 MG Oral Tablet (Bystolic)Indicatio ns:HTN, goal below 140/90 Take 0.5 Tablets by mouth in the morning and 0.5 Tablets before bedtime. 90 Tablet 1 02/16/2023 Active Sulfamethoxazole-Tr imethoprim 800-160 MG Oral Tablet (Bactrim DS) Take 1 Tablet by mouth in the morning and 1 Tablet before bedtime. Do all this for 14 days. Until gone. 28 Tablet 0 04/14/2023 04/28/2023 Active documented as of this encounter (statuses as of 04/25/2023) Active Problems Problem Noted Date Diagnosed Date [...] as of this encounter (statuses as of 04/25/2023) Resolved Problems Problem Noted Date Diagnosed Date Resolved Date Elevated hemoglobin 07/15/2021 04/14/19 24 Personal history of alcoholism 07/13/2021 04/14/2023 Stage 2 chronic kidney disease 01/02/2021 07/10/2021 Loss of weight 01/02/2021 01/20/2022 Pulmonary embolism 10/17/2018 0 Acute deep vein thrombosis ( DVT) of left lower extremity 10/17/2018 04/24/2019 documented as of this encounter (statuses as of 04/25/2023) Immunizations Name Administration Dates Next Due TDAP [...] encounter Miscellaneous Notes * Telephone Encounter - Don Negro LPN - 04/25/2023 10:38 AM ESTRefused Prescriptions: Disp Refills Sulfamethoxazole-Trimethoprim 800-160 MG O*28 Tab*0 Sig: Take 1Tablet by mouth in the morning and 1 Tablet before bedtime. Do all this for 14 days Until gone.Refused By: DON NEGRO LReason for Refusal: Refill Not Appropriate * Telephone Encounter - Interface, E-Rx Ss Inbound - 04/25/2023 6:03 AM EST Pending Prescriptions: Disp Refills Sulfamethoxazole-Trimethoprim 800-160 MG O*28 Tab*0 Sig: Take 1Tablet by mouth in the morning and 1 Tablet before bedtime. Do all this for 14 days. Until gone.---- documented in this encounter Plan of Treatment Upcoming Encounters Date Type Department Care Team (Late st Contact Info) Description 08/04/2023 9:20 AM EDT Office Visit [facility], [place] [address] [place] [phone] Sam Clemente PA-C [address] [place] [address] [phone] Scheduled Procedures Name Priority Associated Diagnoses Date/Ti [...] 03/19/2032 LUNG CANCER SCREENING - USE SMARTSET [id number] Completed 12/13/2017 GARDASIL-HPV IMMUNIZATION SERIES Aged Out [...] Advance Directives occurred with: Patient Care Teams Patient Account Liaison Relationship Specialty Start Date End Date Sam Clemente PA-C [address] [facility] [place] [address] PCP - General Physician Tip Cutter 02/02/23 documented as of this encounter
--- OUTSIDE RECORDS SUMMARY | 2023-10-19 14:44 | External Medical Summary | Summary of Care ---
Author Name Unknown Organization [facility] Address [address] [facility] [place] [address] Phone [phone] Care Team Providers Care Piercing Machine Operator Name Role Phone Sam Clemente PA-C Primary Care Provide r Reason for Visit * Reason Onset Date Comments Medication Refill 05/09/2023 Encounter Details Date Type Department Care Team (Late st Contact Info) Description 05/09/2023 Refill [facility] [place] [address] [facility] [place] [phone] Sam Clemente PA-C [address] [facility] [place] [address] HTN, goal below 140/90 Allergies Active Allergy Reactions Criticality Noted Date Comments Penicillins Rash 05/19/2012 documented as of this encounter (statuses as of 05/09/2023) Medications Medication Sig Dispensed Refills Start Date End Date Status Misc. Devices [facility] Custom Molded Orthotics 1 Each 0 10/23/2019 [...] the morning. 90 Tablet 3 05/09/2023 Active Lisinopril 40 MG Oral TabletIndications :HTN, goal below 140/90 TAKE ONE TABLET BY MOUTH ONCE DAILY 90 Tablet 0 12/11/2022 05/09/2023 Discontinue d(Refill) documented as of this encounter (statuses as of 05/09/2023) Active Problems Problem Noted Date Diagnosed Date [...] as of this encounter (statuses as of 05/09/2023) Resolved Problems Problem Noted Date Diagnosed Date Resolved Date Elevated hemoglobin 07/15/2021 04/14/19 24 Personal history of alcoholism 07/13/2021 04/14/2023 Stage 2 chronic kidney disease 01/02/2021 07/10/2021 Loss of weight 01/02/2021 01/20/2022 Pulmonary embolism 10/17/2018 0 Acute deep vein thrombosis ( DVT) of left lower extremity 10/17/2018 04/24/2019 documented as of this encounter (statuses as of 05/09/2023) Immunizations Name Administration Dates Next Due TDAP [...] encounter Miscellaneous Notes * Telephone Encounter - Mynor Doss [facility] - 05/09/2023 6:06 PM EST Signed Prescriptions: Disp Refills Lisinopril 40 MG Oral Tablet 90 Tab*3 Sig: Take 1 Tablet by mouth in the morning.Authorizing Provider: CORNELIUS MISHRA User: MYNOR DOSS-------- * Telephone Encounter - Che Ruelas CPhT - 05/09/2023 6:02 PM EST Pt only has 2 tablets left, requesting high priority. Did you pend patient's preferred pharmacy and medication before forwarding?yes Pharmacy: [facility] [address] [place] [address] [address] [place] Pending Prescriptions: Disp Refills Lisinopril 40 MG Oral Tablet 90 Tab*0 Sig: Take 1 Tablet by mouth in the morning. Last Visit: 04/14/2023 (in office), Visit date not found (telemedicine) Next Visit: 08/04/2023 If no future appointments scheduled, and last appointment is greater than a year ago, please schedule patient for a follow-up appointment Last date the medication was ordered: 12/11/2022 Is this request for a controlled substance?No Urine Drug Screen:No results found for this or any previous visit. Patient Phone Numbers Labs: Lab Results Component Value Date/Time CREAT 0.8 04/12/2023 05:08 PM CREAT 0.88 01/21/2022 12:00 AM CREAT 1.0 03/20/2019 02:42 PM POTASSIUM 4.0 04/12/2023 05:08 PM POTASSIUM 4.0 01/21/2022 12:00 AM POTASSIUM 4.3 03/20/2019 02:42 PM TSH 2.22 10/19/2018 09:21 AM LDLCALC 87 07/23/2022 10:15 AM LDLCALC 113 03/20/2019 02:42 PM LDLDIRECT 80 01/07/2021 02:10 PM ALT 33 04/12/2023 05:08 PM ALT 35 03/20/2019 02:42 PM HGBA1C 5.7 (H) 07/23/2022 10:15 AM documented in this encounter Plan of Treatment Upcoming Encounters Date Type Department Care Team (Late st Contact Info) Description 08/04/2023 9:20 AM EDT Office Visit [facility] [place] [address] [facility] [address] [place] [phone] Sam Clemente PA-C [address] [facility] [address] [place] [phone] Scheduled Procedures Name Priority Associated Diagnoses Date/Ti [...] Depression Screening 07/17/2023 07/16/2022 HbA1c 07/24/2023 07/23/2022, 0408/2021, 01/07/2021 GFR 04/12/2024 04/12/2023, 01/09, 07/23/2022, Additional history exists Albumin/Creatinine Ratio 07/23/2025 07/23/2022 Lipid Panel 07/24/2027 07/23/2022, 12/10, 07/14/2021, Additional history exists Colonoscopy 03/19/2032 03/19/2022, 03/19/2022 Colorectal Cancer Screening 03/19/2032 LUNG CANCER SCREENING - USE SMARTSET 83482 Completed 12/13/2017 GARDASIL-HPV IMMUNIZATION SERIES Aged Out [...] Advance Directives occurred with: Patient Care Teams Piercing Machine Operator Relationship Specialty Start Date End Date Sam Clemente PA-C [address] [facility] [address] [place] [address] PCP - General Physician Cavalry Scout 02/02/23 documented as of this encounter
--- OUTSIDE RECORDS SUMMARY | 2023-10-19 14:44 | External Medical Summary | Summary of Care ---
Author Name Unknown Organization [facility] Address [address] [facility] [place] [address] Phone [phone] Care Team Providers Care Drum Tender Name Role Phone Sam Clemente PA-C Primary Care Provide r Reason for Visit * Reason Onset Date Comments After Hours Call 05/13/2023 Encounter Details Date Type Department Care Team (Late st Contact Info) Description 05/13/[address] [facility] [address] [place] [address] Hair Ma Jr. [address] [place] [address] After Hours Call Allergies Active Allergy Reactions Criticality Noted Date Comments Penicillins Rash 05/19/2012 documented as of this encounter (statuses as of 05/16/2023) Medications Medication Sig Dispensed Refills Start Date [...] as of this encounter (statuses as of 05/16/2023) Active Problems Problem Noted Date Diagnosed Date [...] as of this encounter (statuses as of 05/16/2023) Resolved Problems Problem Noted Date Diagnosed Date Resolved Date Elevated hemoglobin 07/15/2021 04/14/19 24 Personal history of alcoholism 07/13/2021 04/14/2023 Stage 2 chronic kidney disease 01/02/2021 07/10/2021 Loss of weight 01/02/2021 01/20/2022 Pulmonary embolism 10/17/2018 0 Acute deep vein thrombosis ( DVT) of left lower extremity 10/17/2018 04/24/2019 documented as of this encounter (statuses as of 05/16/2023) Immunizations Name Administration Dates Next Due TDAP [...] Telephone Encounter - Delonte Caicedo LPN - 05/16/2023 11:57 AM EST Left generic message on answering machine asking patient to return our call. Patient has appmnt tomorrow so we can follow up then as well. * Telephone Encounter - Sam Clemente PA-C - 05/16/2023 8:52 AM EST Please follow up and ensure patient is feeling okay. * Telephone Encounter - Hair Ma Jr., DO - 05/13/2023 8:34 PM EST Patient called- took nap in afternoon and work up around 5:30 and took AM meds again (now about 6 pm) Feeling ok- 2 meds are BID and supposed to take. Otherwise no complaints. Continue to take BID meds in AM and PM tomorrow, and take regular AM meds on 05/15 as usual. If having any abnormal feelings,etc, contact the office or go to the ER. Patient acknowledged and voiced understanding. documented in this encounter Plan of Treatment Upcoming Encounters Date Type Department Care Team (Late st Contact Info) Description 05/17/2023 11:40 AM EST Office Visit [facility], [place] [address] [place] [phone] Sam Clemente PA-C [address] [place] [phone] 08/04/2023 9:20 AM EDT Office Visit [facility], [place] [address] [place] [phone] Sam Clemente PA-C [address] [place] [phone] Scheduled Procedures Name Priority Associated Diagnoses Date/Ti [...] 03/19/2032 LUNG CANCER SCREENING - USE SMARTSET 31014 Completed 12/13/2017 GARDASIL-HPV IMMUNIZATION SERIES Aged Out [...] Advance Directives occurred with: Patient Care Teams Drum Tender Relationship Specialty Start Date End Date Sam Clemente PA-C [address] [facility] [place] [address] PCP - General Physician Spa Consultant 02/02/23 documented as of this encounter
--- OUTSIDE RECORDS SUMMARY | 2023-10-19 14:44 | External Medical Summary | Summary of Care ---
Author Name Unknown Organization [facility] Address [address] [facility] [place] [address] Phone [phone] Care Team Providers Care Talent Management Specialist Name Role Phone Sam Clemente PA-C Primary Care Provide r Reason for Visit * Reason Comments Lump Lump on right side o f jaw. Started a a pimple. Has been getting larger. Not really tender to touch. Encounter Details Date Type Department Care Team (Late st Contact Info) Description 05/17/2023 11:40 AM EST Office Visit [facility], [place] [address] [facility] [place] [phone] Sam Clemente PA-C [address] [facility] [place] [phone] Epidermoid cyst* Allergies Active Allergy Reactions Criticality Noted Date Comments Penicillins Rash 05/19/2012 documented as of this encounter (statuses as of 05/17/2023) Medications Medication Sig Dispensed Refills Start Date [...] as of this encounter (statuses as of 05/17/2023) Active Problems Problem Noted Date Diagnosed Date [...] as of this encounter (statuses as of 05/17/2023) Resolved Problems Problem Noted Date Diagnosed Date Resolved Date Elevated hemoglobin 07/15/2021 04/14/19 24 Personal history of alcoholism 07/13/2021 04/14/2023 Stage 2 chronic kidney disease 01/02/2021 07/10/2021 Loss of weight 01/02/2021 01/20/2022 Pulmonary embolism 10/17/2018 0 Acute deep vein thrombosis ( DVT) of left lower extremity 10/17/2018 04/24/2019 documented as of this encounter (statuses as of 05/17/2023) Immunizations Name Administration Dates Next Due TDAP [...] Sign Reading Time Taken Comments Blood Pressure 140/80 05/17/2023 11:19 AM EST Pulse 58 05/17/2023 11:19 AM EST Temperature 36.8 C (98.2 F) 05/17/2023 11:[address] Respiratory Rate 16 05/17/2023 11:19 AM EST Oxygen Saturation 97% 05/17/2023 11:19 AM EST Inhaled Oxygen Concentration - - Weight 93 kg (205 lb) 05/17/2023 11:19 AM EST Height 180.3 cm (5' 11") 05/17/2023 11:19 AM EST Body Mass Index 28.59 05/17/2023 11:19 AM EST documented in this encounter Functional Status Functional [...] (15 years old or older) No 10/18/19 Cognitive Status Response Date of Assessm ent Because of a physical, menta l, or emotional condition, do you have serious difficulty concentrating, remembering, or making decisions? (5 years old or older) No 10/17/2018 documented as of this encounter Progress Notes * Sam Clemente PA-C - 05/17/2023 11:26 AM EST Subjective Luis Robledo is a 62 year old male. Chief Complaint Patient presents with Lump Lump on right side of jaw. Started a a pimple. Has been getting larger. Not really tender to touch. HPI: Luis is a 62 year old male who presents for evaluation of a lump on the right side of the jaw for the past few days. Started out as a pimple. He squeezed it and purulent drainage was expressed. Area is now larger, and he can't get anything to come out. Denies fever. PMH: Patient Active Problem List Diagnosis Code HTN, goal below 140/90 I10 Tobacco use disorder F17.200 Personal history of skin cancer Z85.828 Hereditary and idiopathic peripheral neuropathy G60.9 History of pulmonary embolism Z86.711 History of DVT (deep vein thrombosis) Z86.718 Prediabetes R73.03 Mixed hyperlipidemia E78.2 Gastroesophageal reflux disease without esophagitis K21.9 Current Outpatient Medications Medication Sig Dispense Refill Misc. Devices MISC Custom Molded Orthotics 1 Each 0 Eliquis 5 MG Oral Tablet (Apixaban) TAKE ONE TABLET BY MOUTH TWICE DAILY 180 Tablet 3 Pravastatin Sodium 10 MG Oral Tablet (Pravachol) TAKE ONE TABLET BY MOUTH EVERY DAY IN THE MORNING.90 Tablet 3 hydroCHLOROthiazide 25 MG Oral Tablet (Hydrodiuril) TAKE ONE TABLET BY MOUTH ONCE DAILY 90 Tablet 3 Omeprazole 20 MG Oral Capsule Delayed Release [...] mouth in the morning. 90 Tablet 3 Doxycycline Hyclate 100 MG Oral Capsule Take 1 Capsule by mouth in the morning and 1 Capsule beforebedtime. Do all this for 10 days. Until gone.. 20 Capsule 0 No current facility-administered medications for this visit. Past Medical History: Diagnosis Date Acute deep vein thrombosis (DVT) of left lower extremity (HCC) 10/17/2018 HTN, goal below 140/90 Tobacco use disorder Past Surgical History: Procedure Laterality Date COLONOSCOPY W/ BIOPSY (RECTUM) N/A 03/19/2022 diverticulosis sigmoid colon/recall 10 years/COLONOSCOPY FLEXIBLE WITH BIOPSY performed by Rani Rea DO at ENDOSCOPY [facility] NONE Review of patient's allergies indicates: Allergen [...] file Tobacco Use Smoking status: Every Day Packs/day: 1.00 Years: 35.00 Additional pack years: 0.00 Total pack years: 35.00 Types: Cigarettes Smokeless tobacco: Never Vaping Use [...] discharge, redness, itching and visual disturbance. Respiratory: Negative for cough, chest tightness, shortness of breath and wheezing. Cardiovascular: Negative for chest pain, palpitations and leg swelling. Gastrointestinal: Negative for abdominal pain, blood in stool, constipation, diarrhea, nausea and vomiting. Skin: Negative for color change, pallor, rash and wound. Neurological: Negative for dizziness, syncope, weakness, light-headedness, numbness and headaches. Objective BP 140/80 | Pulse 58 | Temp 36.8 C (98.2 F) (Temporal Artery) | Resp 16 | Ht 1.803 m (5' 11") |Wt 93 kg (205 lb) | SpO2 97% | BMI 28.59 kg/m | BSA 2.16 m Physical Exam Constitutional: General: He is [...] Chest: Chest wall: No tenderness. Abdominal: General: Abdomen is flat. Bowel sounds are normal. There is no distension or abdominal bruit. Palpations: Abdomen is soft. Abdomen is not rigid. There is no hepatomegaly, splenomegaly or mass. Tenderness: There is no abdominal tenderness. There is no right CVA tenderness, left CVA tenderness, guarding or rebound. Negative signs include Olivia's sign and McBurney's sign. Hernia: No hernia is present. Musculoskeletal: Cervical back: Neck supple. Lymphadenopathy: Cervical: No cervical adenopathy. Skin: General: Skin is warm and dry. Coloration: Skin is not jaundiced or pale. Findings: Erythema present. No rash. Comments: Erythematous cyst noted on the right side of the face. No fluctuance noted. Neurological: Mental Status: He is alert. ASSESSMENT/PLAN: Epidermoid cyst (Primary) - Doxycycline Hyclate 100 MG Oral Capsule; Take 1 Capsule by mouth in the morning and 1 Capsule before bedtime. Do all this for 10 days. Until gone.. Treat with doxycycline. Warm compresses encouraged. Contact office if worsening or not improving in 1-2 weeks. Follow Up: Return if symptoms worsen or fail to improve. Sam Clemente PA-C * Delonte Caicedo LPN - 05/17/2023 11:19 AM EST Chief Complaint Patient presents with Lump Lump on right side of jaw. Started a a pimple. Has been getting larger. Not really tender to touch. documented in this encounter Plan of Treatment Upcoming Encounters Date Type Department Care Team (Late st Contact Info) Description 08/04/2023 9:20 AM EDT Office Visit [facility], [place] [address] [facility] [place] [address] Sam Clemente PA-C [address] [facility] [address] [place] [address] Scheduled Procedures Name Priority Associated Diagnoses Date/Ti [...] 03/19/2032 LUNG CANCER SCREENING - USE SMARTSET 40976 Completed 12/13/2017 GARDASIL-HPV IMMUNIZATION SERIES Aged Out [...] of this encounter Visit Diagnoses Diagnosis Epidermoid cyst- Primary Sebaceous cyst documented in this encounter Advance Directives Latest Code Status on File Code Status Date Activated Date Inactivated Comments Full Code 10/17/2018 7:16 PM 10/19/2018 4:24 PM This o rder reflects the patients wishes and were consensually agreed upon. Question Answer Comments Discussion of Advance Directives occurred with: Patient Care Teams Talent Management Specialist Relationship Specialty Start Date End Date Sam Clemente PA-C [address] [facility] [address] [place] [address] PCP - General Physician Talend Etl Developer 02/02/23 documented as of this encounter
--- NOTE | 2023-10-19 14:49 | Hospitalist Progress Note ---
Date of Service October 19, 2023 Assessment & Plan (1) Hyponatremia: (2) Prostatitis, acute: (3) Chronic anticoagulation: (4) Alcohol abuse: (5) Alcohol withdrawal syndrome without complication: Plan Patient remains critically ill in need of hospitalization due to severe hypona tremia that was symptomatic upon presentation as well as high risk for alcohol withdrawal. Reviewed urology recommendations for ongoing antibiotics and following cultures Reviewed nephrology recommendations for additional Lasix and urea Continue to monitor sodium levels and renal function Continue current antibiotic regimen Counseled patient on cutting back his alcohol and beer intake completely Continue to monitor for alcohol withdrawal benzodiazepines as needed. Admission and Anticipated Discharge Date Admission Date: October 19, 2023 Subjective Patient feeling significantly improved Physical Exam Physical Exam: Constitutional: Alert, no acute distress HEENT: Mucous membranes moist. Lungs: Clear to auscultation, decreased, no wheezes rales or rhonchi CV: S1-S2, regular Abdomen: Soft, nontender, nondistended Extremities: No significant edema Neuro: No focal deficits no tremor or significant signs of alcohol withdrawal Psych: Cooperative, normal mood Results & Data Results & Data Vital Signs (Past 12 Hours) Vital Signs Temp Pulse Pulse Resp BP Pulse Ox O2 Del Method 10/19/23 12:52 80 10/19/23 12:27 Room Air 10/19/23 10:09 36.9 C 74 20 138/71 97 Room Air 10/19/23 08:44 67 18 152/92 H 99 Room Air 10/19/23 07:25 60 10/19/23 06:18 60 18 167/85 H 95 Room Air 10/19/23 03:20 67 16 154/84 H 97 Room Air Diagnostic Findings Reviewed imaging, laboratory and diagnostic studies. Pertinent findings as below. Sodium plateaued at 122
[2023-10-19] MEDS: UREA (UREA-NA) 15 GM PACK PO SCH (15:18)
[2023-10-19] MEDS: FUROSEMIDE INJ 20 MG/2 ML VIAL IV ONE ×2 (15:19→15:35)
--- OUTSIDE RECORDS SUMMARY | 2023-10-19 16:43 | External Medical Summary | Summary of Care ---
Author Name Unknown Organization [facility] Address [address] [facility] [address] Phone [phone] Care Team Providers Care Contract Loader Name Role Phone Whitney Clemente PA-C Primary Care Provide r Reason for Referral * Evaluate & Treat - Unlimited Visits (Within 3 days (urgent)) - Pending Review Specialty Diagnoses / Procedures Referred By Timi aguilar Referred To Contact Urology Diagnoses Dysuria Hair Henderson PA-C [email or web address] [place] [phone] Referral ID Status Reason Start Date Expiration Date Visits Requested Visits Authorized [id number] Pending Review Specialty Services Required 10/18/[phone] Question Answer Referral Priority Within 3 days (urgent) Where should this appointment be scheduled? [facility] What is the patient being referred for? Urinary Concerns Reason for Visit * Reason Onset Date Comments Referral 10/18/2023 Encounter Details Date Type Department Care Team (Late st Contact Info) Description 10/18/2023 Telephone [facility] [place] [email or web address] [place] [address] Hair Henderson PA-C [email or web address] [place] [phone] Referral Allergies [...] Note - Don Negro LPN - 10/18/2023 2:01 PM EDTAddended by: DON NEGRO on: 10/18/2023 02:01 PM Modules accepted: Orders * Telephone Encounter - Adriana Lorenz LPN - 10/18/2023 1:58 PM EDT Please fax referral to [phone] [facility] Urology * Telephone Encounter - Vivian Vera OSA - 10/18/2023 1:39 PM EDT Patient is asking for referral to be changed to urgent. * Addendum Note - Whitney Clemente PA-C [...] He is attempting to see urology in [facility] but no referral was placed. Can you please place a referral for patient to have continuation of care? Thank you! documented in this encounter Plan of Treatment Upcoming Encounters Date Type Department Care Team (Late st Contact Info) Description 11/16/2023 9:30 AM EDT [facility] [address] [place] [address] [place] [address] Tabitha Chauhan CRNP [address] [place] [address] 10/19/2024 9:00 AM EDT [facility] [place] [address] Whitney Clemente PA-C [address] [facility] [place] [address] Scheduled Procedures Name Priority Associated Diagnoses Date/Ti me COLONOSCOPY FLEXIBLE PROXIMA L DIAGNOSTIC Recall Screening for colon cancer Scheduled Referrals Name Type Priority Associated Diagnoses Orde r Schedule ADULT/PEDS UROLOGY REFERRAL OP Referral Within 3 days (urgent) Dysuria Ordered: 10/18/2023 Health Maintenance Due Date [...] Advance Directives occurred with: Patient Care Teams Contract Loader Relationship Specialty Start Date End Date Whitney Clemente PA-C [address] [facility] [address] [place] [address] PCP - General Physician Mind Reader 02/02/23 documented as of this encounter
--- OUTSIDE RECORDS SUMMARY | 2023-10-19 16:43 | External Medical Summary | Summary of Care ---
Author Name Unknown Organization [facility] [address] [facility] [address] Phone [phone] Care Team Providers Care Field Worker Name Role Phone Whitney Clemente PA-C Primary Care Provide r Reason for Referral * Evaluate & Treat - Unlimited Visits (Within 3 days (urgent)) - Pending Review Specialty Diagnoses / Procedures Referred By Timi aguilar Referred To Contact Urology Diagnoses Dysuria Hair Henderson PA-C [address] [place] [phone] Referral ID Status Reason Start Date Expiration Date Visits Requested Visits Authorized [id number] Pending Review Specialty Services Required 10/18/[phone] Question Answer Referral Priority Within 3 days (urgent) Where should this appointment be scheduled? [facility] What is the patient being referred for? Urinary Concerns Reason for Visit * Reason Onset Date Comments Referral 10/18/2023 Encounter Details Date Type Department Care Team (Late st Contact Info) Description 10/18/2023 Telephone [facility] [address] [place] [address] Hair Henderson PA-C [address] [place] [phone] Referral Allergies [...] encounter Miscellaneous Notes * Telephone Encounter - Vivian Vera OSA - 10/18/2023 2:11 PM EDT I called Tej Whiting([phone]) and got the same number as above ([phone]) because patient was told that the [phone] # is not working. Faxed the referral, interactive facesheet, 10/11/23 ov note from urgent care & 10/11/23 urine results to the [phone] #. I marked urgent referral on the coversheet. Received confirmation that the fax went through & notified patient. He will call them to schedule himself. I told him to call us if heneeds further assistance. * Addendum Note - Don Negro LPN - 10/18/2023 2:01 PM EDTAddended by: DON NEGRO on: 10/18/2023 02:01 PM Modules accepted: Orders * Telephone Encounter - Adriana Lorenz LPN - 10/18/2023 1:58 PM EDT Please fax referral to [phone] [facility] Urology * Telephone Encounter - Vivian [...] He is attempting to see urology in [facility] but no referral was placed. Can you please place a referral for patient to have continuation of care? Thank you! documented in this encounter Plan of Treatment Upcoming Encounters Date Type Department Care Team (Late st Contact Info) Description 11/16/2023 9:30 AM EDT [facility] [address] [place] [address] Tabitha Chauhan CRNP [address] [place] [address] 10/19/2024 9:00 AM EDT Office Visit Family [facility] [place] [address] [facility] [place] [address] Whitney Clemente PA-C [address] [facility] [address] [place] [address] Scheduled Procedures Name Priority Associated Diagnoses Date/Ti [...] Advance Directives occurred with: Patient Care Teams Field Worker Relationship Specialty Start Date End Date Whitney Clemente PA-C [address] [facility] [address] [place] [address] PCP - General Physician Fitter/Welder 02/02/23 documented as of this encounter
--- OUTSIDE RECORDS SUMMARY | 2023-10-19 16:43 | External Medical Summary | Summary of Care ---
Author Name Unknown Organization [facility] Address [address] [address] Phone [phone] Care Team Providers Care Audiology Assistant Name Role Phone Whitney Clemente PA-C Primary Care Provide r Reason for Referral * Evaluate & Treat - Unlimited Visits (Within 10 days (routine)) - Pending Review Specialty Diagnoses / Procedures Referred By Timi aguilar Referred To Contact Urology Diagnoses Dysuria Hair Henderson PA-C [address] [place] [phone] Referral ID Status Reason Start Date Expiration Date Visits Requested Visits Authorized [id number] Pending Review Specialty Services Required 10/18/[phone] Question Answer Referral Priority Within 10 days (routine) Where should this appointment be scheduled? [facility] What is the patient being referred for? Urinary Concerns Reason for Visit * Reason Onset Date Comments Referral 10/18/2023 Encounter Details Date Type Department Care Team (Late st Contact Info) Description [facility] [place] [address] [place] [phone] Hair Henderson PA-C [address] [place] [phone] Referral Allergies [...] He is attempting to see urology in [facility] but no referral was placed. Can you please place a referral for patient to have continuation of care? Thank you! documented in this encounter Plan of Treatment Upcoming Encounters Date Type Department Care Team (Late st Contact Info) Description 11/16/2023 9:30 AM EDT Office Visit Cardiology, [place] [address] [place] [id number] Tabitha Chauhan CRNP [address] [place] [id number] 10/19/2024 9:00 AM EDT Office Visit [facility], [place] [address] [address] [facility] [place] [phone] Whitney Clemente PA-C [address] [place] [address] Scheduled Procedures Name Priority Associated Diagnoses Date/Ti [...] Advance Directives occurred with: Patient Care Teams Audiology Assistant Relationship Specialty Start Date End Date Whitney Clemente PA-C [address] [place] [id number] PCP - General Physician Silk Hanger 02/02/23 documented as of this encounter
--- OUTSIDE RECORDS SUMMARY | 2023-10-19 16:43 | External Medical Summary | Summary of Care ---
Author Name Unknown Organization [facility] Address [address] [address] [place] [address] Phone [phone] Care Team Providers Care Banding Machine Operator Name Role Phone Whitney Clemente PA-C Primary Care Provide r Reason for Referral * Evaluate & Treat - Unlimited Visits (Within 10 days (routine)) - Pending Review Specialty Diagnoses / Procedures Referred By Timi aguilar Referred To Contact Urology Diagnoses Dysuria Hair Henderson PA-C [address] [place] [phone] Referral ID Status Reason Start Date Expiration Date Visits Requested Visits Authorized [id number] Pending Review Specialty Services Required 10/18/[phone] Question Answer Referral Priority Within 10 days (routine) Where should this appointment be scheduled? [facility] What is the patient being referred for? Urinary Concerns Reason for Visit * Reason Onset Date Comments Referral 10/18/2023 Encounter Details Date Type Department Care Team (Late st Contact Info) Description [facility] [place] [address] [place] [address] Hair Henderson PA-C [address] [place] [phone] Referral Allergies [...] encounter Miscellaneous Notes * Telephone Encounter - Adriana Lorenz LPN - 10/18/2023 1:58 PM EDT Please fax referral to [phone] [facility] Urology * Telephone Encounter - Vivian [...] He is attempting to see urology in [facility] but no referral was placed. Can you please place a referral for patient to have continuation of care? Thank you! documented in this encounter Plan of Treatment Upcoming Encounters Date Type Department Care Team (Late st Contact Info) Description 11/16/2023 9:30 AM EDT Office Visit Cardiology, [place] [address] [place] [phone] Tabitha Chauhan CRNP [address] [place] [phone] 10/19/2024 9:00 AM EDT Office Visit [facility], [place] [address] [place] [address] Whitney Clemente PA-C [address] [place] [address] Scheduled Procedures Name Priority Associated Diagnoses Date/Ti [...] Advance Directives occurred with: Patient Care Teams Banding Machine Operator Relationship Specialty Start Date End Date Whitney Clemente PA-C [address] [place] [phone] PCP - General Physician Clinical Biostatistician 02/02/23 documented as of this encounter
[2023-10-19 19:52] LABS: BUN Creatinine Ratio 24.4 (10-20); Calcium 9.3 mg/dl (8.6-10.3); Creatinine Clr Calc Pharmacy 68.6 ml/min; Est GFR (African American) 75.4 ml/min; Est GFR (Non-African American) 65.1 ml/min; Potassium 4.1 mmol/L (3.5-5.1)
[2023-10-19] MEDS: cefTRIAXone SODIUM 2,000 MG/50 ML BAG IV SCH (20:49)
[2023-10-19] MEDS: METOPROLOL SUCC 25MG EXT REL TAB PO SCH (20:50)
[2023-10-19] MEDS ORDERED: UREA (UREA-NA) 15 GM PACK PO SCH (21:00)
[2023-10-20 08:53] LABS: BUN Creatinine Ratio 28.3 (10-20); Creatinine Clr Calc Pharmacy 82.4 ml/min; Est GFR (African American) 94.2 ml/min; Est GFR (Non-African American) 81.3 ml/min; Potassium 4.4 mmol/L (3.5-5.1)
--- NOTE | 2023-10-20 13:47 | Nephrology Progress Note ---
Date of Service October 20, 2023 Assessment & Plan Admission and Anticipated Discharge Date Admission Date: October 19, 2023 Subjective Assessment & Plan (1) Hyponatremia: Acute on chronic issue. He has h/o beer potomania. Na normal when less beer and low when high as per outpt review of labs. He is also on Chlorthalidone which in a person prone to low Na is not a good choice at all and should never be used. the effect of this will be there for few days if he needs diuretics he can have Loop diuretics only. na went up to 125 this AM. Add lasix 40 iv x1 for free water diuresis. Raise NS to 75/hr till AM urea-na 15 bid till AM only not for discharge FFR 1800 ml per day. Hopefully na >130 tomorrow and then Can be discharged. No Chlorthalidone or thiazide diuretics ever. Can have Loop diuretics though. Lisinopril will be restarted for discharge. Stop/lower beer intake. (2) Urinary tract infection: On iV abx but urine C>s from 10/10 was negative. c/s from 10/17 is ?? maybe +ve S---Feels fine. No new problems. making urine and na now up to 125. Physical Exam Physical Exam: General- Not in distress. gonzalo/flushed facial appearance Head- atraumatic Neck- supple, no JVD. Lungs- clear to auscultation no wheezing or crackles. Heart- regular rhythm; no murmur, no gallop. Abdomen- normal bowel sounds, soft, nontender, no distension Extremities- no pretibial edema, no erythema seen Neuro- alert, oriented PERRL, ; no facial palsy; no dysarthria; moves extremities. Results & Data Vital Signs (Past 12 Hours) Vital Signs Temp Pulse Pulse Resp BP BP Pulse Ox 10/20/23 10:50 36.5 C 64 18 130/76 97 10/20/23 07:19 36.7 C 60 18 125/71 96 10/20/23 07:09 53 L 10/20/23 02:49 36.5 C 63 16 126/74 96 O2 Del Method 10/20/23 10:50 Room Air 10/20/23 07:19 Room Air 10/20/23 07:09 10/20/23 02:49 Room Air
--- NOTE | 2023-10-20 13:57 | Urology Progress Note ---
Date of Service October 20, 2023 Assessment & Plan (1) Urinary tract infection: Plan 62yo/M admitted with hyponatremia, UTI, possible prostatitis. He is afebrile and hemodynamically stable. Labs today show normal renal function. Urine culture preliminary no growth. Voiding spontaneously, continue to monitor. Bladder scan PRN. Overall reports an improvement in urinary symptoms. Continue antibiotics and tailor as culture data comes available. Continue tamsulosin. Will arrange outpatient follow-up with our service. Urology will sign off. Please call with any further questions or concerns. Admission and Anticipated Discharge Date Admission Date: October 19, 2023 Subjective Patient seen at bedside Awake, resting in bed on arrival No acute distress Voiding without issue Denies fever, chills, nausea, vomiting Denies hematuria or dysuria Feels he is emptying his bladder well Review of Systems Constitutional: as per Subjective / HPI Genitourinary: + as per Subjective / HPI Physical Exam Constitutional: no acute distress Respiratory: no respiratory distress and no labored breathing Neurologic: moves all extremities and awake Psychiatric: A+Ox3, euthymic affect Results & Data Vital Signs (Past 12 Hours) Vital Signs Temp Pulse Pulse Resp BP BP Pulse Ox 10/20/23 10:50 36.5 C 64 18 130/76 97 10/20/23 07:19 36.7 C 60 18 125/71 96 10/20/23 07:09 53 L 10/20/23 02:49 36.5 C 63 16 126/74 96 O2 Del Method 10/20/23 10:50 Room Air 10/20/23 07:19 Room Air 10/20/23 07:09 10/20/23 02:49 Room Air PG Care Time/CCT Total # of Minutes Spent Total Time Spent with Patient: Total time spent is greater than 50% in coordination of care (as documented) at patient's floor/unit and/or counseling patient: Coding Level of Care Code 60375 SUB INP/OBS CARE 2/35MIN Diagnoses Urinary tract infection N39.0
--- NOTE | 2023-10-20 15:08 | Hospitalist Progress Note ---
Date of Service October 20, 2023 Assessment & Plan (1) Hyponatremia: (2) Prostatitis, acute: (3) Chronic anticoagulation: (4) Alcohol abuse: (5) Alcohol withdrawal syndrome without complication: Plan Patient with significant hyponatremia due to chlorthalidone and beer [place]. Slowly improving. Reviewed nephrology recommendations, just IV fluids, additional IV Lasix, continue urea Reviewed urology recommendations, can continue to follow outpatient Urine culture shows no significant growth, Will continue Rocephin while in hospital then discontinue at discharge [facility] for MedSurg Continue to monitor for alcohol withdrawal, has not needed any as needed medications at this time. Anticipate discharge tomorrow if sodium continues to improve Admission and Anticipated Discharge Date Admission Date: October 19, 2023 Subjective Patient feels well, wants to go home. No significant alcohol withdrawal symptoms. Voiding without difficulties Physical Exam Physical Exam: Constitutional: Alert HEENT: Mucous membranes moist. Lungs: Clear to auscultation, decreased, no wheezes rales or rhonchi CV: S1-S2, regular Abdomen: Soft, nontender, nondistended Extremities: No significant edema Neuro: No focal deficits, no tremor Psych: Cooperative, normal mood Results & Data Results & Data Vital Signs (Past 12 Hours) Vital Signs Temp Pulse Pulse Resp BP BP Pulse Ox 10/20/23 10:50 36.5 C 64 18 130/76 97 10/20/23 07:19 36.7 C 60 18 125/71 96 10/20/23 07:09 53 L O2 Del Method 10/20/23 10:50 Room Air 10/20/23 07:19 Room Air 10/20/23 07:09 Diagnostic Findings Reviewed imaging, laboratory and diagnostic studies. Pertinent findings as below. Sodium 125 Creatinine 0.99
[2023-10-20] MEDS: FUROSEMIDE 40 MG/4 ML VIAL IV ONE (15:27)
[2023-10-21] MEDS: GABAPENTIN 600 MG TAB PO SCH (05:26)
[2023-10-21 06:54] LABS: Hematocrit (blood only) 36.3 % (42.0-52.0); Hemoglobin 12.7 g/dl (14.0-18.0); Mean Corpuscular Hemoglobin 30.5 pg (25.0-34.0); Mean Corpuscular Volume 87.3 fL (80.0-100.0); Mean Platelet Volume 9.2 fL (9.4-12.4); Platelet Count 349 K/uL (130-400); RDW Coefficient of Variation 11.6 % (11.5-14.5); RDW Standard Deviation 37.2 fL (36.4-46.3); Red Blood Count 4.16 M/uL (4.70-6.10); White Blood Count 8.36 K/ul (4.8-10.8)
[2023-10-21 07:11] LABS: BUN Creatinine Ratio 34.1 (10-20); Est GFR (African American) 108.2 ml/min; Est GFR (Non-African American) 93.4 ml/min; Magnesium 1.8 mg/dl (1.7-2.4); Potassium 4.1 mmol/L (3.5-5.1)
--- NOTE | 2023-10-21 11:05 | Discharge Summary ---
Discharge Summary Date of Service October 21, 2023 Principal Dx & Hospital Course #1 = Principal Diagnosis (1) Hyponatremia: (2) Prostatitis, acute: (3) Chronic anticoagulation: (4) Alcohol abuse: (5) Alcohol withdrawal syndrome without complication: Plan Patient presented to the emergency room with complaints of some urinary symptoms associated with a prostatitis and was noted to be hyponatremic. Patient was admitted to the hospital. His hyponatremia is combination of excessive beer intake, beer [place] k[place] as well as medication of chlorthalidone. He was placed on fluid restriction. Chlorthalidone was discontinued. He was monitored for alcohol withdrawal. He was placed on IV antibiotics for presumed prostatitis. Urology and nephrology consultations were obtained. Urology recommended continuing on the Flomax and antibiotics. They recommend outpatient follow-up after discharge. Patient was followed by nephrology. He was given some IV fluids as well as some IV Lasix. His sodium level is slowly improved but then plateaued. Urea was added to his medical regimen. With this his slow sodium level slowly improved. His urinary complaints resolved with the antibiotic treatment his other laboratory studies stabilized. On the day of discharge she was completely asymptomatic from his hyponatremia. It was slowly improving and anticipate that will continue to improve as long as he does stop drinking beer a nd stops the chlorthalidone. He can follow-up with nephrology. During his hospitalization he had no significant alcohol withdrawal symptoms did not require any medications for alcohol withdrawal. In the day of discharge it was stressed to him that he should stop drinking all beer and alcohol. He should eat a healthy diet that is not necessarily limited in any salt. And he can follow-up with his outpatient providers. Notes For Next Care Provider Medication Changes From Visit Chlorthalidone discontinued Lisinopril dose cut in half blood pressure is overall well-controlled in hospital. Admission HPI Per Admitting Provider 62-year-old male with past medical history significant for prediabetes, mixed hyperlipidemia, hypertension, GERD, BPH, hereditary and idiopathic peripheral neuropathy, ongoing tobacco abuse, history of pulmonary embolism and history of DVT comes because of urinary symptoms also found to have hyponatremia. Patient states last week he went to urgent care in [place] because of difficulty micturating and was told possible prostatitis and was prescribed Bactrim. Started taking Bactrim last Tuesday. Initially symptoms seem to improved. Has an appointment with [facility] October 18. But since Tuesday again he started to develop same symptoms and came here. Has lower abdominal pain. When he came in lower abdominal pain was 7/10 in severity. He did not notice any blood in the urine. Somewhat constipated. Not eating much since his symptoms started. Denies any fevers. No chest pain or shortness of breath. No cough. No headache. No blurred vision. No runny nose or sore throat. Patient states smokes 1-1 and half packs cigarettes daily. Drinks 10-12 beers daily. Smokes marijuana couple of times a week. Patient states he did not drink alcohol this whole this week and he does not think will go through withdrawal. Past medical history. As mentioned above past surgical history. Colonoscopy. Social history. Smokes 1-1 and a pack a day for last 35 years. Alcohol 10-12 beers daily. Smokes marijuana couple of times a week. Family history. Mother had diabetes And hypertension. Admission Exam Per Admitting Provider See H&P Discharge Exam Constitutional: Alert HEENT: Mucous membranes moist. Lungs: Clear to auscultation, decreased, no wheezes rales or rhonchi CV: S1-S2, regular Abdomen: Soft, nontender, nondistended Extremities: No significant edema Neuro: No focal deficits Psych: Cooperative, normal mood Updated Medication List Medication Instructions Recorded Confirmed Type apixaban 5 mg tablet (Eliquis) 5 mg PO BID 10/19/23 10/19/23 History chlorthalidone 25 mg tablet 12.5 mg PO QAM 10/19/23 10/19/23 History fluoxetine 20 mg capsule 20 mg PO [facility] 10/19/23 10/19/23 History lisinopril 40 mg tablet 40 mg PO DAILY 10/19/23 10/19/23 History metoprolol succinate 25 mg 12.5 mg PO HS 10/19/23 10/19/23 History tablet,extended release 24 hr omeprazole 20 mg capsule,delayed 20 mg PO DAILYBB 10/19/23 10/19/23 History release pravastatin 10 mg tablet 10 mg PO QAM 10/19/23 10/19/23 History sulfamethoxazole 800 1 tab PO BID 10/19/23 10/19/23 History mg-trimethoprim 160 mg tablet tamsulosin 0.4 mg capsule 0.4 mg PO [facility] 10/19/23 10/19/23 History lisinopril 20 mg tablet 20 mg PO DAILY #30 tabs 10/21/23 Rx Hospital Stay Data Consultations 10/19/23 00:10 ED Decision to Admit Stat 10/19/23 08:00 Consult Nephrology Routine Consult Urology Routine Diagnostic Imagining Performed 10/18/23 19:36 CT abd pelvis IV con only Stat Reviewed imaging, laboratory and diagnostic studies. Pertinent findings as below. Hemoglobin 12.7 Platelets 349 Sodium 127 Creatinine 0.85 Urine culture no growth Pending Results Patient Have Any Pending Studies at Discharge: No Discharge Instructions Given to Patient (Per Discharging Provider) Strongly recommend you stop all beer Total Time Total Time Spent Total Time Spent (In Minutes): 35
--- NOTE | 2023-10-21 12:11 | Nephrology Progress Note ---
Date of Service October 21, 2023 Assessment & Plan Admission and Anticipated Discharge Date Admission Date: October 19, 2023 Subjective Subjective Assessment & Plan (1) Hyponatremia: Acute on chronic issue. He has h/o beer potomania. Na normal when less beer and low when high as per outpt review of labs. He is also on Chlorthalidone which in a person prone to low Na is not a good choice at all and should never be used. the effect of this will be there for few days if he needs diuretics he can have Loop diuretics only. na went up to 127 this AM. FFR 1800 ml per day. No Chlorthalidone or thiazide diuretics ever. Can have Loop diuretics though if needed. Lisinopril will be restarted for discharge. Stop/lower beer intake--this is the main advice. his na has been low when lot of beer and normal when he stops for a while !!! f/u nephrology in [place]. Discharge plan D/w primary team (2) Urinary tract infection: On iV abx but urine C>s from 10/10 was negative. c/s from 10/17 is ?? maybe +ve S---Feels fine. No new problems. making urine and na now up to 127 now.. Physical Exam Physical Exam: General- Not in distress. gonzalo/flushed facial appearance Head- atraumatic Neck- supple, no JVD. Lungs- clear to auscultation no wheezing or crackles. Heart- regular rhythm; no murmur, no gallop. Abdomen- normal bowel sounds, soft, nontender, no distension Extremities- no pretibial edema, no erythema seen Neuro- alert, oriented PERRL, ; no facial palsy; no dysarthria; moves extremities. Results & Data Vital Signs (Past 12 Hours) Vital Signs Temp Pulse Resp BP Pulse Ox O2 Del Method 10/21/23 07:04 36.5 C 61 16 149/78 H 97 Room Air
[2023-10-22] MEDS ORDERED: GABAPENTIN 600 MG TAB PO SCH (18:00)
== END 2023-10-21 13:01 | disposition home or self-care (01) | DRG 897 ==
LOC: ED 19:24 → EDINP 10-19 03:34 → SUATTDRO 10-19 03:34 → 2S 10-19 05:44 → 1E 10-20 15:44 → 3N 10-20 17:07